=== PATIENT | female | born 1935 | race Caucasian/White ===

== ENCOUNTER 2017-06-15 11:51 | Inpatient (IN) | payer MEDICARE, BC ==
[~2017-06-15] VITALS: Ht 167.6 cm; Wt 57.8 kg
[2017-06-15] VITALS (11 sets, daily range): BP systolic 136–159; BP diastolic 67–86; PULSE 86–101; RESP 20–25; TEMP 95.5–98.6; O2SAT 92–99
[~2017-06-15 11:51] MED LIST: ASPI81TA82 PO; CETI10 PO; CIPRHC10A EACH EAR; DIOV160T60 PO; DORZ1SOL2 EACH EYE; LEVO88TA2 PO; MOTR200T PO; NORV10TA PO; WELC625T2 PO; ZITH250T PO
[2017-06-15] MEDS ORDERED: PROPOFOL 200 MG/20 ML AMP IV ONE (12:00)
[2017-06-15] MEDS ORDERED: SODIUM CHLORIDE 0.9% FLUSH 10 ML FLUSH IVF PRN (12:00)
[2017-06-15 12:22] LABS: AUTOMATED NEUTROPHIL # 5.5 TH/MM3 (1.8-7.7); BASOPHIL # 0.1 TH/MM3 (0-0.2); BASOPHIL % 0.7 % (0.0-2.0); EOSINOPHIL # 0.1 TH/MM3 (0-0.4); EOSINOPHIL % 0.8 % (0.0-4.0); HEMATOCRIT 40.4 % (35.0-46.0); HEMOGLOBIN 13.4 GM/DL (11.6-15.3); LYMPH % 16.1 % (9.0-44.0); LYMPHOCYTE # 1.2 TH/MM3 (1.0-4.8); MEAN CELL VOLUME 87.2 FL (80.0-100.0); MEAN CORPUSCULAR HGB CONC 33.3 % (32.0-36.0); MEAN PLATELET VOLUME 7.9 FL (7.0-11.0); MONO % 9.6 % (0.0-8.0); MONOCYTE # 0.7 TH/MM3 (0-0.9); NEUT % 72.8 % (16.0-70.0); PLATELET COUNT 326 TH/MM3 (150-450); RED BLOOD COUNT 4.63 MIL/MM3 (4.00-5.30); RED CELL DISTRIBUTION WIDTH 14.9 % (11.6-17.2); WHITE BLOOD COUNT 7.6 TH/MM3 (4.0-11.0)
--- NOTE | 2017-06-15 12:25 | PD ---
HPI Chief Complaint: Neuro Symptoms/ Deficits Time Seen by Provider: 11:58 Travel History International Travel<30 days: No (UNABLE TO OBTAIN) Contact w/Intl Traveler<30days: No (UNABLE TO OBTAIN) Traveled to known affect area: No (UNABLE TO OBTAIN) History of Present Illness HPI The patient is a 81-year-old female who presents to the emergency department via EMS as a stroke. According to EMS the patient has some type of muscular dystrophy, they could not elaborate, and stated the patient got up at 5 AM to use the bathroom. The patient was able to ambulate at that time and was speaking according to the who is on scene when they arrived. However, the patient then went and sat in her chair, the stated she was not speaking or moving the right aspect of the body. The patient presented at 11:55 AM, she was aphasic and unable to give any history. No further information was obtainable from the history. The timeframe was obtained from EMS he was on scene and had a discussion with the . PFSH Past Medical History Hx Anticoagulant Therapy: No Cardiovascular Problems: No High Cholesterol: Yes Chemotherapy: No Cerebrovascular Accident: No Diabetes: No Glaucoma: Yes Hypertension: Yes Respiratory: No Thyroid Disease: Yes Menopausal: Yes Past Surgical History Hysterectomy: Yes Joint Replacement: Yes (bilat hip, left knee) Social History Alcohol Use: Yes (occas. wine) Tobacco Use: No Substance Use: No Allergies-Medications (Allergen,Severity, Reaction): Coded Allergies: amoxicillin (Unverified Allergy, Mild, rash, 06/15/17) Reported Meds & Prescriptions Reported Meds & Active Scripts Active Review of Systems ROS Limitations: Clinical Condition, Speech Impaired Except as stated in HPI: all other systems reviewed are Neg Neurologic: Positive: Focal Abnormalities, Other (unable to speak) Physical Exam Narrative GENERAL: Awake, 81 year-old female who appears her stated age and is in no acute respiratory distress. She is unable to speak. SKIN: Focused skin assessment warm/dry. HEAD: Atraumatic. Normocephalic. EYES: Pupils equal and round. 3 mm bilateral. Patient will look at me when I' m on the left side, but does not notice me when I stand on the right side. ENT: No nasal bleeding or discharge. Mucous membranes pink and moist. NECK: Trachea midline. No JVD. CARDIOVASCULAR: Irregularly irregular, tachycardic with a heart rate over 5. RESPIRATORY: No accessory muscle use. Clear to auscultation. Breath sounds equal bilaterally. GASTROINTESTINAL: Abdomen soft, non-tender, nondistended. No rebound tenderness. MUSCULOSKELETAL: No obvious deformities. No clubbing. No cyanosis. No edema. NEUROLOGICAL: Awake and alert. Facial droop on the right side noted. Will not move the right arm or leg. Does not withdraw the right arm or leg to pain. Is able to move her left upper extremity and her left upper extremity. Apparent neglect on the right side of the body. Unable to answer questions in regards to orientation as she is currently aphasic. PSYCHIATRIC: Unable to evaluate. Data Data Last Documented VS Vital Signs Date Time Temp Pulse Resp B/P (MAP) Pulse Ox O2 Delivery O2 Flow Rate FiO2 06/15/17 12:04 93 Room Air 06/15/17 12:01 97.8 101 20 159/86 (110) Orders Orders Electrocardiogram (06/15/17 11:59) Prothrombin Time / Inr (Pt) (06/15/17 11:59) Act Partial Throm Time (Ptt) (06/15/17 11:59) Complete Blood Count With Diff (06/15/17 11:59) Comprehensive Metabolic Panel (06/15/17 11:59) Creatine Kinase (Cpk) (06/15/17 11:59) Troponin I (06/15/17 11:59) Urinalysis - C+S If Indicated (06/15/17 11:59) Ct Brain W/O Iv Contrast(Rout) (06/15/17 11:59) Chest, Single Ap (06/15/17 11:59) Ecg Monitoring (06/15/17 11:59) Iv Access Insert/Monitor (06/15/17 11:59) Oximetry (06/15/17 11:59) Sodium Chloride 0.9% Flush (Ns Flush) (06/15/17 12:00) I-Stat Creatinine (06/15/17 12:05) Cta Brain W Iv Contrast W 3d (06/15/17 12:06) Cta Neck W Iv Contrast W 3d (06/15/17 12:06) I-Stat Profile (06/15/17 12:05) Urinary Catheter Insert/Apply (06/15/17 12:42) Iohexol 350 Inj (Omnipaque 350 Inj) (06/15/17 12:44) Angiogram, Cerebral Wo Arch (06/15/17 ) Labs Laboratory Tests Test 06/15/17 12:05 White Blood Count 7.6 TH/MM3 Red Blood Count 4.63 MIL/MM3 Hemoglobin 13.4 GM/DL Bedside Hemoglobin 14.3 G/DL Hematocrit 40.4 % Bedside Hematocrit 42.0 % Mean Corpuscular Volume 87.2 FL Mean Corpuscular Hemoglobin 29.0 PG Mean Corpuscular Hemoglobin Concent 33.3 % Red Cell Distribution Width 14.9 % Platelet Count 326 TH/MM3 Mean Platelet Volume 7.9 FL Neutrophils (%) (Auto) 72.8 % Lymphocytes (%) (Auto) 16.1 % Monocytes (%) (Auto) 9.6 % Eosinophils (%) (Auto) 0.8 % Basophils (%) (Auto) 0.7 % Neutrophils # (Auto) 5.5 TH/MM3 Lymphocytes # (Auto) 1.2 TH/MM3 Monocytes # (Auto) 0.7 TH/MM3 Eosinophils # (Auto) 0.1 TH/MM3 Basophils # (Auto) 0.1 TH/MM3 CBC Comment DIFF FINAL Differential Comment Prothrombin Time 10.9 SEC Prothromb Time International Ratio 1.1 RATIO Activated Partial Thromboplast Time 23.8 SEC Bedside Sodium 142 MMOL/L Blood Urea Nitrogen 21 MG/DL Creatinine 0.55 MG/DL Random Glucose 105 MG/DL Total Protein 7.6 GM/DL Albumin 3.9 GM/DL Calcium Level 9.0 MG/DL Alkaline Phosphatase 74 U/L Aspartate Amino Transf (AST/SGOT) 27 U/L Alanine Aminotransferase (ALT/SGPT) 35 U/L Total Bilirubin 0.7 MG/DL Sodium Level 141 MEQ/L Potassium Level 3.0 MEQ/L Chloride Level 107 MEQ/L Carbon Dioxide Level 21.7 MEQ/L Bedside Potassium 3.0 MMOL/L Bedside Chloride 109 MMOL/L Anion Gap 12 MEQ/L Bedside Blood Urea Nitrogen 21 MG/DL Bedside Creatinine 0.4 MG/DL Estimat Glomerular Filtration Rate 107 ML/MIN Bedside Glucose 104 MG/DL Total Creatine Kinase 73 U/L Troponin I LESS THAN 0.02 NG/ML MDM Medical Decision Making Medical Screen Exam Complete: Yes Emergency Medical Condition: Yes Medical Record Reviewed: Yes Interpretation(s) EKG reveals atrial fibrillation with RVR, rate 100. Nonspecific ST changes noted in lead V5 and V6. Laboratory Tests Test 06/15/17 12:05 White Blood Count 7.6 TH/MM3 Red Blood Count 4.63 MIL/MM3 Hemoglobin 13.4 GM/DL Bedside Hemoglobin 14.3 G/DL Hematocrit 40.4 % Bedside Hematocrit 42.0 % Mean Corpuscular Volume 87.2 FL Mean Corpuscular Hemoglobin 29.0 PG Mean Corpuscular Hemoglobin Concent 33.3 % Red Cell Distribution Width 14.9 % Platelet Count 326 TH/MM3 Mean Platelet Volume 7.9 FL Neutrophils (%) (Auto) 72.8 % Lymphocytes (%) (Auto) 16.1 % Monocytes (%) (Auto) 9.6 % Eosinophils (%) (Auto) 0.8 % Basophils (%) (Auto) 0.7 % Neutrophils # (Auto) 5.5 TH/MM3 Lymphocytes # (Auto) 1.2 TH/MM3 Monocytes # (Auto) 0.7 TH/MM3 Eosinophils # (Auto) 0.1 TH/MM3 Basophils # (Auto) 0.1 TH/MM3 CBC Comment DIFF FINAL Differential Comment Prothrombin Time 10.9 SEC Prothromb Time International Ratio 1.1 RATIO Activated Partial Thromboplast Time 23.8 SEC Bedside Sodium 142 MMOL/L Blood Urea Nitrogen 21 MG/DL Creatinine 0.55 MG/DL Random Glucose 105 MG/DL Total Protein 7.6 GM/DL Albumin 3.9 GM/DL Calcium Level 9.0 MG/DL Alkaline Phosphatase 74 U/L Aspartate Amino Transf (AST/SGOT) 27 U/L Alanine Aminotransferase (ALT/SGPT) 35 U/L Total Bilirubin 0.7 MG/DL Sodium Level 141 MEQ/L Potassium Level 3.0 MEQ/L Chloride Level 107 MEQ/L Carbon Dioxide Level 21.7 MEQ/L Bedside Potassium 3.0 MMOL/L Bedside Chloride 109 MMOL/L Anion Gap 12 MEQ/L Bedside Blood Urea Nitrogen 21 MG/DL Bedside Creatinine 0.4 MG/DL Estimat Glomerular Filtration Rate 107 ML/MIN Bedside Glucose 104 MG/DL Total Creatine Kinase 73 U/L Troponin I LESS THAN 0.02 NG/ML Last Impressions Head CTA 06/15/17 1206 Signed Impressions: Service Date/Time: Thursday, June 15, 2017 12:28 - CONCLUSION: 1. Presumed embolus to the left M2 segment with partial occlusion of the left MCA territory. 2. Results were called to Dr. Mckinley in the ED at the time of this dictation. Anjel Jauregui MD Head CT 06/15/17 1159 Signed Impressions: Service Date/Time: Thursday, June 15, 2017 12:28 - CONCLUSION: 1. No acute intracranial abnormalities. Casper Mason MD Chest X-Ray 06/15/17 1159 Signed Impressions: Service Date/Time: Thursday, June 15, 2017 12:17 - CONCLUSION: 1. Bilateral mostly basilar airspace disease. Cardiomegaly. Differential diagnosis includes infection and pulmonary edema. Casper Mason MD Differential Diagnosis Differential diagnosis includes CVA, hemorrhage, embolic phenomenon, thrombosis , hypoglycemia, TIA, dissection. Narrative Course IV was established, labs are drawn and sent, and the patient was placed on cardiac telemetry monitoring and continuous pulse oximetry monitoring. EKG was ordered and interpreted. The patient's symptoms apparently started at 5 AM, she was last seen normal, she presented at 11:55 AM, 7 hours from onset. I discussed the patient with the on-call neurologist immediately, Dr. Dominguez, who agrees with CT and CTA to evaluate if there is any interventional radiology intervention warranted. I-STAT was ordered, creatinine was 0.4. I called CT at 12:19 PM and they stated they would call back when he had a room open as they were currently evaluating a stroke alert. CT callback at 12:22 PM and stated the patient could go to room 1. I had a discussion with the patient's at 12:22 PM, he states he last saw her normal at [address] Dominguez the neurologist was in the emergency department at 12:24 PM. I discussed the patient with the interventional radiologist, Dr. Jauregui at 12:47 PM, the patient has a large clot in the left MCA, is a candidate for interventional radiology intervention. I had a discussion with the patient's at bedside who agrees with plan of care. A call was placed back to Dr. Dominguez as well as the on-call health advisor for the intensive surgical care unit as the patient will need to go to [facility] after IR. Critical Care Narrative Aggregate critical care time was 40 minutes. Time to perform other separately billable procedures was not included in the critical care time. My time did not include minutes spent treating any other patients simultaneously or on activities that did not directly contribute to the patient's treatment. The services I provided to this patient were to treat and/or prevent clinically significant deterioration that could result in: Anoxia, hypoxia, hemorrhage, neurologic deficit. I provided critical care services requiring my management, as noted below: Chart data review, documentation time, medication orders and management, vital sign assessments/reviewing monitor data, ordering and reviewing lab tests, ordering and interpreting/reviewing x-rays and diagnostic studies, care of the patient and discussion of the patient with the admitting physicians. Physician Communication Physician Communication A call was placed to the on-call health advisor. I discussed the patient with Dr. Zamora who agrees with admission after the patient goes to IR for neurologic checks in the [facility] overnight. Diagnosis Primary Impression: CVA (cerebral vascular accident) Qualified Codes: I63.9 - Cerebral infarction, unspecified Additional Impression: Aphasic stroke Admitting Information Admitting Physician Requests: Admit Condition: Serious Porfirio Mckinley MD Jun 15, 2017 12:25
[2017-06-15 12:32] LABS: INTERNATIONAL NORMALIZED RATIO 1.1 RATIO; PROTHROMBIN TIME - PATIENT 10.9 SEC (9.8-11.6)
[2017-06-15 12:36] LABS: ALBUMIN 3.9 GM/DL (3.4-5.0); AST (GOT) 27 U/L (15-37); BICARBONATE 21.7 MEQ/L (21.0-32.0); BLOOD UREA NITROGEN 21 MG/DL (7-18); CHLORIDE 107 MEQ/L (98-107); CREATININE 0.55 MG/DL (0.50-1.00); GLOMERULAR FILTRATION RATE 107 ML/MIN (>89); SODIUM (NA) 141 MEQ/L (136-145)
[2017-06-15 12:39] LABS: GLUCOSE,RANDOM 105 MG/DL (74-106)
[2017-06-15] MEDS ORDERED: IOHEXOL 350 MG/ML 10 ML VIAL (for RAD DIAG) IVCONTRAST ONE (12:44)
--- NOTE | 2017-06-15 12:44 | RADRPT ---
EXAM DATE/TIME: 06/15/2017 12:28 [facility] COMPARISON: No previous studies available for comparison. INDICATIONS : Right side weakness. RADIATION DOSE: 33.22 CTDIvol (mGy) MEDICAL HISTORY : Non-responsive. SURGICAL HISTORY : Non-responsive. ENCOUNTER: Initial ACUITY: 1 day PAIN SCALE: Non-responsive LOCATION: cranial TECHNIQUE: Multiple contiguous axial images were obtained of the head. Using automated exposure control and adj ustment of the mA and/or kV according to patient size, radiation dose was kept as low as reasonably a chievable to obtain optimal diagnostic quality images. DICOM format image data is available electro nically for review and comparison. FINDINGS: CEREBRUM: The ventricles are normal for age. No evidence of midline shift, mass lesion, hemorrhage or acute in farction. No extra-axial fluid collections are seen. POSTERIOR FOSSA: The cerebellum and brainstem are intact. The 4th ventricle is midline. The cerebellopontine angle i s unremarkable. EXTRACRANIAL: The visualized portion of the orbits is intact. SKULL: The calvaria is intact. No evidence of skull fracture. CONCLUSION: 1. No acute intracranial abnormalities. Casper Mason MD on June 15, 2017 at 12:40 Board Certified Radiologist. This report was verified electronically.
[2017-06-15 12:48] LABS: ALKALINE PHOSPHATASE 74 U/L (45-117); ALT (GPT) 35 U/L (10-53); TOTAL BILIRUBIN ADULT 0.7 MG/DL (0.2-1.0); TOTAL PROTEIN 7.6 GM/DL (6.4-8.2); TROPONIN I LESS THAN 0.02 NG/ML (0.02-0.05)
--- NOTE | 2017-06-15 12:50 | RADRPT ---
EXAM DATE/TIME: 06/15/2017 12:28 [facility] COMPARISON: No previous studies available for comparison. INDICATIONS : Right side weakness IV CONTRAST: 71 cc Omnipaque 350 (iohexol) IV ; Cumulative dose for multiple exams. RADIATION DOSE: 26.66 CTDIvol (mGy) ; Combined studies MEDICAL HISTORY : Hypertension. Thyroid disease SURGICAL HISTORY : Hysterectomy. ENCOUNTER: Initial ACUITY: 1 day PAIN SCALE: Non-responsive LOCATION: cranial TECHNIQUE: Volumetric scanning was performed using a multi-row detector CT scanner. The data was post processed with a variety of visualization algorithms including full volume maximum intensity projection, multi -planar sliding thin slab reformation, curved planar reformation, and surface rendering techniques. Using automated exposure control and adjustment of the mA and/or kV according to patient size, radiat ion dose was kept as low as reasonably achievable to obtain optimal diagnostic quality images. DICO M format image data is available electronically for review and comparison. FINDINGS: There is excellent visualization of the major intracranial arteries out to the second-order branch ve ssels. Partially occlusive thrombus in the anterior segment of the left MCA territory. Intracranial v essels are otherwise patent without aneurysmal disease. CONCLUSION: 1. Presumed embolus to the left M2 segment with partial occlusion of the left MCA territory. 2. Results were called to Dr. Mckinley in the ED at the time of this dictation. Anjel Jauregui MD on June 15, 2017 at 12:44 Board Certified Radiologist. This report was verified electronically.
--- NOTE | 2017-06-15 12:53 | RADRPT ---
EXAM DATE/TIME: 06/15/2017 12:17 [facility] COMPARISON: No previous studies available for comparison. INDICATIONS : CVA MEDICAL HISTORY : None known SURGICAL HISTORY : None known ENCOUNTER: Initial ACUITY: 1 day PAIN SCORE: Non-responsive. LOCATION: Bilateral chest FINDINGS: A single view of the chest demonstrates bilateral mostly basilar airspace disease and small effusions . Cardiomegaly. Tortuous aorta. No pneumothorax. CONCLUSION: 1. Bilateral mostly basilar airspace disease. Cardiomegaly. Differential diagnosis includes infection and pulmonary edema. Casper Mason MD on June 15, 2017 at 12:50 Board Certified Radiologist. This report was verified electronically.
[2017-06-15] MEDS: SODIUM CHLOR 0.9% 1000 ML INJ 1,000 ML IV SCH (13:00)
[2017-06-15] MEDS ORDERED: GLUCAGON 1 MG/ML VIAL OTHER PRN (13:00)
[2017-06-15] MEDS ORDERED: SODIUM CHLORIDE 0.9% FLUSH 10 ML FLUSH IV FLUSH PRN ×2 (13:00→13:15)
[2017-06-15] MEDS ORDERED: DEXTROSE 50% IN WATER 50 ML VIAL(D50) IV PUSH PRN (13:00)
[2017-06-15] MEDS ORDERED: SENNOSIDES 8.6 MG TAB PO PRN (13:15)
[2017-06-15] MEDS ORDERED: BISACODYL 10 MG SUPP RECTAL PRN (13:15)
[2017-06-15] MEDS ORDERED: RESP: ALBUTEROL 2.5 MG/3 ML NEB (PRN) INH (13:15)
[2017-06-15] MEDS ORDERED: ACETAMINOPHEN/HYDROcodone 325 MG/5 MG TAB PO PRN (13:15)
[2017-06-15] MEDS ORDERED: LACTULOSE SYRUP 20 GM/30 ML CUP PO PRN (13:15)
[2017-06-15] MEDS ORDERED: ACETAMINOPHEN 325 MG TAB PO PRN (13:15)
[2017-06-15] MEDS ORDERED: MISCELLANEOUS NURSING INFORMATION XX SCH (13:15)
[2017-06-15] MEDS ORDERED: CHLORHEXIDINE GLUCONATE 2 % 1 PACK (2 CLOTHS) TOP PRN (13:15)
[2017-06-15] MEDS ORDERED: MAGNESIUM HYDROXIDE SUSP 30 ML CUP PO PRN (13:15)
[2017-06-15] MEDS ORDERED: ONDANSETRON HCL 4 MG/2 ML VIAL IV PUSH PRN (13:15)
[2017-06-15] MEDS ORDERED: VERAPAMIL HCL 5 MG/2 ML VIAL ONE (13:16)
[2017-06-15 13:27] LABS: BACTERIA, URINE RARE /hpf; BILIRUBIN, URINE NEG (NEG); BLOOD, URINE NEG (NEG); GLUCOSE,URINE NEG (NEG); KETONE, URINE 40 mg/dL (NEG); MUCUS URINE FEW /lpf (OCC); NITRITE,URINE NEG (NEG); PH, URINE 5.5 (5.0-8.5); URINE COLOR YELLOW (YELLW/STRAW); URINE LEUKOCYTE ESTERASE NEG (NEG)
--- NOTE | 2017-06-15 13:38 | RADRPT ---
EXAM DATE/TIME: 06/15/2017 12:28 [facility] COMPARISON: No previous studies available for comparison. INDICATIONS : Right side weakness IV CONTRAST: 71 cc Omnipaque 350 (iohexol) IV ; Cumulative dose for multiple exams. RADIATION DOSE: 26.66 CTDIvol (mGy) ; Combined studies MEDICAL HISTORY : Hypertension. Thyroid disease SURGICAL HISTORY : Hysterectomy. ENCOUNTER: Initial ACUITY: 1 day PAIN SCALE: Non-responsive LOCATION: cranial Elevated flow velocities and ICA/CCA ratios have been found to correlate with increased degrees of vessel stenosis, calculated as percentage of diameter relative to a normal segment of distal ICA/CCA. TECHNIQUE: Volumetric scanning was performed using a multirow detector CT scanner. The data was post processed with a variety of visualization algorithms including full-volume maximum intensity projection, multip lanar sliding thin-slab reformation, curved-planar reformation, and surface-rendering techniques. Us ing automated exposure control and adjustment of the mA and/or kV according to patient size, radiatio n dose was kept as low as reasonably achievable to obtain optimal diagnostic quality images. DICOM f ormat image data is available electronically for review and comparison. FINDINGS: AORTIC ARCH: There is a three-vessel origin of the great vessels from the aorta. Mild calcified plaque at the orig in of the brachiocephalic and left subclavian arteries with resultant mild stenosis of the left subcl serg artery origin. RIGHT CAROTID: The common carotid artery is intact. The carotid bulb has a normal configuration without ulceration o r narrowing. Minimal focal calcified plaque in the proximal right internal carotid artery without sig nificant stenosis. The internal carotid artery lumen is otherwise smooth without stenosis. The exter nal carotid artery is intact. LEFT CAROTID: The common carotid artery is intact. The carotid bulb has a normal configuration without ulceration or narrowing. Mild eccentric primarily calcified plaque in the proximal carotid artery with resultan t less than 20% stenosis. The internal carotid artery lumen is otherwise smooth without stenosis. Th e external carotid artery is intact. VERTEBRALS: The vertebral arteries have a symmetric diameter. No stenotic lesions are seen. Nonvascular findings: Visualized lung apices demonstrate moderate lateral pleural effusions with diffuse groundglass opacit ies in the lung apices consistent with a pulmonary edema pattern. No significant cervical adenopathy or mass. CONCLUSION: 1. Minimal focal plaque in the proximal right internal carotid arteries without flow-limiting stenosi s. 2. Mild eccentric primarily calcified plaque in the proximal left internal carotid artery with result ant less than 40% stenosis. 3. Codominant patent vertebral arteries. 4. Incidental note of moderate bilateral pleural effusions with diffuse groundglass opacities in the visualized lung apices consistent with pulmonary edema pattern. Crispin Boyce MD on June 15, 2017 at 13:25 Board Certified Radiologist. This report was verified electronically.
[2017-06-15] MEDS ORDERED: MORPHINE SULFATE 2 MG/ML INJ IV PUSH PRN (13:45)
[2017-06-15] MEDS ORDERED: VANCOMYCIN HCL 1000 MG VIAL ONE (14:04)
[2017-06-15] MEDS ORDERED: SODIUM CHLOR 0.9% 250 ML INJ 250 ML ONE (14:04)
[2017-06-15] MEDS ORDERED: HEPARIN SODIUM - IV 10,000 UNITS/10 ML VIAL ONE (14:10)
[2017-06-15] MEDS ORDERED: NITROGLYCERIN 2% OINT 1 GM PACKET ONE (14:19)
[2017-06-15] MEDS ORDERED: IODIXANOL 320 MG/ML 50 ML VIAL (for RAD SPEC) I-ARTERIAL ONE (14:32)
--- NOTE | 2017-06-15 14:49 | HHI.HP ---
HPI Service Critical Care Medicine Primary Care Physician Unknown Admission Diagnosis CVA with aphasia, left MCA infarct Diagnosis: (1) NSAID long-term use Diagnosis: Secondary (2) Dyslipidemia Diagnosis: Secondary (3) Hypertension Diagnosis: Principal (4) Atrial fibrillation Diagnosis: Principal (5) Hypothyroidism Diagnosis: Principal (6) Glaucoma Diagnosis: Secondary (7) Muscular dystrophy Diagnosis: Principal (8) CVA (cerebral vascular accident) Diagnosis: Principal (9) Aphasic stroke Diagnosis: Principal Chief Complaint: Last seen normal state of health at 5 AM. Currently with aphasia and Right sided weakness. Travel History International Travel<30 Days: No (UNABLE TO OBTAIN) Contact w/Intl Traveler <30 Da: No (UNABLE TO OBTAIN) Traveled to Known Affected Are: No (UNABLE TO OBTAIN) History of Present Illness 81-year-old female. Date of admission 06/15/2017. Past medical history includes muscular dystrophy/genetic unknown type, glaucoma, hypothyroidism, hypertension dyslipidemia. She also uses chronic NSAIDs 4.. Patient presents to [place] ED the following history. Approximately 5 AM, patient acute onset of right-sided weakness she has baseline muscular dystrophy with decreased range of motion. She does use a walker to ambulate at baseline. Upon presentation patient to collect right-sided, right upper and lower extremity flaccidity. Normal strength/sensation left upper and lower extremity. Stroke alert was called. CT brain revealed no acute intracranial findings. CT angiogram of the brain revealed occlusion of the left M2 segment of the MCA. Patient is currently in IR for stent thrombosis retrieval. Currently on 2 L nasal cannula and hemodynamically stable. Review of Systems ROS Limitations: Clinical Condition, Altered Mental Status Past Family Social History Allergies: Coded Allergies: amoxicillin (Unverified Allergy, Mild, rash, 06/15/17) Past Medical History Muscular dystrophy Glaucoma Hypothyroidism Hypertension Dyslipidemia Chronic NSAID use Past Surgical History Bilateral total hip replacement Left total knee replacement 2 Basal cell carcinoma the face removal Reported Medications Colesevelam 625 mg by mouth 3 times a day Amlodipine 10 mg by mouth daily Ibuprofen when necessary Timolol unknown percentage 1 drop each eye twice a day Latanoprost 0.005% 1 drop each eye at night Active Ordered Medications Reviewed in EMR Family History does not know family history of his . is unable to respond. No prior medical records Social History Denies alcohol, tobacco or intravenous drug use Physical Exam Vital Signs Vital Signs Date Time Temp Pulse Resp B/P (MAP) Pulse Ox O2 Delivery O2 Flow Rate FiO2 06/15/17 12:04 93 Room Air 06/15/17 12:01 97.8 101 20 159/86 (110) 94 Physical Exam GENERAL: Awake, 81 year-old female who appears her stated age and is in no acute respiratory distress. A phasic SKIN: Focused skin assessment warm/dry. HEAD: Atraumatic. Normocephalic. EYES: Pupils equal and round. 3 mm bilateral. ENT: No nasal bleeding or discharge. Mucous membranes pink and moist. NECK: Trachea midline. No JVD. CARDIOVASCULAR: IRR. S1, S2 without murmur RESPIRATORY: No accessory muscle use. Clear to auscultation. Breath sounds equal bilaterally. GASTROINTESTINAL: Abdomen soft, non-tender, nondistended. No rebound tenderness. MUSCULOSKELETAL: No obvious deformities. No clubbing. No cyanosis. No edema. NEUROLOGICAL: Awake and alert. Right-sided facial droop. Strength is 0 out of 5 right upper and lower extremity.. Does not withdraw the right arm or leg to pain. Strength 4-5left upper extremity and left upper extremity. Apparent neglect on the right side of the body. Unable to answer questions in regards to orientation as she is currently aphasic. PSYCHIATRIC: Unable to evaluate. Laboratory Laboratory Tests Test 06/15/17 12:05 06/15/17 12:49 White Blood Count 7.6 Red Blood Count 4.63 Hemoglobin 13.4 Bedside Hemoglobin 14.3 Hematocrit 40.4 Bedside Hematocrit 42.0 Mean Corpuscular Volume 87.2 Mean Corpuscular Hemoglobin 29.0 Mean Corpuscular Hemoglobin Concent 33.3 Red Cell Distribution Width 14.9 Platelet Count 326 Mean Platelet Volume 7.9 Neutrophils (%) (Auto) 72.8 Lymphocytes (%) (Auto) 16.1 Monocytes (%) (Auto) 9.6 Eosinophils (%) (Auto) 0.8 Basophils (%) (Auto) 0.7 Neutrophils # (Auto) 5.5 Lymphocytes # (Auto) 1.2 Monocytes # (Auto) 0.7 Eosinophils # (Auto) 0.1 Basophils # (Auto) 0.1 CBC Comment DIFF FINAL Differential Comment Prothrombin Time 10.9 Prothromb Time International Ratio 1.1 Activated Partial Thromboplast Time 23.8 Bedside Sodium 142 Blood Urea Nitrogen 21 Creatinine 0.55 Random Glucose 105 Total Protein 7.6 Albumin 3.9 Calcium Level 9.0 Alkaline Phosphatase 74 Aspartate Amino Transf (AST/SGOT) 27 Alanine Aminotransferase (ALT/SGPT) 35 Total Bilirubin 0.7 Sodium Level 141 Potassium Level 3.0 Chloride Level 107 Carbon Dioxide Level 21.7 Bedside Potassium 3.0 Bedside Chloride 109 Anion Gap 12 Bedside Blood Urea Nitrogen 21 Bedside Creatinine 0.4 Estimat Glomerular Filtration Rate 107 Bedside Glucose 104 Total Creatine Kinase 73 Troponin I LESS THAN 0.02 Urine Color YELLOW Urine Turbidity CLEAR Urine pH 5.5 Urine Specific [place] GREATER THAN 1.050 Urine Protein 30 Urine Glucose (UA) NEG Urine Ketones 40 Urine Occult Blood NEG Urine Nitrite NEG Urine Bilirubin NEG Urine Urobilinogen LESS THAN 2.0 Urine Leukocyte Esterase NEG Urine RBC 1 Urine WBC 1 Urine Bacteria RARE Urine Mucus FEW Microscopic Urinalysis Comment CATH-CULTURE IND Date/Time Source Procedure Growth Status 06/15/17 12:49 Urine Catheterized Urine Urine Culture Pending Received Result Diagram: 06/15/17 1205 06/15/17 1205 Imaging Last Impressions Neck CTA 06/15/17 1206 Signed Impressions: Service Date/Time: Thursday, June 15, 2017 12:28 - CONCLUSION: 1. Minimal focal plaque in the proximal right internal carotid arteries without flow-limiting stenosis. 2. Mild eccentric primarily calcified plaque in the proximal left internal carotid artery with resultant less than 40%% stenosis. 3. Codominant patent vertebral arteries. 4. Incidental note of moderate bilateral pleural effusions with diffuse groundglass opacities in the visualized lung apices consistent with pulmonary edema pattern. Crispin Boyce MD Head CTA 06/15/17 1206 Signed Impressions: Service Date/Time: Thursday, June 15, 2017 12:28 - CONCLUSION: 1. Presumed embolus to the left M2 segment with partial occlusion of the left MCA territory. 2. Results were called to Dr. Mckinley in the ED at the time of this dictation. Anjel Jauregui MD Head CT 06/15/17 1159 Signed Impressions: Service Date/Time: Thursday, June 15, 2017 12:28 - CONCLUSION: 1. No acute intracranial abnormalities. Casper Mason MD Chest X-Ray 06/15/17 1159 Signed Impressions: Service Date/Time: Thursday, June 15, 2017 12:17 - CONCLUSION: 1. Bilateral mostly basilar airspace disease. Cardiomegaly. Differential diagnosis includes infection and pulmonary edema. Casper Mason MD Septic Shock Reassessment Septic shock perfusion: reassessment completed Caprini VTE Risk Assessment Caprini VTE Risk Assessment: Mod/High Risk (score >= 2) VTE Pharm Contraindication: High risk for bleeding Caprini Risk Assessment Model Point Value = 1 Point Value = 2 Point Value = 3 Point Value = 5 Age 41-60 Minor surgery BMI > 25 kg/m2 Swollen legs Varicose veins or History of unexplained or recurrent spontaneous Oral contraceptives or hormone replacement Sepsis (< 1 month) Serious lung disease, including pneumonia (< 1 month) Abnormal pulmonary function Acute myocardial infarction Congestive heart failure (< 1 month) History of inflammatory bowel disease Medical patient at bed rest Age 61-74 Arthroscopic surgery Major open surgery (> 45 min) Laparoscopic surgery (> 45 min) Malignancy Confined to bed (> 72 hours) Immobilizing plaster cast Central venous access Age >= 75 History of VTE Family history of VTE Factor V Leiden Prothrombin [id number] Lupus anticoagulant Anticardiolipin antibodies Elevated serum homocysteine Heparin-induced thrombocytopenia Other congenital or acquired thrombophilia Stroke (< 1 month) Elective arthroplasty Hip, pelvis, or leg fracture Acute spinal cord injury (< 1 month) Prophylaxis Regimen Total Risk Factor Score Risk Level Prophylaxis Regimen 0-1 Low Early ambulation 2 Moderate Order ONE of the following: *Sequential Compression Device (SCD) *Heparin 5000 units SQ BID 3-4 Higher Order ONE of the following medications: *Heparin 5000 units SQ TID *Enoxaparin/Lovenox 40 mg SQ daily (WT < 150 kg, CrCl > 30 mL/min) *Enoxaparin/Lovenox 30 mg SQ daily (WT < 150 kg, CrCl > 10-29 mL/min) *Enoxaparin/Lovenox 30 mg SQ BID (WT < 150 kg, CrCl > 30 mL/min) AND/OR *Sequential Compression Device (SCD) 5 or more Highest Order ONE of the following medications: *Heparin 5000 units SQ TID (Preferred with Epidurals) *Enoxaparin/Lovenox 40 mg SQ daily (WT < 150 kg, CrCl > 30 mL/min) *Enoxaparin/Lovenox 30 mg SQ daily (WT < 150 kg, CrCl > 10-29 mL/min) *Enoxaparin/Lovenox 30 mg SQ BID (WT < 150 kg, CrCl > 30 mL/min) AND *Sequential Compression Device (SCD) Assessment and Plan Assessment and Plan Neuro/Psych: 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 Jauregui Glaucoma History of muscle dystrophy CT brain - no acute cranial findings CTA brain - left M2 partial-occlusion MCA distribution CTA neck - Minimal focal plaque in the proximal right internal carotid arteries without flow-limiting stenosis. Mild eccentric primarily calcified plaque in the proximal left internal carotid artery with resultant less than 40 % stenosis. NCodominant patent vertebral arteries. Incidental note of moderate bilateral pleural effusions with diffuse groundglass opacities in the visualized lung apices consistent with pulmonary edema pattern. Continue timolol and latanoprost for glaucoma CV: Hypertension Dyslipidemia Treat keep systolic blood pressure less than 185, diastolic versus 110 Start aspirin 12-24 hrs. post procedure if no bleeding on repeat CT brain 2-D echocardiogram ordered Lipid panel ordered for a.m. Colesevelam 625 mg 3 times a day currently on hold Amlodipine 10 mg by mouth daily currently on hold Resp: Nasal cannula for saturations greater than equal to 92% Incentive spirometry while awake Possible pulmonary edema on chest x-ray. Gently diurese GI: Patient is currently nothing by mouth Pantoprazole for GI prophylaxis Docusate sodium/senna 1 tablet twice a day for bowel regimen : Hills catheter for accurate I's and O's in a critically ill patient Endo: Hypothyroidism Sliding-scale insulin if indicated to maintain euglycemia Follow-up TSH. Currently not on any medication according to Renal: Creatinine currently within normal limits Monitor urine output Accurate I's and O's Heme: CBC within normal limits. Recheck in a.m. ID: Monitor for infection UA results pending MSK: PT/OT evaluate and treat FEN: Hypokalemia Replace electrolytes per ICU electrolyte protocol Access - Utilize peripheral IV. Central line if indicated Prophylaxis - GI -pantoprazole - DVT - SCD/holding pharmacological prophylaxis due to high risk of bleeding status post stent thrombosis retrieval Level III admission Discussed with Dr. Dominguez. Will likely start anticoagulation in a.m. if CT brain negative. MRI brain in tomorrow. Likely initiated with heparin drip and transition to Apixaban/NOAC within the next 48-72 hours. Code Status Full code Discussed Condition With Patient's . ED physician Elías. Care plan discussed and all questions answered. Problem Qualifiers (1) Hypertension: Qualified Codes: I10 - Essential (primary) hypertension (2) Atrial fibrillation: Qualified Codes: I48.91 - Unspecified atrial fibrillation (3) Hypothyroidism: Qualified Codes: E03.9 - Hypothyroidism, unspecified (4) Glaucoma: Qualified Codes: H40.1130 - Primary open-angle glaucoma, bilateral, stage unspecified (5) CVA (cerebral vascular accident): Qualified Codes: I63.9 - Cerebral infarction, unspecified Germán Zamora MD Jun 15, 2017 14:49
--- NOTE | 2017-06-15 15:10 | PD.RAD ---
Post Procedure Progress Note Pre Procedure Diagnosis: (1) Aphasic stroke (2) CVA (cerebral vascular accident) Post Procedure Diagnosis: (1) CVA (cerebral vascular accident) (2) Aphasic stroke Procedure Date: Jun 15, 2017 Supervising Radiologist: Anjel Jauregui Proceduralist/Assist: Yolanda Bautista, RT(R), Cody Farmer, RT(R), Claudia York, RT(R) Anesthesia: MAC Plan of Activity Patient to Unit: ROPU Patient Condition: Good See PACS Report for procedural detail/treatment Vascular-Arterial Procedure Procedure 1 Procedure Site: Cerebral (Left MCA) Procedure(s): Embolectomy (left MCA) Access Access Site(s): Right Femoral Artery Closure Site(s): Right vascular closure device (PerClose x 2) Findings: Embolectomy left MCA Anjel Jauregui MD Jun 15, 2017 15:10
[2017-06-15] MEDS ORDERED: MAGNESIUM OXIDE 400 MG TAB PO PRN (15:15)
[2017-06-15] MEDS ORDERED: MAGNESIUM SULFATE INJ 2 GM in SODIUM CHLORIDE 0.9% INJ 96 ML IV PRN (15:15)
[2017-06-15] MEDS ORDERED: SODIUM PHOSPHATE INJ 30 MMOL in SODIUM CHLOR 0.9% 250 ML INJ 240 ML IV PRN (15:15)
[2017-06-15] MEDS ORDERED: MAGNESIUM SULFATE INJ 4 GM in SODIUM CHLORIDE 0.9% INJ 92 ML IV PRN (15:15)
[2017-06-15] MEDS ORDERED: POTASSIUM PHOSPHATE MONOBASIC 500 MG TAB PO/TUBE PRN (15:15)
[2017-06-15] MEDS ORDERED: POTASSIUM CHLOR 40 MEQ PREMIX 100 ML IV PRN ×2 (15:15)
[2017-06-15] MEDS ORDERED: POTASSIUM PHOSPHATE MONOBASIC 500 MG TAB PO PRN (15:15)
[2017-06-15] MEDS ORDERED: POTASSIUM PHOSPHATE INJ 30 MMOL in SODIUM CHLOR 0.9% 250 ML INJ 250 ML IV PRN (15:15)
[2017-06-15] MEDS ORDERED: POTASSIUM CHLORIDE 25 MEQ EFFERVESCENT TAB PO PRN (15:15)
[2017-06-15] MEDS ORDERED: POTASSIUM CHLOR 20 MEQ PREMIX 100 ML IV PRN ×2 (15:15)
[2017-06-15] MEDS: RESP: ALBUTEROL 2.5 MG/IPRATROPIUM 0.5 MG NEB (SCH) INH ×2 (15:55→21:09)
[2017-06-15] MEDS ORDERED: niCARdipine INJ 25 MG in SODIUM CHLOR 0.9% 250 ML INJ 240 ML IV PRN (16:00)
[2017-06-15] MEDS ORDERED: ENALAPRILAT 1.25 MG/ML VIAL IV PUSH PRN (16:00)
[2017-06-15] MEDS ORDERED: LABETALOL HCL 100 MG/20 ML VIAL IV PUSH PRN (16:00)
[2017-06-15] MEDS ORDERED: hydrALAZINE HCL 20 MG/ML VIAL IV PUSH PRN (16:00)
[2017-06-15] MEDS ORDERED: FUROSEMIDE 40 MG/4 ML VIAL IV PUSH ONE (16:30)
[2017-06-15] MEDS: METOPROLOL TARTRATE 5 MG/5 ML VIAL IV PUSH SCH ×2 (16:51→22:27)
[2017-06-15] MEDS: POTASSIUM CHLOR 10 MEQ PREMIX 100 ML IV SCH ×3 (16:51→18:51)
--- NOTE | 2017-06-15 16:54 | MB ---
cc: YAZMIN RICE M.D. DATE OF CONSULTATION: 06/15/2017 REASON FOR CONSULTATION: HISTORY OF PRESENT ILLNESS: The patient is a 81-year-old seen in neurological consultation. The patient was in the emergency room when I was briefly able to see her. I discussed the case with the ED physician, Dr. Mckinley, on a couple of occasions. She was noted to get up at around 5:00 a.m. and go to the bathroom and seemed to be just fine. She went back to bed and later on the found the patient poorly responsive and she was brought to the hospital. She arrived in the emergency room around 11 o'clock. I spoke to Dr. Mckinley immediately after the patient arrived and we suggested obtaining a CT angio of the head and neck besides a CT brain as well. There is some sort of muscular dystrophy history. There was limited information thus far on this patient. She was noted to have atrial fibrillation and she was not on any anticoagulation. History of hypertension and hyperlipidemia, but no diabetes. The exam was brief as the patient was on her way to the CT brain study when I had a chance to see her in the emergency room. She was noted to have left gaze preference and the right hemiparesis, severe. No speech. IMAGING STUDIES: I saw the neck CT angio and this was essentially showing no significant stenosis, though there is left internal carotid, less than 40% narrowing. The CT angio head was also reviewed showing occlusion of the left M2 segment. LABORATORY DATA: CBC unremarkable. Chemistry with potassium initially 3.00, sodium normal, BUN 21, creatinine normal 0.55. Glucose 105. ASSESSMENT Left M2 embolism probably from atrial fibrillation. After the patient's CT angiogram, she was felt to be a good candidate for clot retrieval and she was no longer a candidate for TPA due to the timing. The patient was last observed to be without neurological deficit. I subsequently returned to see the patient but she was still in the interventional suite for the clot removal procedure with Dr. Jauregui. I will follow the neurological course. I also discussed the case briefly with the gold tooler, Dr. Zamora. Yazmin Rice MD [facility]/ESS[facility] /3:03 PM /4:35 PM
[2017-06-15] MEDS ORDERED: POTASSIUM CHLORIDE 20 MEQ PWD PACKET PO ONE (17:00)
[2017-06-15] MEDS: INSULIN ASPART SUPPLEMENTAL SCALE SQ SCH ×2 (17:00→20:52)
--- NOTE | 2017-06-15 17:00 | RADRPT ---
EXAM DATE/TIME: 06/15/2017 13:07 [place] COMPARISON: No previous studies available for comparison. INDICATIONS : Patient presents with left MCA stroke in need of thromectomy. MEDICAL HISTORY : HLD, HTN, Thyroid disease SURGICAL HISTORY : Bilateral hip replacement ENCOUNTER: Initial ACUITY: 1 day PAIN SCORE: Nonresponsive. FLUORO TIME: 17.9 minutes IMAGE SERIES: 10 ACCESS SITE: Right Femoral artery CONTRAST: 50 cc Visipaque (iodixanol) DEVICE(S): 1.) Left middle cerebral artery ROSINA 68 Kit Reperfusion catheter 2.) Right common femoral artery 6F Perclose 3.) Right common femoral artery 6F Perclose TIMELINE: Interventional team called: N/A Interventional team arrived: N/A Interventional team ready: 1250 pm Patient arrival: 1308 pm Groin puncture: 1323 pm Recanalization: 1358 pm Anesthesia and pain control was provided by the Anesthesia department. PROCEDURE : 1. Ultrasound-guided puncture of the access site. 2. Angiography of the access site prior to closure device. 3. Conscious sedation with continuous EKG and Oximetry monitoring. 4. Percutaneous closure of the access site. 5. Angiography of the insular branch of the left MCA territory 6. embolectomy, left M2 segment The risks, benefits and alternatives to the procedure were explained and verbal and written consent w as obtained. The site was prepped in sterile fashion. Full sterile technique was used, including ca p, mask, sterile gloves and gown and a large sterile sheet. Hand hygiene and 2% chlorhexidine and/or betadine/alcohol prep was utilized per protocol for cutaneous antisepsis. Sterile gel and sterile p robe cover were utilized for ultrasound guidance. The skin and subcutaneous tissues were infiltrated with local anesthetic solution. With ultrasound and fluoroscopic guidance the selected artery was punctured and a vascular sheath was placed. Angiography of the common femoral artery was performed for evaluation prior to percutaneous closure device placement. JB2 catheter and a Glidewire was initially utilized to access the left common carotid artery. I could not maintain adequate purchase with this device. Therefore, catheter was exchanged for 100 cm [employer] glide. Catheter was manipulated into the origin of the vessel and a Glidewire advanced into the external. Catheter was advanced over the wire. Wire was then exchanged for the Magic torque to facili lares placement of the 90 cm 8 [place] Neuron-guide catheter. Wire was moved back out of the external a nd into the internal facilitate placement of the neuron catheter into the proximal Candy portion of the internal. Catheter was connected to a verapamil pressure bag. Contrast injection through the sandrine e port confirmed occlusion of the junction of the M1 and M2 segments of the left middle cerebral melisa ry. A coaxial system utilizing the agility wire, 29[employer]man microcatheter and 68 ROSINA Penumbra catheter were then advanced through the Neuron guide cath. The wire and microcatheter were manipulated up to and t hrough the embolus into what appears to be the insular branch of the left MCA territory. Position was confirmed with positive contrast. Wire was restored back into the microcatheter to facilitate advanc ement of the penumbra catheter the proximal edge of the thrombus. Catheter was connected to vacuum myers ction for approximately 150 seconds. Catheter was slowly withdrawn while maintaining aspiration on th e side port of the neuron guide catheter. Post embolectomy images show complete taoist ROHIT III flow with no residual thrombus. Hemostasis was obtained with the prescribed medicated closure device. Conscious sedation was perform ed with the prescribed dosages and duration as above in the presence of an independent trained radiol ogy nurse to assist in the monitoring of the patient. EKG and oximetry remained stable throughout th e procedure. CONCLUSION: Successful left MCA embolectomy as above. Anjel Jauregui MD on June 15, 2017 at 16:49 Board Certified Radiologist. This report was verified electronically.
[2017-06-15] MEDS: ARTIFICIAL TEARS OPTH SOLN 15 ML BTL EACH EYE SCH (18:00)
--- NOTE | 2017-06-15 18:37 | HHI.PR ---
Review/Management Daily Summary 06/15 seen half hour ago markedly improved no aphasia, no hemiparesis alert and oriented, no distress, no headaches at bedside discussed with dr Noah calderón heparin IV for 24-36 hrs the start bridging to coumadin or eliquis or similar Subjective Active Medications Current Medications Medications (Trade) Dose Ordered Sig/Conor Route Start Time Stop Time Status Last Admin (NovoLOG SUPPLEMENTAL SCALE) 1 ACHS SQ 06/15/17 17:00 (D50w (Vial) Inj) 50 ml UNSCH PRN IV PUSH 06/15/17 13:00 (Glucagon Inj) 1 mg UNSCH PRN OTHER 06/15/17 13:00 Sodium Chloride 1,000 ml @ 84 mls/hr [id number] IV 06/15/17 13:00 06/15/17 13:00 (NS Flush) 2 ml UNSCH PRN IV FLUSH 06/15/17 13:15 (NS Flush) 2 ml BID IV FLUSH 06/15/17 21:00 (Tylenol) 650 mg Q6H PRN PO 06/15/17 13:15 ([place] 5-325 Mg) 1 tab Q4H PRN PO 06/15/17 13:15 (Morphine Inj) 2 mg Q2H PRN IV PUSH 06/15/17 13:45 (Protonix) 40 mg DAILY PO 06/16/17 09:00 (Tears Naturale Opth Soln) 1 drop TID EACH EYE 06/15/17 18:00 (Zofran Inj) 4 mg Q6H PRN IV PUSH 06/15/17 13:15 (Duoneb Neb) 1 ampule Q6HR NEB INH 06/15/17 16:00 06/15/17 15:55 (Albuterol Neb) 2.5 mg Q2HR NEB PRN INH 06/15/17 13:15 Miscellaneous Information 1 [id number] XX 06/15/17 13:15 (Chlorhexidine 2% Cloth) 3 pack Taper DAILY@04 TOP 06/16/17 04:00 06/12/18 03:59 (Chlorhexidine 2% Cloth) 3 pack UNSCH PRN TOP 06/15/17 13:15 (Hilda-Colace) 1 tab BID PO 06/15/17 21:00 (Milk Of Magnesia Liq) 30 ml Q12H PRN PO 06/15/17 13:15 (Senokot) 17.2 mg Q12H PRN PO 06/15/17 13:15 (Dulcolax Supp) 10 mg DAILY PRN RECTAL 06/15/17 13:15 (Lactulose Liq) 30 ml DAILY PRN PO 06/15/17 13:15 (Timoptic 0.25% Opth Soln) 1 drop Q12HR EACH EYE 06/15/17 21:00 (Xalatan 0.005% Opth Soln) 1 drop HS EACH EYE 06/15/17 21:00 Potassium Chloride 100 ml @ 50 mls/hr Q2H PRN IV 06/15/17 15:15 Potassium Chloride 100 ml @ 50 mls/hr Q2H PRN IV 06/15/17 15:15 (K-Lyte Cl Eff) 50 meq UNSCH PRN PO 06/15/17 15:15 Potassium Chloride 100 ml @ 25 mls/hr UNSCH PRN IV 06/15/17 15:15 Potassium Chloride 100 ml @ 50 mls/hr Q2H PRN IV 06/15/17 15:15 Magnesium Sulfate 4 gm/Sodium Chloride 100 ml @ 50 mls/hr UNSCH PRN IV 06/15/17 15:15 (Mag-Ox) 800 mg UNSCH PRN PO 06/15/17 15:15 Magnesium Sulfate 2 gm/Sodium Chloride 100 ml @ 50 mls/hr UNSCH PRN IV 06/15/17 15:15 (K-Phos) 2,000 mg Q4H PRN PO 06/15/17 15:15 Sodium Phosphate 30 mmol/Sodium Chloride 250 ml @ 42 mls/hr UNSCH PRN IV 06/15/17 15:15 (K-Phos) 2,000 mg UNSCH PRN PO/TUBE 06/15/17 15:15 Potassium Phosphate 30 mmol/ Sodium Chloride 260 ml @ 42 mls/hr UNSCH PRN IV 06/15/17 15:15 (Trandate Inj) 10 mg Q1HR PRN IV PUSH 06/15/17 16:00 Nicardipine HCl 25 mg/Sodium Chloride 250 ml @ 50 mls/hr TITRATE PRN IV 06/15/17 16:00 (Vasotec Inj) 1.25 mg Q6H PRN IV PUSH 06/15/17 16:00 (Apresoline Inj) 10 mg Q1HR PRN IV PUSH 06/15/17 16:00 Potassium Chloride 100 ml @ 100 mls/hr Q1H IV 06/15/17 17:00 06/15/17 19:59 06/15/17 17:48 (Lopressor Inj) 2.5 mg Q6H IV PUSH 06/15/17 17:00 06/15/17 16:51 Allergies Allergies Coded Allergies amoxicillin (Unverified Allergy, Mild, rash, 06/15/17) Exam I&O / VS 06/15/17 06/15/17 06/16/17 15:00 23:00 07:00 Intake Total 335 ml Output Total 900 ml Balance -565 ml Intake Oral 240 ml IV Total 95 ml Output Urine Total 900 ml # Bowel Movements 0 Vital Signs Date Time Temp Pulse Resp B/P (MAP) Pulse Ox O2 Delivery O2 Flow Rate FiO2 06/15/17 18:00 86 06/15/17 16:00 96 06/15/17 16:00 95.5 96 24 153/72 (99) 92 06/15/17 16:00 95.5 06/15/17 15:57 95 Non-Rebreather 15.00 06/15/17 15:30 98 25 136/85 (102) 95 06/15/17 15:30 98 06/15/17 12:04 93 Room Air 06/15/17 12:01 97.8 101 20 159/86 (110) 94 Objective Radiology Results Last 48 hours Impressions Neck CTA 06/15/17 1206 Signed Impressions: Service Date/Time: Thursday, June 15, 2017 12:28 - CONCLUSION: 1. Minimal focal plaque in the proximal right internal carotid arteries without flow-limiting stenosis. 2. Mild eccentric primarily calcified plaque in the proximal left internal carotid artery with resultant less than 40%% stenosis. 3. Codominant patent vertebral arteries. 4. Incidental note of moderate bilateral pleural effusions with diffuse groundglass opacities in the visualized lung apices consistent with pulmonary edema pattern. Crispin Boyce MD Head CTA 06/15/17 1206 Signed Impressions: Service Date/Time: Thursday, June 15, 2017 12:28 - CONCLUSION: 1. Presumed embolus to the left M2 segment with partial occlusion of the left MCA territory. 2. Results were called to Dr. Mckinley in the ED at the time of this dictation. Anjel Jauregui MD Head CT 06/15/17 1159 Signed Impressions: Service Date/Time: Thursday, June 15, 2017 12:28 - CONCLUSION: 1. No acute intracranial abnormalities. Casper Mason MD Chest X-Ray 06/15/17 1159 Signed Impressions: Service Date/Time: Thursday, June 15, 2017 12:17 - CONCLUSION: 1. Bilateral mostly basilar airspace disease. Cardiomegaly. Differential diagnosis includes infection and pulmonary edema. Casper Mason MD Cerebral Arteriogram 06/15/17 0000 Signed Impressions: Service Date/Time: Thursday, June 15, 2017 13:07 - CONCLUSION: Successful left MCA embolectomy as above. Anjel Jauregui MD Micro and Labs Laboratory Tests Test 06/15/17 12:05 06/15/17 12:49 White Blood Count 7.6 Red Blood Count 4.63 Hemoglobin 13.4 Bedside Hemoglobin 14.3 Hematocrit 40.4 Bedside Hematocrit 42.0 Mean Corpuscular Volume 87.2 Mean Corpuscular Hemoglobin 29.0 Mean Corpuscular Hemoglobin Concent 33.3 Red Cell Distribution Width 14.9 Platelet Count 326 Mean Platelet Volume 7.9 Neutrophils (%) (Auto) 72.8 Lymphocytes (%) (Auto) 16.1 Monocytes (%) (Auto) 9.6 Eosinophils (%) (Auto) 0.8 Basophils (%) (Auto) 0.7 Neutrophils # (Auto) 5.5 Lymphocytes # (Auto) 1.2 Monocytes # (Auto) 0.7 Eosinophils # (Auto) 0.1 Basophils # (Auto) 0.1 CBC Comment DIFF FINAL Differential Comment Prothrombin Time 10.9 Prothromb Time International Ratio 1.1 Activated Partial Thromboplast Time 23.8 Bedside Sodium 142 Blood Urea Nitrogen 21 Creatinine 0.55 Random Glucose 105 Total Protein 7.6 Albumin 3.9 Calcium Level 9.0 Alkaline Phosphatase 74 Aspartate Amino Transf (AST/SGOT) 27 Alanine Aminotransferase (ALT/SGPT) 35 Total Bilirubin 0.7 Sodium Level 141 Potassium Level 3.0 Chloride Level 107 Carbon Dioxide Level 21.7 Bedside Potassium 3.0 Bedside Chloride 109 Anion Gap 12 Bedside Blood Urea Nitrogen 21 Bedside Creatinine 0.4 Estimat Glomerular Filtration Rate 107 Bedside Glucose 104 Total Creatine Kinase 73 Troponin I LESS THAN 0.02 Urine Color YELLOW Urine Turbidity CLEAR Urine pH 5.5 Urine Specific [place] GREATER THAN 1.050 Urine Protein 30 Urine Glucose (UA) NEG Urine Ketones 40 Urine Occult Blood NEG Urine Nitrite NEG Urine Bilirubin NEG Urine Urobilinogen LESS THAN 2.0 Urine Leukocyte Esterase NEG Urine RBC 1 Urine WBC 1 Urine Bacteria RARE Urine Mucus FEW Microscopic Urinalysis Comment CATH-CULTURE IND Date/Time Source Procedure Growth Status 06/15/17 12:49 Urine Catheterized Urine Urine Culture Pending Received Modesto Dominguez MD Jun 15, 2017 18:37
[2017-06-15] MEDS: DOCUSATE SODIUM 50 MG/SENNA 8.6 MG TAB PO SCH (20:56)
[2017-06-15] MEDS: SODIUM CHLORIDE 0.9% FLUSH 10 ML FLUSH IV FLUSH SCH (20:56)
[2017-06-15] MEDS ORDERED: SODIUM CHLORIDE 0.9% FLUSH 10 ML FLUSH IV FLUSH SCH (21:00)
[2017-06-15] MEDS: TIMOLOL MALEATE 0.25% OPHT SOLN 5 ML BTL EACH EYE SCH (21:07)
[2017-06-15] MEDS: LATANOPROST 0.005% OPHT SOLN 2.5 ML BTL EACH EYE SCH (21:07)
[2017-06-15 22:00] LABS: MAGNESIUM 1.9 MG/DL (1.5-2.5)
[2017-06-15 22:02] LABS: TROPONIN I LESS THAN 0.02 NG/ML (0.02-0.05)
[2017-06-15] MEDS: CHLORHEXIDINE GLUCONATE 2 % 1 PACK (2 CLOTHS) TOP SCH (23:41)
[2017-06-16] VITALS (15 sets, daily range): BP systolic 138–163; BP diastolic 66–74; PULSE 80–110; RESP 17–33; TEMP 97.5–99; O2SAT 91–100
[2017-06-16] MEDS: SODIUM CHLOR 0.9% 1000 ML INJ 1,000 ML IV SCH ×3 (00:55→21:05)
[2017-06-16] MEDS: RESP: ALBUTEROL 2.5 MG/IPRATROPIUM 0.5 MG NEB (SCH) INH ×4 (03:37→20:52)
[2017-06-16 04:38] LABS: AUTOMATED NEUTROPHIL # 7.8 TH/MM3 (1.8-7.7); BASOPHIL # 0.1 TH/MM3 (0-0.2); BASOPHIL % 0.7 % (0.0-2.0); EOSINOPHIL % 0.5 % (0.0-4.0); HEMATOCRIT 37.9 % (35.0-46.0); HEMOGLOBIN 12.3 GM/DL (11.6-15.3); LYMPH % 10.3 % (9.0-44.0); MEAN CELL VOLUME 86.6 FL (80.0-100.0); MEAN CORPUSCULAR HEMOGLOBIN 28.2 PG (27.0-34.0); MEAN CORPUSCULAR HGB CONC 32.6 % (32.0-36.0); MEAN PLATELET VOLUME 7.9 FL (7.0-11.0); MONO % 8.5 % (0.0-8.0); MONOCYTE # 0.8 TH/MM3 (0-0.9); PLATELET COUNT 272 TH/MM3 (150-450); RED BLOOD COUNT 4.37 MIL/MM3 (4.00-5.30); RED CELL DISTRIBUTION WIDTH 15.1 % (11.6-17.2); WHITE BLOOD COUNT 9.8 TH/MM3 (4.0-11.0)
[2017-06-16] MEDS: METOPROLOL TARTRATE 5 MG/5 ML VIAL IV PUSH SCH ×4 (04:45→21:59)
--- NOTE | 2017-06-16 05:05 | RADRPT ---
EXAM DATE/TIME: 06/16/2017 04:23 [facility] COMPARISON: CTA BRAIN W 3D RECON, June 15, 2017, 12:28. THROMBECTOMY, INTRACRANIAL, June 15, 2017, 13:07. CT BRAIN W/O CONTRAST, June 15, 2017, 12:28. INDICATIONS : Follow up stroke. RADIATION DOSE: 56.35 CTDIvol (mGy) MEDICAL HISTORY : Hypertension. Thyroid disease SURGICAL HISTORY : None. ENCOUNTER: Subsequent ACUITY: 2 days PAIN SCALE: 0/10 LOCATION: cranial TECHNIQUE: Multiple contiguous axial images were obtained of the head. Using automated exposure control and adj ustment of the mA and/or kV according to patient size, radiation dose was kept as low as reasonably a chievable to obtain optimal diagnostic quality images. DICOM format image data is available electro nically for review and comparison. FINDINGS: CEREBRUM: The ventricles are normal for age. No evidence of midline shift, mass lesion, hemorrhage or acute in farction. No extra-axial fluid collections are seen. POSTERIOR FOSSA: The cerebellum and brainstem are intact. The 4th ventricle is midline. The cerebellopontine angle i s unremarkable. EXTRACRANIAL: The visualized portion of the orbits is intact. SKULL: The calvaria is intact. No evidence of skull fracture. CONCLUSION: 1. No evidence of acute intracranial pathology. No masses are identified. Porfirio Hollins MD on June 16, 2017 at 5:01 Board Certified Radiologist. This report was verified electronically.
[2017-06-16 05:09] LABS: ALBUMIN 3.5 GM/DL (3.4-5.0); ALKALINE PHOSPHATASE 72 U/L (45-117); ALT (GPT) 34 U/L (10-53); AST (GOT) 25 U/L (15-37); BICARBONATE 24.8 MEQ/L (21.0-32.0); BLOOD UREA NITROGEN 12 MG/DL (7-18); CALCIUM 7.8 MG/DL (8.5-10.1); CHLORIDE 109 MEQ/L (98-107); CHOLESTEROL 179 MG/DL (120-200); CHOLESTEROL/ HDL RATIO 1.96 RATIO; CREATININE 0.34 MG/DL (0.50-1.00); GLOMERULAR FILTRATION RATE 186 ML/MIN (>89); GLUCOSE,RANDOM 77 MG/DL (74-106); HDL CHOLESTEROL 91.1 MG/DL (40.0-60.0); LDL CHOLESTEROL 77 MG/DL (0-99); SODIUM (NA) 142 MEQ/L (136-145); TOTAL BILIRUBIN ADULT 0.6 MG/DL (0.2-1.0); TOTAL PROTEIN 7.2 GM/DL (6.4-8.2); TRIGLYCERIDES 53 MG/DL (42-150)
--- NOTE | 2017-06-16 06:29 | HHI.CCPN ---
Subjective Remarks/Hospital Course 81-year-old female. Date of admission 06/15/2017. Past medical history includes muscular dystrophy/genetic unknown type, glaucoma, hypothyroidism, hypertension dyslipidemia. She also uses chronic NSAIDs 4.. Patient presents to [place] ED the following history. Approximately 5 AM, patient acute onset of right-sided weakness she has baseline muscular dystrophy with decreased range of motion. She does use a walker to ambulate at baseline. Upon presentation patient to collect right-sided, right upper and lower extremity flaccidity. Normal strength/sensation left upper and lower extremity. Stroke alert was called. CT brain revealed no acute intracranial findings. CT angiogram of the brain revealed occlusion of the left M2 segment of the MCA. Patient is currently in IR for stent thrombosis retrieval. Currently on 2 L nasal cannula and hemodynamically stable. Subjective 06/16: Afebrile. Status post successful and lumpectomy as below. CT brain this a.m. revealed no acute intracranial findings. Neurologically much improved. Objective Vital Signs Date Time Temp Pulse Resp B/P (MAP) Pulse Ox O2 Delivery O2 Flow Rate FiO2 06/16/17 06:00 87 06/16/17 04:00 98.2 20 153/71 (98) 92 06/16/17 03:39 Nasal Cannula 06/15/17 23:53 7.00 Intake and Output 06/16/17 06/16/17 06/17/17 08:00 16:00 00:00 Intake Total 120 ml Output Total 1400 ml Balance -1280 ml Result Diagram: 06/16/17 0335 06/16/17 0335 Other Results Microbiology Date/Time Source Procedure Growth Status 06/15/17 12:49 Urine Catheterized Urine Urine Culture Pending Received Imaging Last Impressions Head CT 06/16/17 0600 Signed Impressions: Service Date/Time: June 04:23 - CONCLUSION: 1. No evidence of acute intracranial pathology. No masses are identified. Porfirio Hollins MD Neck CTA 06/15/17 1206 Signed Impressions: Service Date/Time: Thursday, June 15, 2017 12:28 - CONCLUSION: 1. Minimal focal plaque in the proximal right internal carotid arteries without flow-limiting stenosis. 2. Mild eccentric primarily calcified plaque in the proximal left internal carotid artery with resultant less than 40%% stenosis. 3. Codominant patent vertebral arteries. 4. Incidental note of moderate bilateral pleural effusions with diffuse groundglass opacities in the visualized lung apices consistent with pulmonary edema pattern. Crispin Boyce MD Head CTA 06/15/17 1206 Signed Impressions: Service Date/Time: Thursday, June 15, 2017 12:28 - CONCLUSION: 1. Presumed embolus to the left M2 segment with partial occlusion of the left MCA territory. 2. Results were called to Dr. Mckinley in the ED at the time of this dictation. Anjel Jauregui MD Chest X-Ray 06/15/17 1159 Signed Impressions: Service Date/Time: Thursday, June 15, 2017 12:17 - CONCLUSION: 1. Bilateral mostly basilar airspace disease. Cardiomegaly. Differential diagnosis includes infection and pulmonary edema. Casper Mason MD Cerebral Arteriogram 06/15/17 0000 Signed Impressions: Service Date/Time: Thursday, June 15, 2017 13:07 - CONCLUSION: Successful left MCA embolectomy as above. Anjel Jauregui MD Objective Remarks GENERAL: Awake, 81 year-old female who appears her stated age and is in no acute respiratory distress. SKIN: Focused skin assessment warm/dry. HEAD: Atraumatic. Normocephalic. EYES: Pupils equal and round. 3 mm bilateral. ENT: No nasal bleeding or discharge. Mucous membranes pink and moist. NECK: Trachea midline. No JVD. CARDIOVASCULAR: IRR. S1, S2 without murmur RESPIRATORY: No accessory muscle use. Clear to auscultation. Breath sounds equal bilaterally. GASTROINTESTINAL: Abdomen soft, non-tender, nondistended. No rebound tenderness. MUSCULOSKELETAL: No obvious deformities. No clubbing. No cyanosis. No edema. NEUROLOGICAL: Awake and alert. Facial droop as result. Strength is 5 bilateral upper and lower extremities. Right-sided neglect as result. No loss of sensation. Oriented to person place and time. 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 Jauregui Glaucoma History of muscle dystrophy CT brain 06/15 - no acute cranial findings CT brain 06/16 - no acute intracranial findings CTA brain - left M2 partial-occlusion MCA distribution CTA neck - Minimal focal plaque in the proximal right internal carotid arteries without flow-limiting stenosis. Mild eccentric primarily calcified plaque in the proximal left internal carotid artery with resultant less than 40 % stenosis. dominant patent vertebral arteries. Incidental note of moderate bilateral pleural effusions with diffuse groundglass opacities in the visualized lung apices consistent with pulmonary edema pattern. Continue timolol and latanoprost for glaucoma. Obtain home dosages pharmacy CV: Atrial fibrillation Hypertension Dyslipidemia - elevated HDL Treat keep systolic blood pressure less than 185, diastolic versus 110 Start anticoagulation with heparin drip today. Likely transition to NOAC next 48-72 hours long-term 2-D echocardiogram ordered. Results pending Lipid panel ordered for a.m. elevated HDL Colesevelam 625 mg 3 times a day currently on hold Amlodipine 10 mg by mouth daily currently on hold Currently on scheduled metoprolol 2.5 mg IV every 6 hours for rate control. Transition oral medication Resp: Nasal cannula for saturations greater than equal to 92%. Currently in stable mask at 8 L Incentive spirometry while awake Possible pulmonary edema on chest x-ray. Gently diurese. 40 mg torsemide IV 1 now GI: Regular diet Pantoprazole for GI prophylaxis Docusate sodium/senna 1 tablet twice a day for bowel regimen : Hills catheter for accurate I's and O's in a critically ill patient Endo: Hypothyroidism Sliding-scale insulin if indicated to maintain euglycemia Follow-up TSH slightly elevated at 4.3.. Start levothyroxine 25 g daily. Currently not on any medication according to Renal: Creatinine currently within normal limits Monitor urine output Accurate I's and O's Heme: CBC within normal limits. Recheck in a.m. ID: Monitor for infection UA results pending MSK: PT/OT evaluate and treat FEN: Hypokalemia Replace electrolytes per ICU electrolyte protocol Access - Utilize peripheral IV. Central line if indicated Prophylaxis - GI -pantoprazole - DVT - SCD/heparin drip Critical Care: Level II follow-up Germán Zamora MD Jun 16, 2017 06:29
[2017-06-16] MEDS ORDERED: HEPARIN-D5W 25,000 U/250 ML 250 ML IV PRN (06:30)
[2017-06-16] MEDS ORDERED: FUROSEMIDE 40 MG/4 ML VIAL IV PUSH ONE (06:45)
[2017-06-16] MEDS ORDERED: POTASSIUM CHLORIDE 10 MEQ CONTROLLED RELEASE TAB PO ONE (06:45)
[2017-06-16] MEDS: INSULIN ASPART SUPPLEMENTAL SCALE SQ SCH ×4 (07:55→21:00)
[2017-06-16] MEDS: TIMOLOL MALEATE 0.25% OPHT SOLN 5 ML BTL EACH EYE SCH ×2 (08:42→21:58)
[2017-06-16] MEDS: SODIUM CHLORIDE 0.9% FLUSH 10 ML FLUSH IV FLUSH SCH ×2 (08:42→21:58)
[2017-06-16] MEDS: ARTIFICIAL TEARS OPTH SOLN 15 ML BTL EACH EYE SCH ×3 (08:42→17:06)
[2017-06-16] MEDS: PANTOPRAZOLE SOD 40 MG DELAYED RELEASE TAB PO SCH (08:42)
[2017-06-16] MEDS: DOCUSATE SODIUM 50 MG/SENNA 8.6 MG TAB PO SCH ×2 (08:42→21:00)
[2017-06-16 09:20] LABS: HEMATOCRIT 37.2 % (35.0-46.0); HEMOGLOBIN 12.2 GM/DL (11.6-15.3); MEAN CELL VOLUME 86.4 FL (80.0-100.0); MEAN CORPUSCULAR HEMOGLOBIN 28.3 PG (27.0-34.0); MEAN CORPUSCULAR HGB CONC 32.8 % (32.0-36.0); PLATELET COUNT 258 TH/MM3 (150-450); RED BLOOD COUNT 4.31 MIL/MM3 (4.00-5.30)
[2017-06-16 09:28] LABS: INTERNATIONAL NORMALIZED RATIO 1.1 RATIO; PROTHROMBIN TIME - PATIENT 11.4 SEC (9.8-11.6)
[2017-06-16] MEDS ORDERED: INFLUENZA VIRUS VACCINE (QUADRIVALENT) 0.5 ML SYR IM ONE (10:00)
[2017-06-16 10:53] LABS: HEMOGLOBIN A1C 5.4 % (4.3-6.0)
--- NOTE | 2017-06-16 11:15 | RADRPT ---
EXAM DATE/TIME: 06/16/2017 10:31 [facility] COMPARISON: CT BRAIN W/O CONTRAST, June 16, 2017, 4:23. INDICATIONS : Right sided weakness that has resolved. MEDICAL HISTORY : Hypertension. Afib SURGICAL HISTORY : Hysterectomy. hip and knee replacement ENCOUNTER: Subsequent ACUITY: 2 day PAIN SCORE: 0/10 LOCATION: cranial TECHNIQUE: Multiplanar, multisequence MRI of the brain was performed without contrast. FINDINGS: CEREBRUM: Areas of high flair abnormality including the left basal ganglia which involves the left putamen and caudate nuclei. The ventricles are normal for age. No evidence of midline shift, mass lesion or hemo rrhage. No extraaxial fluid collections are seen. The pituitary gland and suprasellar cistern are n ormal in configuration. WHITE MATTER: Scattered foci of bright T2 signal abnormalities are seen in the white matter. POSTERIOR FOSSA: The cerebellum and brainstem are intact. The 4th ventricle is midline. The cerebellopontine angle is unremarkable. The cerebellar tonsils are normal in position. DIFFUSION IMAGING: There are focal areas of restricted diffusion in the left basal ganglia consistent with acute infarct ion. A few punctate areas of restricted diffusion along the high right parietal convexity. EXTRACRANIAL: The visualized portions of the orbits and paranasal sinuses are unremarkable. CONCLUSION: 1. Acute infarction in the left basal ganglia primarily involving the left putamen and caudate nuclei . 2. A few punctate areas of restricted diffusion in the high right parietal lobe could be tiny infarct s as well. 3. No midline shift or mass effect. Phi Thomas MD on June 16, 2017 at 11:06 Board Certified Radiologist. This report was verified electronically.
--- NOTE | 2017-06-16 11:17 | RADRPT ---
EXAM DATE/TIME: 06/16/2017 10:31 [facility] COMPARISON: MRI BRAIN W/O CONTRAST, June 16, 2017, 10:31. INDICATIONS : Right sided weakness that has resolved. MEDICAL HISTORY : Hypertension. Afib SURGICAL HISTORY : Hysterectomy. knee and hip replacement ENCOUNTER: Subsequent ACUITY: 2 day PAIN SCORE: 0/10 LOCATION: cranial Please note a normal MRA of the brain does not entirely exclude the possibility of a small aneurysm, nor the possibility of distal intracranial vessel disease. TECHNIQUE: 3D time of flight MRA was performed. Source images, multiplanar STS MIP, and 3D volume MIP reconstru ctions were reviewed. FINDINGS: There is excellent visualization of the major intracranial arteries out to the second-order branch ve ssels. There is no evidence for aneurysm, vessel truncation or stenosis, and no evidence for vascula r malformation in the middle or anterior cervical arteries. There is an area of focal moderate narrow ing in the right mid posterior cerebral artery. There are some scattered intraluminal irregularities suggesting atherosclerotic changes. Dominant left vertebral artery. Mild narrowing at the distal righ t vertebral artery. CONCLUSION: 1. Focal moderate narrowing within the right mid postsurgical artery. 2. Mild narrowing in the distal right vertebral artery. 3. No large vessel thrombosis. Phi Thomas MD on June 16, 2017 at 11:12 Board Certified Radiologist. This report was verified electronically.
--- NOTE | 2017-06-16 16:16 | ECHRPT ---
Indication: CVA/TIA CONCLUSIONS Normal left ventricular size. Mild concentric left ventricular hypertrophy. The left ventricular systolic function is normal with an estimated ejection fraction in the range of 60-65%. The left atrial size is mildly dilated. Mild mitral valve regurgitation. Mitral annular calcification is present. Moderate thickening of the mitral valve leaflets. Trace aortic valve regurgitation. There is severe tricuspid regurgitation. The estimated pulmonary arterial pressure is 52.8 mmHg. A moderate left sided pleural effusion is noted. BP: 153 / 71 HR: 84 Rhythm: MEASUREMENTS (Male / Female) Normal Values Technical Quality:Good 2D ECHO LV Diastolic Diameter PLAX 3.5 cm 4.2 - 5.9 / 3.9 - 5.3 cm LV Systolic Diameter PLAX 2.6 cm IVS Diastolic Thickness 1.4 cm 0.6 - 1.0 / 0.6 - 0.9 cm LVPW Diastolic Thickness 0.6 cm 0.6 - 1.0 / 0.6 - 0.9 cm LV Relative Wall Thickness 0.6 RV Internal Dim ED PLAX 2.3 cm LA Systolic Diameter LX 3.2 cm 3.0 - 4.0 / 2.7 - 3.8 cm M-MODE Aortic Root Diameter MM 2.6 cm AV Cusp Separation MM 1.8 cm DOPPLER MV Peak Velocity 165.0 cm/s MV Peak Gradient 10.9 mmHg MV Mean Velocity 102.0 cm/s MV Mean Gradient 5.0 mmHg MR Peak Velocity 429.0 cm/s MR Peak Gradient 73.6 mmHg Mitral E Point Velocity 128.0 cm/s Mitral A Point Velocity 40.7 cm/s Mitral E to A Ratio 3.1 TR Peak Velocity 327.0 cm/s TR Peak Gradient 42.8 mmHg Right Atrial Pressure 10.0 mmHg Pulmonary Artery Systolic Pressu 52.8 mmHg Right Ventricular Systolic Press 52.8 mmHg FINDINGS LEFT VENTRICLE Normal left ventricular size. Mild concentric left ventricular hypertrophy. The left ventricular systolic function is normal with an estimated ejection fraction in the range of 60-65%. RIGHT VENTRICLE Normal right ventricular size and systolic function. LEFT ATRIUM The left atrial size is mildly dilated. RIGHT ATRIUM The right atrial size is normal. ATRIAL SEPTUM Normal atrial septal thickness without atrial level shunting by limited color doppler interrogation. AORTA The aortic root and proximal ascending aorta are normal in size on limited imaging. MITRAL VALVE Mild mitral valve regurgitation. Mitral annular calcification is present. Moderate thickening of the mitral valve leaflets. AORTIC VALVE Trace aortic valve regurgitation. TRICUSPID VALVE There is severe tricuspid regurgitation. The estimated pulmonary arterial pressure is 52.8 mmHg. PULMONARY VALVE No pulmonary valve regurgitation or stenosis. VESSELS The inferior vena cava is normal in size. PERICARDIUM A moderate left sided pleural effusion is noted. Иван Benoit MD (Electronically Signed) Final Date:16 June 2017 16:15
--- NOTE | 2017-06-16 16:16 | EKG ---
Date Performed: 06/15/2017 Time Performed: 12:13:11 PTAGE: 81 years EKG: ATRIAL FIBRILLATION WITH RAPID VENTRICULAR RESPONSE MINIMAL ST DEPRESSION ABNORMAL RHYTHM E CG NO PREVIOUS TRACING DOCTOR: Magalys Alfaro Interpretating Date/Time 06/16/2017 16:13:58
[2017-06-16] MEDS ORDERED: POTASSIUM CHLORIDE 20 MEQ CONTROLLED RELEASE TAB PO ONE (18:00)
--- NOTE | 2017-06-16 18:18 | HHI.PR ---
Review/Management Daily Summary 06/15 seen half hour ago markedly improved no aphasia, no hemiparesis alert and oriented, no distress, no headaches at bedside discussed with dr Zamora keep heparin IV for 24-36 hrs the start bridging to coumadin or eliquis or similar 06/16 remains nearly intact bedside neuro exam mri results seen start oob activities tomorrow start bridging to po anticoagulant tomorrow i will be out of town and if needed call and one of my partners will assist Subjective Subjective Comments No acute events reported No headache No chest pain No dyspnea Active Medications Current Medications Medications (Trade) Dose Ordered Sig/Conor Route Start Time Stop Time Status Last Admin (NovoLOG SUPPLEMENTAL SCALE) 1 ACHS SQ 06/15/17 17:00 (D50w (Vial) Inj) 50 ml UNSCH PRN IV PUSH 06/15/17 13:00 (Glucagon Inj) 1 mg UNSCH PRN OTHER 06/15/17 13:00 Sodium Chloride 1,000 ml @ 84 mls/hr [id number] IV 06/15/17 13:00 06/16/17 08:43 (NS Flush) 2 ml UNSCH PRN IV FLUSH 06/15/17 13:15 (NS Flush) 2 ml BID IV FLUSH 06/15/17 21:00 06/16/17 08:42 (Tylenol) 650 mg Q6H PRN PO 06/15/17 13:15 ([place] 5-325 Mg) 1 tab Q4H PRN PO 06/15/17 13:15 (Morphine Inj) 2 mg Q2H PRN IV PUSH 06/15/17 13:45 (Protonix) 40 mg DAILY PO 06/16/17 09:00 06/16/17 08:42 (Tears Naturale Opth Soln) 1 drop TID EACH EYE 06/15/17 18:00 06/16/17 17:06 (Zofran Inj) 4 mg Q6H PRN IV PUSH 06/15/17 13:15 (Duoneb Neb) 1 ampule Q6HR NEB INH 06/15/17 16:00 06/16/17 18:01 (Albuterol Neb) 2.5 mg Q2HR NEB PRN INH 06/15/17 13:15 Miscellaneous Information 1 [id number] XX 06/15/17 13:15 (Chlorhexidine 2% Cloth) 3 pack Taper DAILY@04 TOP 06/16/17 04:00 06/12/18 03:59 (Chlorhexidine 2% Cloth) 3 pack UNSCH PRN TOP 06/15/17 13:15 (Hilda-Colace) 1 tab BID PO 06/15/17 21:00 (Milk Of Magnesia Liq) 30 ml Q12H PRN PO 06/15/17 13:15 (Senokot) 17.2 mg Q12H PRN PO 06/15/17 13:15 (Dulcolax Supp) 10 mg DAILY PRN RECTAL 06/15/17 13:15 (Lactulose Liq) 30 ml DAILY PRN PO 06/15/17 13:15 (Timoptic 0.25% Opth Soln) 1 drop Q12HR EACH EYE 06/15/17 21:00 06/16/17 08:42 (Xalatan 0.005% Opth Soln) 1 drop HS EACH EYE 06/15/17 21:00 06/15/17 21:07 Potassium Chloride 100 ml @ 50 mls/hr Q2H PRN IV 06/15/17 15:15 Potassium Chloride 100 ml @ 50 mls/hr Q2H PRN IV 06/15/17 15:15 (K-Lyte Cl Eff) 50 meq UNSCH PRN PO 06/15/17 15:15 Potassium Chloride 100 ml @ 25 mls/hr UNSCH PRN IV 06/15/17 15:15 Potassium Chloride 100 ml @ 50 mls/hr Q2H PRN IV 06/15/17 15:15 Magnesium Sulfate 4 gm/Sodium Chloride 100 ml @ 50 mls/hr UNSCH PRN IV 06/15/17 15:15 (Mag-Ox) 800 mg UNSCH PRN PO 06/15/17 15:15 Magnesium Sulfate 2 gm/Sodium Chloride 100 ml @ 50 mls/hr UNSCH PRN IV 06/15/17 15:15 (K-Phos) 2,000 mg Q4H PRN PO 06/15/17 15:15 Sodium Phosphate 30 mmol/Sodium Chloride 250 ml @ 42 mls/hr UNSCH PRN IV 06/15/17 15:15 (K-Phos) 2,000 mg UNSCH PRN PO/TUBE 06/15/17 15:15 Potassium Phosphate 30 mmol/ Sodium Chloride 260 ml @ 42 mls/hr UNSCH PRN IV 06/15/17 15:15 (Trandate Inj) 10 mg Q1HR PRN IV PUSH 06/15/17 16:00 Nicardipine HCl 25 mg/Sodium Chloride 250 ml @ 50 mls/hr TITRATE PRN IV 06/15/17 16:00 (Vasotec Inj) 1.25 mg Q6H PRN IV PUSH 06/15/17 16:00 (Apresoline Inj) 10 mg Q1HR PRN IV PUSH 06/15/17 16:00 (Lopressor Inj) 2.5 mg Q6H IV PUSH 06/15/17 17:00 06/16/17 17:06 Heparin Sodium/ Dextrose 250 ml @ 7 mls/hr TITRATE PRN IV 06/16/17 06:30 06/16/17 09:34 (Synthroid) 25 mcg DAILY@0600 PO 06/17/17 06:00 Allergies Allergies Coded Allergies amoxicillin (Unverified Allergy, Mild, rash, 06/15/17) Exam I&O / VS 06/16/17 06/16/17 06/17/17 15:00 23:00 07:00 Intake Total 1000 ml Balance 1000 ml IV Total 1000 ml Vital Signs Date Time Temp Pulse Resp B/P (MAP) Pulse Ox O2 Delivery O2 Flow Rate FiO2 06/16/17 18:00 89 06/16/17 16:00 97.5 84 17 138/66 (90) 100 06/16/17 16:00 89 06/16/17 14:34 96 Simple Mask 5.00 06/16/17 14:00 100 06/16/17 12:00 97.8 109 33 139/67 (91) 92 06/16/17 12:00 110 06/16/17 10:00 108 06/16/17 08:37 91 Simple Mask 10.00 06/16/17 08:00 98.7 98 25 163/74 (103) 95 06/16/17 08:00 80 06/16/17 07:00 95 Simple Mask 7.00 06/16/17 06:00 87 06/16/17 04:00 98.2 84 20 153/71 (98) 92 06/16/17 04:00 84 06/16/17 03:39 95 Nasal Cannula 06/16/17 02:00 82 06/16/17 00:00 92 06/16/17 00:00 99.0 92 20 146/68 (94) 93 06/15/17 23:53 95 Simple Mask 7.00 06/15/17 22:00 99 06/15/17 21:13 95 Simple Mask 10.00 06/15/17 20:00 98.6 95 21 157/67 (97) 99 06/15/17 20:00 99 Partial Non-Rebreather 06/15/17 20:00 95 06/15/17 19:49 97 Partial Rebreather 10.00 Objective Radiology Results Last [address] 06/16/17 0600 Signed Impressions: Service Date/Time: June 04:23 - CONCLUSION: 1. No evidence of acute intracranial pathology. No masses are identified. Porfirio Hollins MD Head Magnetic Resonance Angiography 06/16/17 0000 Signed Impressions: Service Date/Time: June 10:31 - CONCLUSION: 1. Focal moderate narrowing within the right mid postsurgical artery. 2. Mild narrowing in the distal right vertebral artery. 3. No large vessel thrombosis. Phi Thomas MD Brain MRI 06/16/17 0000 Signed Impressions: Service Date/Time: June 10:31 - CONCLUSION: 1. Acute infarction in the left basal ganglia primarily involving the left putamen and caudate nuclei. 2. A few punctate areas of restricted diffusion in the high right parietal lobe could be tiny infarcts as well. 3. No midline shift or mass effect. Phi Thomas MD Neck CTA 06/15/17 1206 Signed Impressions: Service Date/Time: Thursday, June 15, 2017 12:28 - CONCLUSION: 1. Minimal focal plaque in the proximal right internal carotid arteries without flow-limiting stenosis. 2. Mild eccentric primarily calcified plaque in the proximal left internal carotid artery with resultant less than 40%% stenosis. 3. Codominant patent vertebral arteries. 4. Incidental note of moderate bilateral pleural effusions with diffuse groundglass opacities in the visualized lung apices consistent with pulmonary edema pattern. Crispin Boyce MD Head CTA 06/15/17 1206 Signed Impressions: Service Date/Time: Thursday, June 15, 2017 12:28 - CONCLUSION: 1. Presumed embolus to the left M2 segment with partial occlusion of the left MCA territory. 2. Results were called to Dr. Mckinley in the ED at the time of this dictation. Anjel Jauregui MD Head CT 06/15/17 1159 Signed Impressions: Service Date/Time: Thursday, June 15, 2017 12:28 - CONCLUSION: 1. No acute intracranial abnormalities. Casper Mason MD Chest X-Ray 06/15/17 1159 Signed Impressions: Service Date/Time: Thursday, June 15, 2017 12:17 - CONCLUSION: 1. Bilateral mostly basilar airspace disease. Cardiomegaly. Differential diagnosis includes infection and pulmonary edema. Casper Mason MD Cerebral Arteriogram 06/15/17 0000 Signed Impressions: Service Date/Time: Thursday, June 15, 2017 13:07 - CONCLUSION: Successful left MCA embolectomy as above. Anjel Jauregui MD Micro and Labs Laboratory Tests Test 06/15/17 21:09 06/16/17 03:35 06/16/17 08:30 06/16/17 16:25 Phosphorus Level 3.0 3.0 Magnesium Level 1.9 2.0 Troponin I LESS THAN 0.02 White Blood Count 9.8 10.0 Red Blood Count 4.37 4.31 Hemoglobin 12.3 12.2 Hematocrit 37.9 37.2 Mean Corpuscular Volume 86.6 86.4 Mean Corpuscular Hemoglobin 28.2 28.3 Mean Corpuscular Hemoglobin Concent 32.6 32.8 Red Cell Distribution Width 15.1 15.0 Platelet Count 272 258 Mean Platelet Volume 7.9 8.0 Neutrophils (%) (Auto) 80.0 Lymphocytes (%) (Auto) 10.3 Monocytes (%) (Auto) 8.5 Eosinophils (%) (Auto) 0.5 Basophils (%) (Auto) 0.7 Neutrophils # (Auto) 7.8 Lymphocytes # (Auto) 1.0 Monocytes # (Auto) 0.8 Eosinophils # (Auto) 0.0 Basophils # (Auto) 0.1 CBC Comment DIFF FINAL Differential Comment Blood Urea Nitrogen 12 Creatinine 0.34 Random Glucose 77 Total Protein 7.2 Albumin 3.5 Calcium Level 7.8 Alkaline Phosphatase 72 Aspartate Amino Transf (AST/SGOT) 25 Alanine Aminotransferase (ALT/SGPT) 34 Total Bilirubin 0.6 Sodium Level 142 Potassium Level 3.7 Chloride Level 109 Carbon Dioxide Level 24.8 Anion Gap 8 Estimat Glomerular Filtration Rate 186 Hemoglobin A1c 5.4 Triglycerides Level 53 Cholesterol Level 179 LDL Cholesterol 77 HDL Cholesterol 91.1 Cholesterol/HDL Ratio 1.96 Thyroid Stimulating Hormone 3rd Gen 4.270 Prothrombin Time 11.4 Prothromb Time International Ratio 1.1 Activated Partial Thromboplast Time 22.2 33.4 Date/Time Source Procedure Growth Status 06/15/17 12:49 Urine Catheterized Urine Urine Culture - Preliminary NO GROWTH IN 24 HOURS. Resulted Modesto Dominguez MD Jun 16, 2017 18:18
[2017-06-16] MEDS: LATANOPROST 0.005% OPHT SOLN 2.5 ML BTL EACH EYE SCH (21:58)
[2017-06-17] VITALS (10 sets, daily range): BP systolic 134–150; BP diastolic 68–98; PULSE 79–112; RESP 18–30; TEMP 97.7–98.2; O2SAT 93–100
[2017-06-17] MEDS: RESP: ALBUTEROL 2.5 MG/IPRATROPIUM 0.5 MG NEB (SCH) INH ×4 (03:05→21:00)
[2017-06-17] MEDS: CHLORHEXIDINE GLUCONATE 2 % 1 PACK (2 CLOTHS) TOP SCH (03:08)
[2017-06-17] MEDS: METOPROLOL TARTRATE 5 MG/5 ML VIAL IV PUSH SCH (04:16)
--- NOTE | 2017-06-17 05:26 | RADRPT ---
EXAM DATE/TIME: 06/17/2017 03:46 [facility] COMPARISON: CHEST SINGLE AP, June 15, 2017, 12:17. INDICATIONS : Pulmonary edema. MEDICAL HISTORY : Hypertension. Afib SURGICAL HISTORY : Hysterectomy. knee and hip replacement ENCOUNTER: Subsequent ACUITY: 3 days PAIN SCORE: 0/10 LOCATION: Bilateral chest FINDINGS: Compared to the prior exam there has been some improvement with the bilateral pulmonary edema. The he art size is stable. No other significant changes are demonstrated. CONCLUSION: Improving bilateral pulmonary edema. Jeremy Chowdhury MD on June 17, 2017 at 5:23 Board Certified Radiologist. This report was verified electronically.
[2017-06-17 06:13] LABS: HEMATOCRIT 35.4 % (35.0-46.0); HEMOGLOBIN 11.7 GM/DL (11.6-15.3); MEAN CELL VOLUME 85.8 FL (80.0-100.0); MEAN CORPUSCULAR HEMOGLOBIN 28.3 PG (27.0-34.0); MEAN CORPUSCULAR HGB CONC 32.9 % (32.0-36.0); MEAN PLATELET VOLUME 7.5 FL (7.0-11.0); PLATELET COUNT 231 TH/MM3 (150-450); RED BLOOD COUNT 4.13 MIL/MM3 (4.00-5.30); RED CELL DISTRIBUTION WIDTH 14.6 % (11.6-17.2); WHITE BLOOD COUNT 7.3 TH/MM3 (4.0-11.0)
[2017-06-17 06:35] LABS: BICARBONATE 27.4 MEQ/L (21.0-32.0); CALCIUM 7.7 MG/DL (8.5-10.1); CREATININE 0.37 MG/DL (0.50-1.00); MAGNESIUM 1.9 MG/DL (1.5-2.5)
[2017-06-17] MEDS: LEVOTHYROXINE SODIUM 25 MCG TAB PO SCH (07:15)
[2017-06-17] MEDS: INSULIN ASPART SUPPLEMENTAL SCALE SQ SCH ×4 (08:00→21:00)
[2017-06-17] MEDS ORDERED: FUROSEMIDE 40 MG/4 ML VIAL IV PUSH ONE (08:15)
[2017-06-17] MEDS ORDERED: METOPROLOL TARTRATE 25 MG TAB PO SCH (08:15)
[2017-06-17] MEDS ORDERED: PILL SPLITTER OTHER PRN (08:30)
--- NOTE | 2017-06-17 08:35 | HHI.CCPN ---
Subjective Remarks/Hospital Course 81-year-old female. Date of admission 06/15/2017. Past medical history includes muscular dystrophy/genetic unknown type, glaucoma, hypothyroidism, hypertension dyslipidemia. She also uses chronic NSAIDs 4.. Patient presents to [facility] ED the following history. Approximately 5 AM, patient acute onset of right-sided weakness she has baseline muscular dystrophy with decreased range of motion. She does use a walker to ambulate at baseline. Upon presentation patient to collect right-sided, right upper and lower extremity flaccidity. Normal strength/sensation left upper and lower extremity. Stroke alert was called. CT brain revealed no acute intracranial findings. CT angiogram of the brain revealed occlusion of the left M2 segment of the MCA. Patient is currently in IR for stent thrombosis retrieval. Currently on 2 L nasal cannula and hemodynamically stable. 06/16: Afebrile. Status post successful and lumpectomy as below. CT brain this a.m. revealed no acute intracranial findings. Neurologically much improved. Subjective 06/17: Afebrile. MRI of the brain revealed left basal ganglia CVA. Patient neurologically with excellent recovery. We'll switch to Apixaban from heparin drip today 5 mg twice a day. No bowel movement Objective Vital Signs Date Time Temp Pulse Resp B/P (MAP) Pulse Ox O2 Delivery O2 Flow Rate FiO2 06/17/17 06:00 82 06/17/17 04:00 98.2 19 147/98 (114) 97 06/16/17 20:53 Nasal Cannula 6.00 Intake and Output 06/17/17 06/17/17 06/18/17 08:00 16:00 00:00 Intake Total 914 ml Output Total 300 ml Balance 614 ml Result Diagram: 06/17/17 0550 06/17/17 0550 Other Results Microbiology Date/Time Source Procedure Growth Status 06/15/17 12:49 Urine Catheterized Urine Urine Culture - Preliminary NO GROWTH IN 24 HOURS. Resulted Imaging Last Impressions Chest X-Ray 06/17/17599 Signed Impressions: Service Date/Time: Saturday, June 17, 2017 03:46 - CONCLUSION: Improving bilateral pulmonary edema. Jeremy Chowdhury MD Head CT 06/16/17 06 Signed Impressions: Service Date/Time: June 04:23 - CONCLUSION: 1. No evidence of acute intracranial pathology. No masses are identified. Porfirio Hollins MD Head Magnetic Resonance Angiography 06/16/17 0000 Signed Impressions: Service Date/Time: June 10:31 - CONCLUSION: 1. Focal moderate narrowing within the right mid postsurgical artery. 2. Mild narrowing in the distal right vertebral artery. 3. No large vessel thrombosis. Phi Thomas MD Brain MRI 06/16/17 0000 Signed Impressions: Service Date/Time: June 10:31 - CONCLUSION: 1. Acute infarction in the left basal ganglia primarily involving the left putamen and caudate nuclei. 2. A few punctate areas of restricted diffusion in the high right parietal lobe could be tiny infarcts as well. 3. No midline shift or mass effect. Phi Thomas MD Neck CTA 06/15/17 1206 Signed Impressions: Service Date/Time: Thursday, June 15, 2017 12:28 - CONCLUSION: 1. Minimal focal plaque in the proximal right internal carotid arteries without flow-limiting stenosis. 2. Mild eccentric primarily calcified plaque in the proximal left internal carotid artery with resultant less than 40%% stenosis. 3. Codominant patent vertebral arteries. 4. Incidental note of moderate bilateral pleural effusions with diffuse groundglass opacities in the visualized lung apices consistent with pulmonary edema pattern. Crispin Boyce MD Head CTA 06/15/17 1206 Signed Impressions: Service Date/Time: Thursday, June 15, 2017 12:28 - CONCLUSION: 1. Presumed embolus to the left M2 segment with partial occlusion of the left MCA territory. 2. Results were called to Dr. Mckinley in the ED at the time of this dictation. Anjel Jauregui MD Cerebral Arteriogram 06/15/17 0000 Signed Impressions: Service Date/Time: Thursday, June 15, 2017 13:07 - CONCLUSION: Successful left MCA embolectomy as above. Anjel Jauregui MD Objective Remarks GENERAL: Awake, 81 year-old female who appears her stated age and is in no acute respiratory distress. SKIN: Focused skin assessment warm/dry. HEAD: Atraumatic. Normocephalic. EYES: Pupils equal and round. 3 mm bilateral. ENT: No nasal bleeding or discharge. Mucous membranes pink and moist. NECK: Trachea midline. No JVD. CARDIOVASCULAR: IRR. S1, S2 without murmur RESPIRATORY: No accessory muscle use. Clear to auscultation. Breath sounds equal bilaterally. GASTROINTESTINAL: Abdomen soft, non-tender, nondistended. No rebound tenderness. MUSCULOSKELETAL: No obvious deformities. No clubbing. No cyanosis. No edema. NEUROLOGICAL: Awake and alert. Facial droop has resolved. Strength is 4+/5 bilateral upper and lower extremities. No loss of sensation. Oriented to person place and time. 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 Jauregui Glaucoma History of muscle dystrophy MRI brain 06/16 revealed left basal ganglia - putamen and caudate nucleus and possible right parietal embolic CVA MRA brain 06/16 revealed right [employer] narrowing along with focal stenosis of the right vertebral artery. CT brain - no acute cranial findings CTA brain - left M2 partial-occlusion MCA distribution CTA neck - Minimal focal plaque in the proximal right internal carotid arteries without flow-limiting stenosis. Mild eccentric primarily calcified plaque in the proximal left internal carotid artery with resultant less than 40 % stenosis. Codominant patent vertebral arteries. Incidental note of moderate bilateral pleural effusions with diffuse groundglass opacities in the visualized lung apices consistent with pulmonary edema pattern. Continue timolol and latanoprost for glaucoma PT/OT/ST evaluate and treat CV: Hypertension Dyslipidemia Severe TR Atrial fibrillation 2-D echocardiogram revealed EF 60-65%. LVH. Severe TR. PAP 53 mmHg Colesevelam 625 mg 3 times a day will be resumed Amlodipine 10 mg by mouth daily currently on hold Metoprolol 25 mg 3 times a day rate control Resp: Nasal cannula for saturations greater than equal to 92% Incentive spirometry while awake Possible pulmonary edema on chest x-rayleft pleural effusion has improved on today's x-ray. Gently diurese with furosemide 40 mg IV daily GI: Advance diet as tolerated Pantoprazole for GI prophylaxis Docusate sodium/senna 1 tablet twice a day for bowel regimen : Hills catheter for accurate I's and O's in a critically ill patient receiving furosemide Endo: Hypothyroidism Sliding-scale insulin if indicated to maintain euglycemia Follow-up TSH 4.27. Started on levothyroxine 25 mcg daily. Follow TSH in 4-6 weeks. Renal: Creatinine currently within normal limits Monitor urine output Accurate I's and O's Heme: CBC within normal limits. Recheck in a.m. ID: Monitor for infection UA results negative MSK: PT/OT evaluate and treat FEN: Hypokalemia Replace electrolytes per ICU electrolyte protocol Potassium chloride 40 mEq twice a day today 06/17. Recheck in a.m. Access - Utilize peripheral IV. Central line if indicated Prophylaxis - GI -pantoprazole - DVT - SCD/heparin drip - Apixaban 5 mg twice a day Level II followup. Patient is stable from a critical care medicine standpoint. Assign care to hospitalist in a.m. 06/18. Transfer from ICU. Germán Zamora MD Jun 17, 2017 08:35
[2017-06-17] MEDS: PANTOPRAZOLE SOD 40 MG DELAYED RELEASE TAB PO SCH (08:52)
[2017-06-17] MEDS: POTASSIUM CHLORIDE 20 MEQ CONTROLLED RELEASE TAB PO SCH ×2 (08:52→22:08)
[2017-06-17] MEDS: DOCUSATE SODIUM 50 MG/SENNA 8.6 MG TAB PO SCH ×2 (08:52→22:08)
[2017-06-17] MEDS: POLYETHYLENE GLYCOL 17 GM PKG PO SCH (08:52)
[2017-06-17] MEDS: SODIUM CHLORIDE 0.9% FLUSH 10 ML FLUSH IV FLUSH SCH ×2 (08:53→22:08)
[2017-06-17] MEDS: TIMOLOL MALEATE 0.25% OPHT SOLN 5 ML BTL EACH EYE SCH ×2 (08:53→22:07)
[2017-06-17] MEDS: ARTIFICIAL TEARS OPTH SOLN 15 ML BTL EACH EYE SCH ×3 (08:55→18:00)
[2017-06-17] MEDS ORDERED: MAGNESIUM SULFATE 1 GM PREMIX 100 ML IV ONE (09:00)
[2017-06-17] MEDS: APIXABAN 5 MG TABLET PO SCH ×2 (09:33→22:08)
[2017-06-17] MEDS: COLESEVELAM HCL 625 MG TAB PO SCH ×2 (09:55→22:00)
[2017-06-17] MEDS: METOPROLOL TARTRATE 25 MG TAB PO SCH ×2 (14:08→22:08)
[2017-06-17] MEDS: LATANOPROST 0.005% OPHT SOLN 2.5 ML BTL EACH EYE SCH (22:07)
[2017-06-18] VITALS (8 sets, daily range): BP systolic 130–163; BP diastolic 67–102; PULSE 18–105; RESP 18–21; TEMP 97.6–98.3; O2SAT 92–100
[2017-06-18] MEDS: CHLORHEXIDINE GLUCONATE 2 % 1 PACK (2 CLOTHS) TOP SCH (03:16)
[2017-06-18] MEDS: RESP: ALBUTEROL 2.5 MG/IPRATROPIUM 0.5 MG NEB (SCH) INH ×4 (03:28→20:00)
[2017-06-18] MEDS: METOPROLOL TARTRATE 25 MG TAB PO SCH ×3 (05:34→21:56)
[2017-06-18] MEDS: LEVOTHYROXINE SODIUM 25 MCG TAB PO SCH (05:34)
[2017-06-18 06:07] LABS: HEMATOCRIT 35.9 % (35.0-46.0); HEMOGLOBIN 12.1 GM/DL (11.6-15.3); MEAN CELL VOLUME 86.4 FL (80.0-100.0); MEAN CORPUSCULAR HGB CONC 33.5 % (32.0-36.0); MEAN PLATELET VOLUME 7.9 FL (7.0-11.0); PLATELET COUNT 241 TH/MM3 (150-450); RED BLOOD COUNT 4.16 MIL/MM3 (4.00-5.30); RED CELL DISTRIBUTION WIDTH 15.2 % (11.6-17.2)
[2017-06-18 06:30] LABS: BICARBONATE 29.1 MEQ/L (21.0-32.0); CALCIUM 8.2 MG/DL (8.5-10.1); CREATININE 0.38 MG/DL (0.50-1.00); MAGNESIUM 2.1 MG/DL (1.5-2.5); PHOSPHORUS 3.8 MG/DL (2.5-4.9)
[2017-06-18] MEDS: INSULIN ASPART SUPPLEMENTAL SCALE SQ SCH ×2 (08:00→12:00)
[2017-06-18] MEDS: SODIUM CHLORIDE 0.9% FLUSH 10 ML FLUSH IV FLUSH SCH ×2 (09:00→22:49)
[2017-06-18] MEDS: ARTIFICIAL TEARS OPTH SOLN 15 ML BTL EACH EYE SCH ×3 (09:00→18:00)
[2017-06-18] MEDS: POLYETHYLENE GLYCOL 17 GM PKG PO SCH (09:21)
[2017-06-18] MEDS: DOCUSATE SODIUM 50 MG/SENNA 8.6 MG TAB PO SCH ×2 (09:21→21:00)
[2017-06-18] MEDS: APIXABAN 5 MG TABLET PO SCH ×2 (09:21→21:56)
[2017-06-18] MEDS: PANTOPRAZOLE SOD 40 MG DELAYED RELEASE TAB PO SCH (09:21)
[2017-06-18] MEDS: COLESEVELAM HCL 625 MG TAB PO SCH ×2 (09:21→22:13)
[2017-06-18] MEDS: TIMOLOL MALEATE 0.25% OPHT SOLN 5 ML BTL EACH EYE SCH ×2 (09:22→22:21)
--- NOTE | 2017-06-18 10:00 | HHI.CCPN ---
Subjective Remarks/Hospital Course 81-year-old female. Date of admission 06/15/2017. Past medical history includes muscular dystrophy/genetic unknown type, glaucoma, hypothyroidism, hypertension dyslipidemia. She also uses chronic NSAIDs 4.. Patient presents to [facility] ED the following history. Approximately 5 AM, patient acute onset of right-sided weakness she has baseline muscular dystrophy with decreased range of motion. She does use a walker to ambulate at baseline. Upon presentation patient to collect right-sided, right upper and lower extremity flaccidity. Normal strength/sensation left upper and lower extremity. Stroke alert was called. CT brain revealed no acute intracranial findings. CT angiogram of the brain revealed occlusion of the left M2 segment of the MCA. Patient is currently in IR for stent thrombosis retrieval. Currently on 2 L nasal cannula and hemodynamically stable. 06/16: Afebrile. Status post successful and lumpectomy as below. CT brain this a.m. revealed no acute intracranial findings. Neurologically much improved. Subjective 06/17: Afebrile. MRI of the brain revealed left basal ganglia CVA. Patient neurologically with excellent recovery. We'll switch to Apixaban from heparin drip today 5 mg twice a day. No bowel movement. 06/18: Stable respiratory and hemodynamics.Awaiting transfer. Objective Vital Signs Date Time Temp Pulse Resp B/P (MAP) Pulse Ox O2 Delivery O2 Flow Rate FiO2 06/18/17 08:39 95 Nasal Cannula 5.00 06/18/17 08:00 100 06/18/17 08:00 98.0 21 135/86 (102) Intake and Output 06/18/17 06/18/17 06/19/17 08:00 16:00 00:00 Intake Total 200 ml Output Total 300 ml Balance -100 ml Result Diagram: 06/18/17 0513 06/18/17 0512 Other Results Microbiology Date/Time Source Procedure Growth Status 06/15/17 12:49 Urine Catheterized Urine Urine Culture - Final NO GROWTH IN 48 HOURS. Complete Imaging Last Impressions Chest X-Ray 06/17/17 0600 Signed Impressions: Service Date/Time: Saturday, June 17, 2017 03:46 - CONCLUSION: Improving bilateral pulmonary edema. Jeremy Chowdhury MD Head CT 06/16/17 0600 Signed Impressions: Service Date/Time: June 04:23 - CONCLUSION: 1. No evidence of acute intracranial pathology. No masses are identified. Porfirio Hollins MD Head Magnetic Resonance Angiography 06/16/17 0000 Signed Impressions: Service Date/Time: June 10:31 - CONCLUSION: 1. Focal moderate narrowing within the right mid postsurgical artery. 2. Mild narrowing in the distal right vertebral artery. 3. No large vessel thrombosis. Phi Thomas MD Brain MRI 06/16/17 0000 Signed Impressions: Service Date/Time: June 10:31 - CONCLUSION: 1. Acute infarction in the left basal ganglia primarily involving the left putamen and caudate nuclei. 2. A few punctate areas of restricted diffusion in the high right parietal lobe could be tiny infarcts as well. 3. No midline shift or mass effect. Phi Thomas MD Neck CTA 06/15/17 1206 Signed Impressions: Service Date/Time: Thursday, June 15, 2017 12:28 - CONCLUSION: 1. Minimal focal plaque in the proximal right internal carotid arteries without flow-limiting stenosis. 2. Mild eccentric primarily calcified plaque in the proximal left internal carotid artery with resultant less than 40%% stenosis. 3. Codominant patent vertebral arteries. 4. Incidental note of moderate bilateral pleural effusions with diffuse groundglass opacities in the visualized lung apices consistent with pulmonary edema pattern. Crispin Boyce MD Head CTA 06/15/17 1206 Signed Impressions: Service Date/Time: Thursday, June 15, 2017 12:28 - CONCLUSION: 1. Presumed embolus to the left M2 segment with partial occlusion of the left MCA territory. 2. Results were called to Dr. Mckinley in the ED at the time of this dictation. Anjel Jauregui MD Cerebral Arteriogram 06/15/17 0000 Signed Impressions: Service Date/Time: Thursday, June 15, 2017 13:07 - CONCLUSION: Successful left MCA embolectomy as above. Anjel Jauregui MD Objective Remarks GENERAL: Awake, 81 year-old female who appears her stated age and is in no acute respiratory distress. SKIN: Focused skin assessment warm/dry. HEAD: Atraumatic. Normocephalic. EYES: Pupils equal and round. 3 mm bilateral. ENT: No nasal bleeding or discharge. Mucous membranes pink and moist. NECK: Trachea midline. Airway widely patent. CARDIOVASCULAR: IRR. S1, S2 without murmur. No JVD. RESPIRATORY: No accessory muscle use. Clear to auscultation. Breath sounds equal bilaterally. GASTROINTESTINAL: Abdomen soft, non-tender, nondistended. No guarding. MUSCULOSKELETAL: No obvious deformities. No clubbing. No cyanosis. No edema. NEUROLOGICAL: Awake and alert. Strength is 4+/5 bilateral upper and lower extremities. No loss of sensation. Oriented X 3. 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 Jauregui Glaucoma History of muscle dystrophy MRI brain 06/16 revealed left basal ganglia - putamen and caudate nucleus and possible right parietal embolic CVA MRA brain 06/16 revealed right [employer] RULES ANALYST narrowing along with focal stenosis of the right vertebral artery. CT brain - no acute cranial findings CTA brain - left M2 partial-occlusion MCA distribution CTA neck - Minimal focal plaque in the proximal right internal carotid arteries without flow-limiting stenosis. Mild eccentric primarily calcified plaque in the proximal left internal carotid artery with resultant less than 40 % stenosis. Codominant patent vertebral arteries. Incidental note of moderate bilateral pleural effusions with diffuse groundglass opacities in the visualized lung apices consistent with pulmonary edema pattern. Continue timolol and latanoprost for glaucoma PT/OT/ST evaluate and treat CV: Hypertension Dyslipidemia Severe TR Atrial fibrillation 2-D echocardiogram revealed EF 60-65%. LVH. Severe TR. PAP 53 mmHg Colesevelam 625 mg 3 times a day will be resumed Amlodipine 10 mg by mouth daily currently on hold Metoprolol 25 mg 3 times a day rate control Resp: Nasal cannula for saturations greater than equal to 92% Incentive spirometry while awake Possible pulmonary edema on chest x-ray left pleural effusion has improved Gently diurese with furosemide 40 mg IV daily GI: Advance diet as tolerated Pantoprazole for GI prophylaxis Docusate sodium/senna 1 tablet twice a day for bowel regimen : Hills catheter for accurate I's and O's in a critically ill patient receiving furosemide Endo: Hypothyroidism Sliding-scale insulin if indicated to maintain euglycemia Follow-up TSH 4.27. Started on levothyroxine 25 mcg daily. Follow TSH in 4-6 weeks. Renal: Creatinine currently within normal limits Monitor urine output Accurate I's and O's Heme: CBC within normal limits. Recheck in a.m. ID: Monitor for infection UA results negative MSK: PT/OT evaluate and treat FEN: Hypokalemia Replace electrolytes per ICU electrolyte protocol Potassium chloride 40 mEq twice a day today 06/17. Access - Utilize peripheral IV. Central line if indicated Prophylaxis - GI -pantoprazole - DVT - SCD/heparin drip - Apixaban 5 mg twice a day Patient is stable from a critical care medicine standpoint. Assign care to hospitalist in a.m. 06/18. Transfer from ICU when bed available. Bronson Lee MD Jun 18, 2017 10:00
[2017-06-18] MEDS: LATANOPROST 0.005% OPHT SOLN 2.5 ML BTL EACH EYE SCH (22:49)
[2017-06-19] VITALS: BP 143/72; PULSE 83; PULSE 97; RESP 18; TEMP 97.5; O2SAT 96
[2017-06-19 04:00] VITALS: BP 140/74; PULSE 73; PULSE 87; RESP 18; TEMP 97.8; O2SAT 95
[2017-06-19] MEDS: CHLORHEXIDINE GLUCONATE 2 % 1 PACK (2 CLOTHS) TOP SCH (04:00)
[2017-06-19] MEDS: RESP: ALBUTEROL 2.5 MG/IPRATROPIUM 0.5 MG NEB (SCH) INH ×3 (04:14→16:00)
[2017-06-19] MEDS: LEVOTHYROXINE SODIUM 25 MCG TAB PO SCH (05:31)
[2017-06-19] MEDS: METOPROLOL TARTRATE 25 MG TAB PO SCH ×2 (05:31→15:19)
[2017-06-19 08:00] VITALS: BP 144/76; PULSE 91; RESP 16; TEMP 97.8; O2SAT 97
[2017-06-19] MEDS: POLYETHYLENE GLYCOL 17 GM PKG PO SCH (09:00)
[2017-06-19] MEDS: SODIUM CHLORIDE 0.9% FLUSH 10 ML FLUSH IV FLUSH SCH (09:00)
[2017-06-19] MEDS: DOCUSATE SODIUM 50 MG/SENNA 8.6 MG TAB PO SCH (09:57)
[2017-06-19] MEDS: APIXABAN 5 MG TABLET PO SCH (09:57)
[2017-06-19] MEDS: PANTOPRAZOLE SOD 40 MG DELAYED RELEASE TAB PO SCH (09:57)
[2017-06-19] MEDS: TIMOLOL MALEATE 0.25% OPHT SOLN 5 ML BTL EACH EYE SCH (09:58)
[2017-06-19] MEDS: ARTIFICIAL TEARS OPTH SOLN 15 ML BTL EACH EYE SCH ×2 (09:59→13:00)
[2017-06-19 10:00] VITALS: O2SAT 93
--- NOTE | 2017-06-19 10:23 | HHI.PR ---
Subjective Remarks Consulted by critical care medicine for transfer of care and medical management. Chart reviewed. Case discussed with RN. Patient denies any headache or dizziness. She wants to be discharged. Discussed with case management, referred to [facility]. PT recommends inpatient rehabilitation. Objective Vitals Vital Signs Date Time Temp Pulse Resp B/P (MAP) Pulse Ox O2 Delivery O2 Flow Rate FiO2 06/19/17 10:00 93 Nasal Cannula 4.00 06/19/17 04:00 73 06/19/17 04:00 97.8 87 18 140/74 (96) 95 06/19/17 00:00 83 06/19/17 00:00 97.5 97 18 143/72 (95) 96 06/18/17 22:38 Nasal Cannula 5.00 06/18/17 20:01 93 Nasal Cannula 5.00 06/18/17 20:00 103 06/18/17 20:00 97.9 105 18 149/72 (97) 96 06/18/17 16:53 97.6 18 18 130/75 (93) 97 06/18/17 12:00 98.1 97 19 163/86 (111) 94 I/O 06/18/17 06/18/17 06/18/17 06/19/17 06/19/17 06/19/17 07:00 15:00 23:00 07:00 15:00 23:00 Intake Total 200 ml Output Total 300 ml 1200 ml Balance -100 ml -1200 ml Intake Oral 200 ml Output Urine Total 300 ml 1200 ml # Voids 7 Result Diagram: 06/18/17 0513 06/18/17 0512 Imaging Last Impressions Chest X-Ray 06/17/17 06 Signed Impressions: Service Date/Time: Saturday, June 17, 2017 03:46 - CONCLUSION: Improving bilateral pulmonary edema. Jeremy Chowdhury MD Head CT 06/16/17 0600 Signed Impressions: Service Date/Time: June 04:23 - CONCLUSION: 1. No evidence of acute intracranial pathology. No masses are identified. Porfirio Hollins MD Head Magnetic Resonance Angiography 06/16/17 0000 Signed Impressions: Service Date/Time: June 10:31 - CONCLUSION: 1. Focal moderate narrowing within the right mid postsurgical artery. 2. Mild narrowing in the distal right vertebral artery. 3. No large vessel thrombosis. Phi Thomas MD Brain MRI 06/16/17 0000 Signed Impressions: Service Date/Time: June 10:31 - CONCLUSION: 1. Acute infarction in the left basal ganglia primarily involving the left putamen and caudate nuclei. 2. A few punctate areas of restricted diffusion in the high right parietal lobe could be tiny infarcts as well. 3. No midline shift or mass effect. Phi Thomas MD Neck CTA 06/15/17 1206 Signed Impressions: Service Date/Time: Thursday, June 15, 2017 12:28 - CONCLUSION: 1. Minimal focal plaque in the proximal right internal carotid arteries without flow-limiting stenosis. 2. Mild eccentric primarily calcified plaque in the proximal left internal carotid artery with resultant less than 40%% stenosis. 3. Codominant patent vertebral arteries. 4. Incidental note of moderate bilateral pleural effusions with diffuse groundglass opacities in the visualized lung apices consistent with pulmonary edema pattern. Crispin Boyce MD Head CTA 06/15/17 1206 Signed Impressions: Service Date/Time: Thursday, June 15, 2017 12:28 - CONCLUSION: 1. Presumed embolus to the left M2 segment with partial occlusion of the left MCA territory. 2. Results were called to Dr. Mckinley in the ED at the time of this dictation. Anjel Jauregui MD Cerebral Arteriogram 06/15/17 0000 Signed Impressions: Service Date/Time: Thursday, June 15, 2017 13:07 - CONCLUSION: Successful left MCA embolectomy as above. Anjel Jauregui MD Objective Remarks GENERAL: Awake, 81 year-old female who appears her stated age and is in no acute respiratory distress. SKIN: Focused skin assessment warm/dry. CARDIOVASCULAR: IRR. S1, S2 without murmur. No JVD. RESPIRATORY: No accessory muscle use. Clear to auscultation. Breath sounds equal bilaterally. GASTROINTESTINAL: Abdomen soft, non-tender, nondistended. No guarding. MUSCULOSKELETAL: No obvious deformities. No clubbing. No cyanosis. No edema. NEUROLOGICAL: Awake and alert. Strength is 4+/5 bilateral upper and lower extremities. No loss of sensation. Oriented X 3. Procedures MCA embolectomy by IR A/P Problem List: (1) NSAID long-term use ICD Code: Z79.1 - [employer] (current) use of non-steroidal anti-inflammatories (NSAID) (2) Dyslipidemia ICD Code: E78.5 - Hyperlipidemia, unspecified (3) Hypertension ICD Code: I10 - Essential (primary) hypertension (4) Atrial fibrillation ICD Code: I48.91 - Unspecified atrial fibrillation (5) Hypothyroidism ICD Code: E03.9 - Hypothyroidism, unspecified (6) Glaucoma ICD Code: H40.9 - Unspecified glaucoma (7) Muscular dystrophy ICD Code: G71.0 - Muscular dystrophy (8) CVA (cerebral vascular accident) ICD Code: I63.9 - Cerebral infarction, unspecified Status: Acute (9) Aphasic stroke ICD Code: I69.920 - Aphasia following unspecified cerebrovascular disease Status: Acute Assessment and Plan 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 Jauregui. Stable Glaucoma History of muscle dystrophy MRI brain 06/16 revealed left basal ganglia - putamen and caudate nucleus and possible right parietal embolic CVA MRA brain 06/16 revealed right [employer] narrowing along with focal stenosis of the right vertebral artery. CT brain - no acute cranial findings CTA brain - left M2 partial-occlusion MCA distribution CTA neck - Minimal focal plaque in the proximal right internal carotid arteries without flow-limiting stenosis. Mild eccentric primarily calcified plaque in the proximal left internal carotid artery with resultant less than 40 % stenosis. Codominant patent vertebral arteries. Incidental note of moderate bilateral pleural effusions with diffuse groundglass opacities in the visualized lung apices consistent with pulmonary edema pattern. Continue timolol and latanoprost for glaucoma PT/OT/ST. CV: Hypertension Dyslipidemia Severe TR Atrial fibrillation 2-D echocardiogram revealed EF 60-65%. LVH. Severe TR. PAP 53 mmHg Colesevelam 625 mg 3 times a day will be resumed Amlodipine 10 mg by mouth daily currently on hold Metoprolol 25 mg 3 times a day rate control and Eliquis Resp: Nasal cannula for saturations greater than equal to 92%, wean Incentive spirometry while awake Possible pulmonary edema on chest x-ray left pleural effusion has improved Gently diurese with furosemide 20 mg daily monitor renal function GI: Advance diet as tolerated Pantoprazole for GI prophylaxis Docusate sodium/senna 1 tablet twice a day for bowel regimen : Hills catheter has been discontinued Endo: Hypothyroidism Sliding-scale insulin if indicated to maintain euglycemia Follow-up TSH 4.27. Started on levothyroxine 25 mcg daily. Follow TSH in 4-6 weeks. Renal: Creatinine currently within normal limits Monitor urine output Accurate I's and O's Heme: CBC within normal limits. ID: Monitor for infection UA results negative MSK: PT/OT evaluate and treat FEN: Hypokalemia Status post replacement continue to monitor while on diuresis Access - Utilize peripheral IV. Central line if indicated Prophylaxis - GI -pantoprazole - DVT - SCD/heparin drip and converted to Apixaban 5 mg twice a day Discharge Planning Stable for discharge to rehabilitation when arrangements made Problem Qualifiers (1) Hypertension: Qualified Codes: I10 - Essential (primary) hypertension (2) Atrial fibrillation: Qualified Codes: I48.91 - Unspecified atrial fibrillation (3) Hypothyroidism: Qualified Codes: E03.9 - Hypothyroidism, unspecified (4) Glaucoma: Qualified Codes: H40.1130 - Primary open-angle glaucoma, bilateral, stage unspecified (5) CVA (cerebral vascular accident): Qualified Codes: I63.9 - Cerebral infarction, unspecified Guillermo Terrazas MD Jun 19, 2017 10:23
[2017-06-19] MEDS ORDERED: WELC625T2 PO (10:26)
[2017-06-19] MEDS ORDERED: AMLO10TA2 PO (10:26)
[2017-06-19] MEDS ORDERED: VALS1TAB65 PO (10:26)
[2017-06-19] MEDS ORDERED: DORZ2SOL15 EACH EYE (10:26)
[2017-06-19] MEDS ORDERED: COLE625 PO (10:26)
[2017-06-19] MEDS ORDERED: LEVO100T5 PO (10:26)
[2017-06-19] MEDS ORDERED: FUROSEMIDE 20 MG TAB PO SCH (11:15)
[2017-06-19 12:00] VITALS: BP 166/86; PULSE 93; RESP 18; TEMP 97.6; O2SAT 92
[2017-06-19] MEDS ORDERED: CLAR10TA7 PO (13:44)
[2017-06-19] MEDS ORDERED: METO25TA3 PO (13:44)
[2017-06-19] MEDS ORDERED: APIX5TAB PO (13:44)
--- NOTE | 2017-06-19 13:45 | HHI.DCPOC ---
Discharge Care Plan Diagnosis: (1) CVA (cerebral vascular accident) Your Health Problems Are: Difficulty with ADL Exercise Tolerance Goals to Promote Your Health * To prevent worsening of your condition and complications * To maintain your health at the optimal level Directions to Meet Your Goals Take your medications as prescribed Follow your dietary instruction Follow activity as directed Keep your appointments as scheduled Take your immunizations and boosters as scheduled If your symptoms worsen call your PCP, if no PCP go to Urgent Care Center or Emergency Room Smoking is Dangerous to Your Health. Avoid second hand smoke Call the 24-hour hour crisis hotline for domestic abuse at Guillermo Terrazas MD Jun 19, 2017 13:45
[2017-06-19] MEDS ORDERED: LORATADINE 10 MG TAB PO SCH (14:00)
[2017-06-19] MEDS: COLESEVELAM HCL 625 MG TAB PO SCH (14:38)
[2017-06-20] MEDS ORDERED: LEVOTHYROXINE SODIUM 100 MCG TAB PO SCH (06:00)
--- NOTE | 2017-06-20 08:31 | HHI.DS ---
Discharge Summary Admission Date Jun 15, 2017 at 13:08 Discharge Date: Jun 19, 2017 Admitting Diagnosis CVA with aphasia, left MCA infarct (1) Dyslipidemia ICD Code: E78.5 - Hyperlipidemia, unspecified Diagnosis: Principal Status: Chronic (2) Hypertension ICD Code: I10 - Essential (primary) hypertension Diagnosis: Principal (3) Atrial fibrillation ICD Code: I48.91 - Unspecified atrial fibrillation Diagnosis: Principal Status: Chronic (4) Hypothyroidism ICD Code: E03.9 - Hypothyroidism, unspecified Diagnosis: Principal (5) Glaucoma ICD Code: H40.9 - Unspecified glaucoma Diagnosis: Secondary (6) Muscular dystrophy ICD Code: G71.0 - Muscular dystrophy Diagnosis: Principal (7) CVA (cerebral vascular accident) ICD Code: I63.9 - Cerebral infarction, unspecified Diagnosis: Principal Status: Acute (8) Aphasic stroke ICD Code: I69.920 - Aphasia following unspecified cerebrovascular disease Diagnosis: Principal Status: Acute Procedures MCA embolectomy by IR Brief History - From Admission 81-year-old female. Date of admission 06/15/2017. Past medical history includes muscular dystrophy/genetic unknown type, glaucoma, hypothyroidism, hypertension dyslipidemia. She also uses chronic NSAIDs 4.. Patient presents to [facility] ED the following history. Approximately 5 AM, patient acute onset of right-sided weakness she has baseline muscular dystrophy with decreased range of motion. She does use a walker to ambulate at baseline. Upon presentation patient to collect right-sided, right upper and lower extremity flaccidity. Normal strength/sensation left upper and lower extremity. Stroke alert was called. CT brain revealed no acute intracranial findings. CT angiogram of the brain revealed occlusion of the left M2 segment of the MCA. Patient is currently in IR for stent thrombosis retrieval. Currently on 2 L nasal cannula and hemodynamically stable. CBC/BMP: 06/18/17 0513 06/18/17 0512 Significant Findings Laboratory Tests Test 06/18/17 05:12 06/18/17 05:13 Creatinine 0.38 MG/DL (0.50-1.00) Calcium Level 8.2 MG/DL (8.5-10.1) Imaging Last Impressions Chest X-Ray 06/17/17599 Signed Impressions: Service Date/Time: Saturday, June 17, 2017 03:46 - CONCLUSION: Improving bilateral pulmonary edema. Jeremy Chowdhury MD Head CT 06/16/17 0600 Signed Impressions: Service Date/Time: June 04:23 - CONCLUSION: 1. No evidence of acute intracranial pathology. No masses are identified. Porfirio Hollins MD Head Magnetic Resonance Angiography 06/16/17 0000 Signed Impressions: Service Date/Time: June 10:31 - CONCLUSION: 1. Focal moderate narrowing within the right mid postsurgical artery. 2. Mild narrowing in the distal right vertebral artery. 3. No large vessel thrombosis. Phi Thomas MD Brain MRI 06/16/17 0000 Signed Impressions: Service Date/Time: June 10:31 - CONCLUSION: 1. Acute infarction in the left basal ganglia primarily involving the left putamen and caudate nuclei. 2. A few punctate areas of restricted diffusion in the high right parietal lobe could be tiny infarcts as well. 3. No midline shift or mass effect. Phi Thomas MD Neck CTA 06/15/17 1206 Signed Impressions: Service Date/Time: Thursday, June 15, 2017 12:28 - CONCLUSION: 1. Minimal focal plaque in the proximal right internal carotid arteries without flow-limiting stenosis. 2. Mild eccentric primarily calcified plaque in the proximal left internal carotid artery with resultant less than 40%% stenosis. 3. Codominant patent vertebral arteries. 4. Incidental note of moderate bilateral pleural effusions with diffuse groundglass opacities in the visualized lung apices consistent with pulmonary edema pattern. Crispin Boyce MD Head CTA 06/15/17 1206 Signed Impressions: Service Date/Time: Thursday, June 15, 2017 12:28 - CONCLUSION: 1. Presumed embolus to the left M2 segment with partial occlusion of the left MCA territory. 2. Results were called to Dr. Mckinley in the ED at the time of this dictation. Anjel Jauregui MD Cerebral Arteriogram 06/15/17 0000 Signed Impressions: Service Date/Time: Thursday, June 15, 2017 13:07 - CONCLUSION: Successful left MCA embolectomy as above. Anjel Jauregui MD PE at Discharge GENERAL: Awake, 81 year-old female who appears her stated age and is in no acute respiratory distress. SKIN: Focused skin assessment warm/dry. CARDIOVASCULAR: IRR. S1, S2 without murmur. No JVD. RESPIRATORY: No accessory muscle use. Clear to auscultation. Breath sounds equal bilaterally. GASTROINTESTINAL: Abdomen soft, non-tender, nondistended. No guarding. MUSCULOSKELETAL: No obvious deformities. No clubbing. No cyanosis. No edema. NEUROLOGICAL: Awake and alert. Strength is 4+/5 bilateral upper and lower extremities. No loss of sensation. Oriented X 3. 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 Jauregui. Stable Glaucoma History of muscle dystrophy MRI brain 06/16 revealed left basal ganglia - putamen and caudate nucleus and possible right parietal embolic CVA MRA brain 06/16 revealed right [employer] narrowing along with focal stenosis of the right vertebral artery. CT brain - no acute cranial findings CTA brain - left M2 partial-occlusion MCA distribution CTA neck - Minimal focal plaque in the proximal right internal carotid arteries without flow-limiting stenosis. Mild eccentric primarily calcified plaque in the proximal left internal carotid artery with resultant less than 40 % stenosis. Codominant patent vertebral arteries. Incidental note of moderate bilateral pleural effusions with diffuse groundglass opacities in the visualized lung apices consistent with pulmonary edema pattern. Continue timolol and latanoprost for glaucoma PT/OT/ST. CV: Hypertension Dyslipidemia Severe TR Atrial fibrillation 2-D echocardiogram revealed EF 60-65%. LVH. Severe TR. PAP 53 mmHg Colesevelam 625 mg 3 times a day will be resumed Amlodipine 10 mg by mouth daily currently on hold Metoprolol 25 mg 3 times a day rate control and Eliquis Resp: Nasal cannula for saturations greater than equal to 92%, wean Incentive spirometry while awake Possible pulmonary edema on chest x-ray left pleural effusion has improved Gently diurese with furosemide 20 mg daily monitor renal function GI: Advance diet as tolerated Pantoprazole for GI prophylaxis Docusate sodium/senna 1 tablet twice a day for bowel regimen : [place] catheter has been discontinued Endo: Hypothyroidism Sliding-scale insulin if indicated to maintain euglycemia Follow-up TSH 4.27. Started on levothyroxine 25 mcg daily. Follow TSH in 4-6 weeks. Renal: Creatinine currently within normal limits Monitor urine output Accurate I's and O's Heme: CBC within normal limits. ID: Monitor for infection UA results negative MSK: PT/OT evaluate and treat FEN: Hypokalemia Status post replacement continue to monitor while on diuresis Access - Utilize peripheral IV. Central line if indicated Prophylaxis - GI -pantoprazole - DVT - SCD/Apixaban 5 mg twice a day Pt Condition on Discharge: Stable Discharge Disposition: Rehab Inpatient Discharge Time: > 30 minutes Discharge Instructions DIET: Follow Instructions for: Heart Healthy Diet Speech Therapy-Diet Recommends: Regular Activities you can perform: Regular-No Restrictions Activities to Avoid: Driving Follow up Referrals: Neurology - 1 Week PCP Follow-up - 1 Week New Medications: Apixaban (Eliquis) 5 Mg Tab 5 MG PO BID for Prevent Blood Clot, #60 TAB Loratadine (Claritin) 10 Mg Tablet 5 MG PO DAILY for Allergy Management, #30 TAB Metoprolol Tartrate (Metoprolol Tartrate) 25 Mg Tab 25 MG PO Q8HR for Regulate Heart Beat, #90 TAB Continued Medications: Colesevelam (Welchol) 625 Mg Tab 1875 MG PO BID for Hyperlipidemia,type 2 diabetes, #180 TAB 0 Refills Dorzolamide-Timolol Opth Drops (Dorzolamide-Timolol Opth Drops) 22.3-6.8 Mg/Ml Soln 1 DROP EACH EYE BID for Glaucoma, BOTTLE 0 Refills Levothyroxine (Levothyroxine) 100 Mcg Tab 100 MCG PO DAILY for Thyroid, #30 TAB 0 Refills Guillermo Terrazas MD Jun 20, 2017 08:31
== END 2017-06-19 16:45 | DRG 24 ==
LOC: NEPC 11:51 → NEDA 13:08 → N03A 15:37 → N05A 06-18 11:14
PROVIDERS: ADMIT Internal Medicine; ATTEND Internal Medicine
PROC: 03CG3ZZ Extirpation of Matter from Intracranial Artery, Percutaneous Approach (ICD-10-PCS; principal; 2017-06-15)
DX: I63.412 Cerebral infarction due to embolism of left middle cerebral artery (principal); J81.1 Chronic pulmonary edema; G71.0 Muscular dystrophy; G81.91 Hemiplegia, unspecified affecting right dominant side; I48.91 Unspecified atrial fibrillation; R47.01 Aphasia; E87.6 Hypokalemia; I10 Essential (primary) hypertension; E03.9 Hypothyroidism, unspecified; E78.5 Hyperlipidemia, unspecified; H40.1130 Primary open-angle glaucoma, bilateral, stage unspecified; Z96.643 Presence of artificial hip joint, bilateral; Z96.652 Presence of left artificial knee joint; Z85.828 Personal history of other malignant neoplasm of skin; Z79.1 Long term (current) use of non-steroidal anti-inflammatories (NSAID)
CPT/HCPCS: 51702; 61645; 70450; 70496; 70498; 70544; 70551; 71045; 76937; 80048; 80053; 80061; 81001; 82435; 82550; 82565; 82947; 82948; 83036; 83735; 84100; 84132; 84295; 84443; 84484; 84520; 85025; 85027; 85610; 85730; 87086; 93005; 93306; 94150; 94640; 94664; C1760; C1769; C1887; C1894; G0269; J1644; J1940; J3370; J3475; J3480; J7030; J7050; Q9967

== ENCOUNTER 2017-11-11 11:55 | Inpatient (IN) | payer MEDICARE, BC ==
[~2017-11-11] VITALS: Ht 157.5 cm; Wt 65.0 kg
[2017-11-11] VITALS (23 sets, daily range): BP systolic 77–146; BP diastolic 45–80; PULSE 69–91; RESP 6–19; TEMP 92.4–97.9; O2SAT 85–100
[~2017-11-11 11:55] MED LIST changes: +AMLO5 PO; +APIX5TAB PO; -ASPI81TA82 PO; -CETI10 PO; -CIPRHC10A EACH EAR; +CLAR10TA7 PO; +COLE625 PO; -DIOV160T60 PO; -DORZ1SOL2 EACH EYE; +Dorzolamide 2% Opth Soln EACH EYE; +FLUT50SP EACH NARE; +GETGO ROLLING W1 MI1; +LEVO100T5 PO; -LEVO88TA2 PO; +MELA5 PO; +METO-309 PO; -MOTR200T PO; -NORV10TA PO; +PANT40TA3 PO; +PERI PO; +POLY99.0 EACH EYE; +TIMOLOL 0.25% EACH EYE; -WELC625T2 PO; +WHEE1EAC; -ZITH250T PO
--- NOTE | 2017-11-11 12:19 | PD ---
HPI Chief Complaint: General Weakness Time Seen by Provider: 12:04 Travel History International Travel<30 days: No Contact w/Intl Traveler<30days: No Traveled to known affect area: No History of Present Illness HPI Patient comes to the emergency department by EMS from home for reported increasing weakness and shortness of breath over the past 2 weeks. Patient has history of muscular dystrophy, glaucoma, hypothyroidism, hypertension, A. fib, dyslipidemia, and a CVA in June. Patient denies any complaints. Denies any chest pain, shortness of breath, headache, fevers, weakness, abdominal pain, or back pain. Patient denies any complaints. Denies anything making symptoms better or worse. Patient's primary care doctor is Dr. Abby Conley. 1222 patient at bedside reports that his has been getting progressively weaker over the past 15 days with decreasing mobility. States that the home health nurse came by today was checking his 's O2 sats and could not get a reading above 50% on room air felt patient was having some difficulty breathing and that was why she is brought to the emergency department. PFSH Past Medical History Hx Anticoagulant Therapy: Yes Arthritis: Yes (fingers and toes) Asthma: No Autoimmune Disease: No Anxiety: No Depression: No Heart Rhythm Problems: Yes (Afib) Cancer: No Cardiovascular Problems: Yes High Cholesterol: Yes Chemotherapy: No Chest Pain: No Congestive Heart Failure: No COPD: No Cerebrovascular Accident: Yes Diabetes: No Endocrine: Yes GERD: No Glaucoma: Yes Genitourinary: No Hiatal Hernia: No Hypertension: Yes Immune Disorder: No Kidney Stones: No Musculoskeletal: Yes (muscular dystrophy in whole body) Neurologic: Yes Psychiatric: No Reproductive: No Respiratory: Yes Migraines: No Radiation Therapy: No Renal Failure: No Seizures: No Sickle Cell Disease: No Sleep Apnea: No Thyroid Disease: Yes (hypothroidism) Ulcer: No Menopausal: Yes Past Surgical History Abdominal Surgery: No AICD: No Arteriovenous Shunt: No Cardiac Surgery: No Ear Surgery: Yes (bialteral ear sx as a child) Endocrine Surgery: No Eye Surgery: Yes (Cataract sx both eyes) Genitourinary Surgery: No Gynecologic Surgery: Yes (hysterectomy) Hysterectomy: No Insulin Pump: No Joint Replacement: Yes (bilat hip, left knee) Oral Surgery: No Pacemaker: No Thoracic Surgery: No Social History Alcohol Use: Yes (occas. wine) Tobacco Use: No Substance Use: No Allergies-Medications (Allergen,Severity, Reaction): Coded Allergies: chocolate flavor (Verified Allergy, Intermediate, break out in pimples, 11/11/17) amoxicillin (Unverified Allergy, Mild, rash, 11/11/17) Reported Meds & Prescriptions Reported Meds & Active Scripts Active Norvasc (Amlodipine Besylate) 5 Mg Tab 5 Mg PO DAILY Lopressor (Metoprolol Tartrate) 50 Mg Tab 75 Mg PO Q8HR Eliquis (Apixaban) 5 Mg Tab 5 Mg PO BID Reported Timoptic Opth Drops (Timolol Opth Drops) 0.25 % Soln 1 Drop EACH EYE Q12HR Erythromycin Opth Oint 5 Mg/Gm Oint 1 Applic EACH EYE DAILY Levofloxacin Opth Drops 0.5% Soln 1 Drop EACH EYE QID Fiber (Calcium Polycarbophil) 625 Mg Tab 625 Mg PO PRN Review of Systems Except as stated in HPI: all other systems reviewed are Neg Physical Exam Narrative GENERAL: Well-developed, well nourished, in no acute distress, and non-ill appearing. SKIN: Focused skin assessment warm and dry. HEAD: Atraumatic. Normocephalic. EYES: Pupils equal and round. EOMI. No scleral icterus. No injection or drainage. ENT: No nasal bleeding or discharge. Mucous membranes pink and moist. NECK: Trachea midline. Supple. No nuclear rigidity. CARDIOVASCULAR: Regular rate and rhythm. No murmur appreciated. RESPIRATORY: No accessory muscle use. No respiratory distress. Decreased breath sounds throughout. GASTROINTESTINAL: Abdomen soft, non-tender, nondistended, and no guarding. Hepatic and splenic margins not palpable. No pulsatile mass. MUSCULOSKELETAL: No obvious deformities. No clubbing. No cyanosis. 1+ edema of the lower extremities. Patient able to move all 4 extremities. NEUROLOGICAL: Awake and alert. No obvious cranial nerve deficits. Normal speech. PSYCHIATRIC: Appropriate mood and affect. Data Data Last Documented VS Vital Signs Date Time Temp Pulse Resp B/P (MAP) Pulse Ox O2 Delivery O2 Flow Rate FiO2 11/11/17 14:05 75 16 93/59 (70) 94 BiPAP 50 11/11/17 12:55 5.00 Orders Orders Electrocardiogram (11/11/17 12:11) Complete Blood Count With Diff (11/11/17 12:11) Comprehensive Metabolic Panel (11/11/17 12:11) Prothrombin Time / Inr (Pt) (11/11/17 12:11) Act Partial Throm Time (Ptt) (11/11/17 12:11) Lactic Acid Sepsis Protocol (11/11/17 12:11) Magnesium (Mg) (11/11/17 12:11) Ckmb (Isoenzyme) Profile (11/11/17 12:11) Troponin I (11/11/17 12:11) Urinalysis - C+S If Indicated (11/11/17 12:11) Blood Culture (11/11/17 12:11) Chest, Single Ap (11/11/17 12:11) Arterial Blood Gas (Abg) (11/11/17 12:11) Blood Glucose (11/11/17 12:11) Ecg Monitoring (11/11/17 12:11) Iv Access Insert/Monitor (11/11/17 12:11) Oximetry (11/11/17 12:11) Oxygen Administration (11/11/17 12:11) Ct Brain W/O Iv Contrast(Rout) (11/11/17 12:11) Resp Lab Draw Arterial Punctur (11/11/17 ) Resp Bipap / Cpap Non Invas Vt (11/11/17 ) Lorazepam Inj (Ativan Inj) (11/11/17 13:00) Ondansetron Odt (Zofran Odt) (11/11/17 13:00) CKMB (11/11/17 12:30) CKMB% (11/11/17 12:30) Sodium Chlorid 0.9% 500 Ml Inj (Ns 500 M (11/11/17 13:45) Urine Culture (11/11/17 13:45) Ceftriaxone Inj (Rocephin Inj) (11/11/17 14:30) Urinary Catheter Insert/Apply (11/11/17 14:24) Azithromycin Inj (Zithromax Inj) (11/11/17 14:45) Admit Order (Ed Use Only) (11/11/17 ) Electrical Installation Inspector / Telemetry BOBBY.Q8H (11/11/17 15:46) Vital Signs (Adult) Q4H (11/11/17 15:46) Activity Bed Rest (11/11/17 15:46) Notify Dr: Other (11/11/17 15:46) Labs Laboratory Tests Test 11/11/17 12:18 11/11/17 12:30 11/11/17 13:45 Blood Gas Puncture Site LT RADIAL Blood Gas Patient Temperature 98.6 Blood Gas HCO3 30 mmol/L Blood Gas Base Excess 2.6 mmol/L Blood Gas Oxygen Saturation 89 % Arterial Blood pH 7.22 Arterial Blood Partial Pressure CO2 76 mmHg Arterial Blood Partial Pressure O2 70 mmHG Arterial Blood Oxygen Content 17.4 Vol % Arterial Blood Carboxyhemoglobin 1.6 % Arterial Blood Methemoglobin 0.6 % Blood Gas Hemoglobin 14.0 G/DL Oxygen Delivery Device NASAL CANNULA Blood Gas Liter Flow 5 L/M White Blood Count 9.5 TH/MM3 Red Blood Count 5.51 MIL/MM3 Hemoglobin 13.6 GM/DL Hematocrit 44.4 % Mean Corpuscular Volume 80.6 FL Mean Corpuscular Hemoglobin 24.8 PG Mean Corpuscular Hemoglobin Concent 30.7 % Red Cell Distribution Width 18.9 % Platelet Count 345 TH/MM3 Mean Platelet Volume 7.8 FL Neutrophils (%) (Auto) 78.8 % Lymphocytes (%) (Auto) 8.0 % Monocytes (%) (Auto) 12.4 % Eosinophils (%) (Auto) 0.3 % Basophils (%) (Auto) 0.5 % Neutrophils # (Auto) 7.5 TH/MM3 Lymphocytes # (Auto) 0.8 TH/MM3 Monocytes # (Auto) 1.2 TH/MM3 Eosinophils # (Auto) 0.0 TH/MM3 Basophils # (Auto) 0.0 TH/MM3 CBC Comment DIFF FINAL Differential Comment Prothrombin Time 13.3 SEC Prothromb Time International Ratio 1.3 RATIO Activated Partial Thromboplast Time 29.3 SEC Blood Urea Nitrogen 23 MG/DL Creatinine 0.63 MG/DL Random Glucose 131 MG/DL Total Protein 6.8 GM/DL Albumin 3.0 GM/DL Calcium Level 7.9 MG/DL Magnesium Level 2.1 MG/DL Alkaline Phosphatase 96 U/L Aspartate Amino Transf (AST/SGOT) 31 U/L Alanine Aminotransferase (ALT/SGPT) 29 U/L Total Bilirubin 0.5 MG/DL Sodium Level 142 MEQ/L Potassium Level 4.1 MEQ/L Chloride Level 108 MEQ/L Carbon Dioxide Level 27.8 MEQ/L Anion Gap 6 MEQ/L Estimat Glomerular Filtration Rate 91 ML/MIN Lactic Acid Level 0.7 mmol/L Total Creatine Kinase 106 U/L Creatine Kinase MB 4.8 NG/ML Troponin I LESS THAN 0.02 NG/ML Urine Color YELLOW Urine Turbidity HAZY Urine pH 6.0 Urine Specific [place] 1.024 Urine Protein 100 mg/dL Urine Glucose (UA) NEG mg/dL Urine Ketones TRACE mg/dL Urine Occult Blood LARGE Urine Nitrite NEG Urine Bilirubin NEG Urine Urobilinogen LESS THAN 2.0 MG/DL Urine Leukocyte Esterase SMALL Urine RBC /hpf Urine WBC 17 /hpf Urine Squamous Epithelial Cells 2 /hpf Urine Bacteria MANY /hpf Urine Mucus MANY /lpf Microscopic Urinalysis Comment CATH-CULTURE IND MDM Medical Decision Making Medical Screen Exam Complete: Yes Emergency Medical Condition: Yes Interpretation(s) EKG reviewed by Dr. Berg shows atrial fibrillation with ventricular rate of 85. No STEMI. Last Impressions Head CT 11/11/171210 Signed Impressions: CONCLUSION: 1. Negative CT Head non contrast. Chest X-Ray 11/11/171210 Signed Impressions: CONCLUSION: 1. Large right pleural effusion and probable collapse and/or consolidation rig ht lower lung. 2. Left lung base opacity is present may be due to a combination of consolidat ion and or pleural effusion. 3. Mild pulmonary edema. Differential Diagnosis Pneumonia, CVA, metabolic disturbance, UTI, acute FL, deconditioning, respiratory acidosis, respiratory alkalosis, hypoxemia, TIA Narrative Course Patient was seen and examined. IV was established patient was placed on continuous cardiac monitoring. Initial laboratory and radiological studies were ordered. After reviewing ABG patient was placed on BiPAP. Patient was given 500 bolus of IV fluid and 0.5 mg of Ativan was ordered IV as patient was not tolerating the BiPAP as it was making her anxious having the mask on her face. Review of the UA and chest x-ray patient was started on IV Rocephin and IV azithromycin. Patient's [place] was changed. Discussed all findings and plan of care with patient's is agreeable to patient admitted. All questions were answered. After patient was admitted initially to the hospitalist. Patient started becoming hypotensive and unstable. Patient was intubated and admitted to the informatics application analyst. Please see Dr. Berg's note for further details. Physician Communication Physician Communication [id number] Randolph, who is agreeable to admit the patient. [address] Higuera informatics application analyst who is agreeable to admit the patient. Diagnosis Primary Impression: Respiratory failure Qualified Codes: J96.00 - Acute respiratory failure, unspecified whether with hypoxia or hypercapnia Additional Impressions: Pleural effusion Pneumonia Qualified Codes: J18.9 - Pneumonia, unspecified organism UTI (urinary tract infection) Qualified Codes: N39.0 - Urinary tract infection, site not specified; R31.9 - Hematuria, unspecified Respiratory acidosis Admitting Information Admitting Physician Requests: Admit Condition: Critical Anmol Geiger Nov 11, 2017 12:19
[2017-11-11] MEDS ORDERED: LORazepam 2 MG/ML VIAL IV PUSH ONE (13:00)
[2017-11-11] MEDS: ONDANSETRON ODT 4 MG TAB PO ONE (13:00)
[2017-11-11 13:06] LABS: AUTOMATED NEUTROPHIL # 7.5 TH/MM3 (1.8-7.7); BASOPHIL % 0.5 % (0.0-2.0); EOSINOPHIL % 0.3 % (0.0-4.0); HEMATOCRIT 44.4 % (35.0-46.0); HEMOGLOBIN 13.6 GM/DL (11.6-15.3); LYMPHOCYTE # 0.8 TH/MM3 (1.0-4.8); MEAN CELL VOLUME 80.6 FL (80.0-100.0); MEAN CORPUSCULAR HEMOGLOBIN 24.8 PG (27.0-34.0); MEAN CORPUSCULAR HGB CONC 30.7 % (32.0-36.0); MEAN PLATELET VOLUME 7.8 FL (7.0-11.0); MONO % 12.4 % (0.0-8.0); MONOCYTE # 1.2 TH/MM3 (0-0.9); NEUT % 78.8 % (16.0-70.0); PLATELET COUNT 345 TH/MM3 (150-450); RED BLOOD COUNT 5.51 MIL/MM3 (4.00-5.30); RED CELL DISTRIBUTION WIDTH 18.9 % (11.6-17.2); WHITE BLOOD COUNT 9.5 TH/MM3 (4.0-11.0)
[2017-11-11 13:13] LABS: INTERNATIONAL NORMALIZED RATIO 1.3 RATIO; PROTHROMBIN TIME - PATIENT 13.3 SEC (9.8-11.6)
[2017-11-11] MEDS ORDERED: ERYTOIN10 EACH EYE (13:16)
[2017-11-11] MEDS ORDERED: FIBE625T10 PO (13:16)
[2017-11-11] MEDS ORDERED: LEVO0.5S3 EACH EYE (13:16)
[2017-11-11 13:31] LABS: ALT (GPT) 29 U/L (10-53); AST (GOT) 31 U/L (15-37); BICARBONATE 27.8 MEQ/L (21.0-32.0); BLOOD UREA NITROGEN 23 MG/DL (7-18); CALCIUM 7.9 MG/DL (8.5-10.1); CHLORIDE 108 MEQ/L (98-107); CREATININE 0.63 MG/DL (0.50-1.00); GLOMERULAR FILTRATION RATE 91 ML/MIN (>89); GLUCOSE,RANDOM 131 MG/DL (74-106); MAGNESIUM 2.1 MG/DL (1.5-2.5); SODIUM (NA) 142 MEQ/L (136-145)
[2017-11-11 13:34] LABS: ALKALINE PHOSPHATASE 96 U/L (45-117); TOTAL BILIRUBIN ADULT 0.5 MG/DL (0.2-1.0); TOTAL PROTEIN 6.8 GM/DL (6.4-8.2); TROPONIN I LESS THAN 0.02 NG/ML (0.02-0.05)
[2017-11-11] MEDS ORDERED: TIMO0.255 EACH EYE (13:45)
[2017-11-11] MEDS ORDERED: SODIUM CHLORID 0.9% 500 ML INJ 500 ML IV ONE ×2 (13:45→17:15)
[2017-11-11 14:18] LABS: BACTERIA, URINE MANY /hpf; BILIRUBIN, URINE NEG (NEG); BLOOD, URINE LARGE (NEG); GLUCOSE,URINE NEG (NEG); KETONE, URINE TRACE mg/dL (NEG); MUCUS URINE MANY /lpf (OCC); NITRITE,URINE NEG (NEG); SQUAMOUS EPITHELIAL CELL URINE 2 /hpf (0-5); URINE COLOR YELLOW (YELLW/STRAW); URINE LEUKOCYTE ESTERASE SMALL (NEG)
[2017-11-11] MEDS ORDERED: cefTRIAXone INJ 1,000 MG in SODIUM CHLORIDE 0.9% INJ 100 ML IV ONE (14:30)
--- NOTE | 2017-11-11 14:39 | RADRPT ---
EXAM DATE: 11/11/2017 1:00 PM EDT AGE/SEX: 81 years / Female INDICATIONS: Weakness, very short of breath, nausea for 2 weeks, stroke in 2017 CLINICAL DATA: This is the patient's initial encounter. Patient reports that signs and symptoms have been present for 2 weeks and indicates a pain score of Nonresponsive. MEDICAL/SURGICAL HISTORY: Stroke. None. [place] [facility] [place] . FINDINGS: There is a large right pleural effusion not present previously. Left lung base opacity is present may be due to a combination of consolidation and or pleural effusion. Right lung base consolidation and /or compressive collapse is also seen. Slight cardiomegaly seen with mild pulmonary edema. CONCLUSION: 1. Large right pleural effusion and probable collapse and/or consolidation right lower lung. 2. Left lung base opacity is present may be due to a combination of consolidation and or pleural eff usion. 3. Mild pulmonary edema. Electronically signed by: Glenys Casillas MD 11/11/2017 1:04 PM EDT
--- NOTE | 2017-11-11 14:39 | RADRPT ---
EXAM DATE: 11/11/2017 1:37 PM EDT AGE/SEX: 81 years / Female INDICATIONS: Weakness. Short of breath. CLINICAL DATA: This is the patient's initial encounter. Patient reports that signs and symptoms have been present for 1 day and indicates a pain score of 0/10. MEDICAL/SURGICAL HISTORY: Stroke. Cardiovascular disease. Hypertension. Hysterectomy. RADIATION DOSE: 36.26 CTDI (mGy) [place] [facility] [place]/16/2017. . TECHNIQUE: CT of the head without contrast. Using automated exposure control and adjustment of the mA and/or kV according to patient size, radiation dose was kept as low as reasonably achievable to ob tain optimal diagnostic quality images. FINDINGS: Cerebrum: The ventricles are normal for age. No evidence of midline shift, mass lesion, hemorrhage or acute infarction. No extraaxial fluid collections are seen. Posterior Fossa: The cerebellum and brainstem are intact. The 4th ventricle is midline. The cerebe llopontine angle is unremarkable. Extracranial: The visualized portion of the orbits is intact. Skull: The calvaria is intact. No evidence of skull fracture. CONCLUSION: 1. Negative CT Head non contrast. Electronically signed by: Braeden Maher MD 11/11/2017 1:51 PM EDT
[2017-11-11] MEDS ORDERED: AZITHROMYCIN INJ 500 MG in SODIUM CHLOR 0.9% 250 ML INJ 250 ML IV ONE (14:45)
--- NOTE | 2017-11-11 15:17 | PD ---
Physical Exam Date Seen by Provider: Nov 11, 2017 Time Seen by Provider: 15:00 Narrative Seeing this patient with Suraj Geiger PA-C. This is a 81-year-old female presents via home after home health nurse found her O2 sats to be low. Report was that her O2 sats were in the 50s. Patient presents here today with altered mental status. Patient's blood gas showed a pH 7.2. She was placed on BiPAP. After over an hour on BiPAP, patient's blood pressure started to drop. Chest x- ray revealed a right pleural effusion with a probable left-sided pneumonia. Patient also had urinalysis that showed a UTI. Data Data Last Documented VS Vital Signs Date Time Temp Pulse Resp B/P (MAP) Pulse Ox O2 Delivery O2 Flow Rate FiO2 11/11/17 14:05 75 16 93/59 (70) 94 BiPAP 50 11/11/17 12:55 5.00 Orders Orders Electrocardiogram (11/11/17 12:11) Complete Blood Count With Diff (11/11/17 12:11) Comprehensive Metabolic Panel (11/11/17 12:11) Prothrombin Time / Inr (Pt) (11/11/17 12:11) Act Partial Throm Time (Ptt) (11/11/17 12:11) Lactic Acid Sepsis Protocol (11/11/17 12:11) Magnesium (Mg) (11/11/17 12:11) Ckmb (Isoenzyme) Profile (11/11/17 12:11) Troponin I (11/11/17 12:11) Urinalysis - C+S If Indicated (11/11/17 12:11) Blood Culture (11/11/17 12:11) Chest, Single Ap (11/11/17 12:11) Arterial Blood Gas (Abg) (11/11/17 12:11) Blood Glucose (11/11/17 12:11) Ecg Monitoring (11/11/17 12:11) Iv Access Insert/Monitor (11/11/17 12:11) Oximetry (11/11/17 12:11) Oxygen Administration (11/11/17 12:11) Ct Brain W/O Iv Contrast(Rout) (11/11/17 12:11) Resp Lab Draw Arterial Punctur (11/11/17 ) Resp Bipap / Cpap Non Invas Vt (11/11/17 ) Lorazepam Inj (Ativan Inj) (11/11/17 13:00) Ondansetron Odt (Zofran Odt) (11/11/17 13:00) CKMB (11/11/17 12:30) CKMB% (11/11/17 12:30) Sodium Chlorid 0.9% 500 Ml Inj (Ns 500 M (11/11/17 13:45) Urine Culture (11/11/17 13:45) Ceftriaxone Inj (Rocephin Inj) (11/11/17 14:30) Urinary Catheter Insert/Apply (11/11/17 14:24) Azithromycin Inj (Zithromax Inj) (11/11/17 14:45) Admit Order (Ed Use Only) (11/11/17 ) Supervisor Phosphorus Processing / Telemetry BOBBY.Q8H (11/11/17 15:46) Vital Signs (Adult) Q4H (11/11/17 15:46) Activity Bed Rest (11/11/17 15:46) Notify Dr: Other (11/11/17 15:46) Labs Laboratory Tests Test 11/11/17 12:18 11/11/17 12:30 11/11/17 13:45 Blood Gas Puncture Site LT RADIAL Blood Gas Patient Temperature 98.6 Blood Gas HCO3 30 mmol/L Blood Gas Base Excess 2.6 mmol/L Blood Gas Oxygen Saturation 89 % Arterial Blood pH 7.22 Arterial Blood Partial Pressure CO2 76 mmHg Arterial Blood Partial Pressure O2 70 mmHG Arterial Blood Oxygen Content 17.4 Vol % Arterial Blood Carboxyhemoglobin 1.6 % Arterial Blood Methemoglobin 0.6 % Blood Gas Hemoglobin 14.0 G/DL Oxygen Delivery Device NASAL CANNULA Blood Gas Liter Flow 5 L/M White Blood Count 9.5 TH/MM3 Red Blood Count 5.51 MIL/MM3 Hemoglobin 13.6 GM/DL Hematocrit 44.4 % Mean Corpuscular Volume 80.6 FL Mean Corpuscular Hemoglobin 24.8 PG Mean Corpuscular Hemoglobin Concent 30.7 % Red Cell Distribution Width 18.9 % Platelet Count 345 TH/MM3 Mean Platelet Volume 7.8 FL Neutrophils (%) (Auto) 78.8 % Lymphocytes (%) (Auto) 8.0 % Monocytes (%) (Auto) 12.4 % Eosinophils (%) (Auto) 0.3 % Basophils (%) (Auto) 0.5 % Neutrophils # (Auto) 7.5 TH/MM3 Lymphocytes # (Auto) 0.8 TH/MM3 Monocytes # (Auto) 1.2 TH/MM3 Eosinophils # (Auto) 0.0 TH/MM3 Basophils # (Auto) 0.0 TH/MM3 CBC Comment DIFF FINAL Differential Comment Prothrombin Time 13.3 SEC Prothromb Time International Ratio 1.3 RATIO Activated Partial Thromboplast Time 29.3 SEC Blood Urea Nitrogen 23 MG/DL Creatinine 0.63 MG/DL Random Glucose 131 MG/DL Total Protein 6.8 GM/DL Albumin 3.0 GM/DL Calcium Level 7.9 MG/DL Magnesium Level 2.1 MG/DL Alkaline Phosphatase 96 U/L Aspartate Amino Transf (AST/SGOT) 31 U/L Alanine Aminotransferase (ALT/SGPT) 29 U/L Total Bilirubin 0.5 MG/DL Sodium Level 142 MEQ/L Potassium Level 4.1 MEQ/L Chloride Level 108 MEQ/L Carbon Dioxide Level 27.8 MEQ/L Anion Gap 6 MEQ/L Estimat Glomerular Filtration Rate 91 ML/MIN Lactic Acid Level 0.7 mmol/L Total Creatine Kinase 106 U/L Creatine Kinase MB 4.8 NG/ML Troponin I LESS THAN 0.02 NG/ML Urine Color YELLOW Urine Turbidity HAZY Urine pH 6.0 Urine Specific [place] 1.024 Urine Protein 100 mg/dL Urine Glucose (UA) NEG mg/dL Urine Ketones TRACE mg/dL Urine Occult Blood LARGE Urine Nitrite NEG Urine Bilirubin NEG Urine Urobilinogen LESS THAN 2.0 MG/DL Urine Leukocyte Esterase SMALL Urine RBC /hpf Urine WBC 17 /hpf Urine Squamous Epithelial Cells 2 /hpf Urine Bacteria MANY /hpf Urine Mucus MANY /lpf Microscopic Urinalysis Comment CATH-CULTURE IND MDM Medical Record Reviewed: Yes Supervised Visit with JENNIFER: Yes Differential Diagnosis Sepsis versus ammonia versus respiratory failure versus metabolic derangement versus UTI Narrative Course 81-year-old female presents with low O2 sats at home. Patient is noted to have a large right-sided pleural effusion with a left-sided pneumonia. Patient also has UTI. She has been started on Rocephin and Zithromax. Initially she was started on BiPAP however she developed low blood pressure. Her oxygen saturations remained in the low 90s. She was intubated and placed on IV pressors. She was also started on IV fluid bolus. Case was discussed with Dr. Yenifer Higuera, on-call wind farm operations manager who will admit the patient to her service. Dr. Higuera down seen the patient right now. I discussed with the that the patient is extremely critical and at this point he wishes to do everything but does state it if it looks like she is going to be on a ventilator for permanent status that she would not wish this and will likely want to withdraw care. At this time she is a full code. Critical Care Narrative Aggregate critical care time was 60 minutes. Time to perform other separately billable procedures was not included in the critical care time. My time did not include minutes spent treating any other patients simultaneously or on activities that did not directly contribute to the patient's treatment. The services I provided to this patient were to treat and/or prevent clinically significant deterioration that could result in: I provided critical care services requiring my management, as noted below: Chart data review, documentation time, medication orders and management, vital sign assessments/reviewing monitor data, ordering and reviewing lab tests, ordering and interpreting/reviewing x-rays and diagnostic studies, care of the patient and discussion of the patient with the admitting physicians. Procedures Procedure Narrative Intubated emergently. Under my direct supervision, patient was intubated using a glide scope by Suraj Geiger PA-C. INTUBATION: The patient was put in optimal position for the procedure. Rapid sequence intubation was initiated by me using 10 milligrams of etomidate IV and 80 milligrams of succinylcholine IV. The patient was intubated with a 7.5 cuffed endotracheal tube. Tube placement was confirmed by visualization of the tube and balloon passing through the cords, capnometry and subsequent chest x- ray. Breath sounds were equal and well aerated bilaterally postintubation. No breath sounds over stomach. Patient tolerated procedure well. Diagnosis Primary Impression: Pleural effusion Additional Impressions: Respiratory acidosis UTI (urinary tract infection) Pneumonia Qualified Codes: J18.9 - Pneumonia, unspecified organism Condition: Stable Bronson Berg MD Nov 11, 2017 15:17
[2017-11-11] MEDS ORDERED: RESP: ALBUTEROL 2.5 MG/3 ML NEB (PRN) INH (16:00)
[2017-11-11] MEDS ORDERED: SODIUM CHLORIDE 0.9% FLUSH 10 ML FLUSH IV FLUSH PRN (16:00)
[2017-11-11] MEDS ORDERED: ETOMIDATE 40 MG/20 ML VIAL ONE (16:13)
[2017-11-11] MEDS ORDERED: SUCCINYLCHOLINE CHLORIDE 200 MG/10 ML VIAL ONE (16:13)
[2017-11-11] MEDS ORDERED: NOREPINEPHRINE 4 MG/4 ML AMP ONE (16:18)
[2017-11-11] MEDS: RESP: ALBUTEROL 2.5 MG/IPRATROPIUM 0.5 MG NEB (SCH) INH ×2 (16:26→17:26)
--- NOTE | 2017-11-11 16:32 | HHI.HP ---
[facility] Service Critical Care Medicine Primary Care Physician Abby Conley MD Admission Diagnosis Respiratory acidosis, pleural effusion, pneumonia, UTI Diagnosis: Travel History International Travel<30 Days: No Contact w/Intl Traveler <30 Da: No Traveled to Known Affected Are: No History of Present Illness 81-year-old female presents from home via EMS due to respiratory distress. She was most recently admitted to [facility] 06/15/17 due to acute ischemic stroke and underwent IR embolectomy. She also has a history of muscular dystrophy, glaucoma, hypertension, hyperlipidemia, hypothyroidism, atrial fibrillation on chronic anticoagulation with Eliquis. After her stroke she was treated at [facility] and was discharged to home July 10, 2017. Her states she has generally been getting "weaker" over the last couple of weeks and has not been eating as much. She has complained of nausea but has not had any vomiting, diarrhea, abdominal pain, cough, fever, headache or chest pain. She has had decreased mobility over the last couple of weeks. Apparently she was able to use a walker when she left [place] but now she has had difficulty transferring to a wheelchair. Because of her decreased mobility a Hills was placed on Thursday 11/09. She also has decubitus ulcers on her buttocks and was receiving home health care to help manage her wounds. Earlier this morning home health came to assist her with her bath and reportedly sats were in the 80s. Subsequently home health came to assist with managing her wounds and reportedly sats were in the 50s. She was brought to the emergency department where she was lethargic on arrival and had acute hypercapnic respiratory failure with pH 7.22/PaCO2 of 76/PaO2 of 70 on 5 L nasal cannula. Chest x-ray demonstrated opacification of the right lower lobe which may be a combination of consolidation and effusion. She was placed on BiPAP and was initially going to be admitted to the hospitalist service on [facility].. She became hypotensive and unresponsive and so she was intubated. There is been difficulty obtaining cuff pressures and radial art line was attempted but unsuccessful. She has been started on Levophed. She has received normal saline total of 2 L bolus. I have placed a central line and art line. [place] [facility] [place] of Systems ROS Limitations: Clinical Condition, Intubated Past Family Social History Allergies: Coded Allergies: chocolate flavor (Verified Allergy, Intermediate, break out in pimples, 11/11/17) amoxicillin (Unverified Allergy, Mild, rash, 11/11/17) Past Medical History Conjunctivitis, recently started on antibiotics 4-5 days ago Muscular dystrophy Glaucoma Hypothyroidism Hypertension Hyperlipidemia Claustrophobia Arthritis Atrial fibrillation Tricuspid regurgitation Chronic anticoagulation with Eliquis Past Surgical History Bilateral hip replacement Left knee arthroplasty Basal cell cancer removed Biopsy right breast 10-15 years ago which was negative for malignancy Left MCA angiography and embolectomy 06/15/17 (Dr. Jauregui) Hysterectomy and oophorectomy Reported Medications Eliquis 5 mill grams p.o. twice daily Lopressor 75 mg p.o. every 8 hours Norvasc 5 mg p.o. daily Erythromycin ophthalmic each eye daily Levothyroxine ophthalmic 0.51 drop each eye 4 times daily Timolol 0.25% 1 drop each eye every 12 hours Fiber supple Family History Brother has fibromyalgia and muscular dystrophy Social History Lifetime non-smoker Occasional wine with friends but no longer No illicit drug use Has been living at home since discharge from [facility] 07/10/17 When she was discharged from [facility] she was able to use a walker but she has had steady decline since being at home and now is having difficulty transferring and using a wheelchair. Her indicates he would like placement in a long term upon discharge from this hospital stay. Preferably in [place] where he lives. Her states she previously made advanced directives but they cannot be obtained because they are in a home in [place] and they no longer have access to them. He says he does not know which hospital she was in when she made them and does not believe that they were drawn up by an district attorney that would have a copy. He states that he is familiar with her wishes and that she would wish to be full code but did not want prolonged life support "if there was no hope of getting better". Physical Exam Vital Signs Vital Signs Date Time Temp Pulse Resp B/P (MAP) Pulse Ox O2 Delivery O2 Flow Rate FiO2 11/11/17 16:24 97 100 11/11/17 16:15 70 89/54 (66) 88 11/11/17 14:05 75 16 93/59 (70) 94 BiPAP 50 11/11/17 13:41 69 16 120/65 (83) 85 BiPAP 50 11/11/17 13:10 95 50 11/11/17 12:55 94 Nasal Cannula 5.00 11/11/17 12:45 94 50 11/11/17 12:35 76 19 123/76 (92) 96 Nasal Cannula 5.00 11/11/17 12:35 96 Nasal Cannula 5.00 11/11/17 12:12 96 Nasal Cannula 5.00 11/11/17 12:00 71 17 119/78 (92) 93 Physical Exam GENERAL: Elderly under nourished appearing frail female who is orotracheally intubated. She has been sedated with Versed prior to my examination. SKIN: Skin is cool, cap refill delayed. HEAD: Atraumatic. Normocephalic. EYES: Right pupil is pinpoint, left pupil is 2 mm sluggishly reactive to 1 mm. Bilateral conjunctive is extremely erythematous and inflamed appearing. No exudate. ENT: No nasal bleeding or discharge. Mucous membranes dry NECK: Trachea midline. No JVD. CARDIOVASCULAR: Irregular, no murmurs rubs or gallops appreciated. RESPIRATORY: Orotracheally intubated on mechanical ventilation. No significant secretions with suctioning. Diminished breath sounds bilaterally. No wheezes rales GASTROINTESTINAL: Abdomen soft, non-tender, nondistended. Bowel sounds hypoactive. Vertical scar infraumbilical. : Hills in place with very minimal joanie urine. MUSCULOSKELETAL: Extremities without clubbing, cyanosis 2+ edema bilateral lower extremities below the knee. NEUROLOGICAL: Eyes are spontaneously open and states that she often sleeps this way. Withdraws with all extremities to noxious stimuli. Not following commands or purposeful. Has received Versed 4 mg IV prior to my examination Laboratory Laboratory Tests Test 11/11/17 12:18 11/11/17 12:30 11/11/17 13:45 Blood Gas Puncture Site LT RADIAL Blood Gas Patient Temperature 98.6 Blood Gas HCO3 30 Blood Gas Base Excess 2.6 Blood Gas Oxygen Saturation 89 Arterial Blood pH 7.22 Arterial Blood Partial Pressure CO2 76 Arterial Blood Partial Pressure O2 70 Arterial Blood Oxygen Content 17.4 Arterial Blood Carboxyhemoglobin 1.6 Arterial Blood Methemoglobin 0.6 Blood Gas Hemoglobin 14.0 Oxygen Delivery Device NASAL CANNULA Blood Gas Liter Flow 5 White Blood Count 9.5 Red Blood Count 5.51 Hemoglobin 13.6 Hematocrit 44.4 Mean Corpuscular Volume 80.6 Mean Corpuscular Hemoglobin 24.8 Mean Corpuscular Hemoglobin Concent 30.7 Red Cell Distribution Width 18.9 Platelet Count 345 Mean Platelet Volume 7.8 Neutrophils (%) (Auto) 78.8 Lymphocytes (%) (Auto) 8.0 Monocytes (%) (Auto) 12.4 Eosinophils (%) (Auto) 0.3 Basophils (%) (Auto) 0.5 Neutrophils # (Auto) 7.5 Lymphocytes # (Auto) 0.8 Monocytes # (Auto) 1.2 Eosinophils # (Auto) 0.0 Basophils # (Auto) 0.0 CBC Comment DIFF FINAL Differential Comment Prothrombin Time 13.3 Prothromb Time International Ratio 1.3 Activated Partial Thromboplast Time 29.3 Blood Urea Nitrogen 23 Creatinine 0.63 Random Glucose 131 Total Protein 6.8 Albumin 3.0 Calcium Level 7.9 Magnesium Level 2.1 Alkaline Phosphatase 96 Aspartate Amino Transf (AST/SGOT) 31 Alanine Aminotransferase (ALT/SGPT) 29 Total Bilirubin 0.5 Sodium Level 142 Potassium Level 4.1 Chloride Level 108 Carbon Dioxide Level 27.8 Anion Gap 6 Estimat Glomerular Filtration Rate 91 Lactic Acid Level 0.7 Total Creatine Kinase 106 Creatine Kinase MB 4.8 Troponin I LESS THAN 0.02 Urine Color YELLOW Urine Turbidity HAZY Urine pH 6.0 Urine Specific [place] 1.024 Urine Protein 100 Urine Glucose (UA) NEG Urine Ketones TRACE Urine Occult Blood LARGE Urine Nitrite NEG Urine Bilirubin NEG Urine Urobilinogen LESS THAN 2.0 Urine Leukocyte Esterase SMALL Urine RBC Urine WBC 17 Urine Squamous Epithelial Cells 2 Urine Bacteria MANY Urine Mucus MANY Microscopic Urinalysis Comment CATH-CULTURE IND Date/Time Source Procedure Growth Status 11/11/17 12:35 Blood Peripheral Aerobic Blood Culture Pending Received 11/11/17 12:35 Blood Peripheral Anaerobic Blood Culture Pending Received 11/11/17 13:45 Urine Catheterized Urine Urine Culture Pending Received Result Diagram: 11/11/17 1230 11/11/17 1230 Septic Shock Reassessment Septic shock perfusion: reassessment completed Caprini VTE Risk Assessment Caprini VTE Risk Assessment: Mod/High Risk (score >= 2) VTE Pharm Contraindication: Anticoagulated with Eliquis Caprini Risk Assessment Model Point Value = 1 Point Value = 2 Point Value = 3 Point Value = 5 Age 41-60 Minor surgery BMI > 25 kg/m2 Swollen legs Varicose veins or History of unexplained or recurrent spontaneous Oral contraceptives or hormone replacement Sepsis (< 1 month) Serious lung disease, including pneumonia (< 1 month) Abnormal pulmonary function Acute myocardial infarction Congestive heart failure (< 1 month) History of inflammatory bowel disease Medical patient at bed rest Age 61-74 Arthroscopic surgery Major open surgery (> 45 min) Laparoscopic surgery (> 45 min) Malignancy Confined to bed (> 72 hours) Immobilizing plaster cast Central venous access Age >= 75 History of VTE Family history of VTE Factor V Leiden Prothrombin [id number] Lupus anticoagulant Anticardiolipin antibodies Elevated serum homocysteine Heparin-induced thrombocytopenia Other congenital or acquired thrombophilia Stroke (< 1 month) Elective arthroplasty Hip, pelvis, or leg fracture Acute spinal cord injury (< 1 month) Prophylaxis Regimen Total Risk Factor Score Risk Level Prophylaxis Regimen 0-1 Low Early ambulation 2 Moderate Order ONE of the following: *Sequential Compression Device (SCD) *Heparin 5000 units SQ BID 3-4 Higher Order ONE of the following medications: *Heparin 5000 units SQ TID *Enoxaparin/Lovenox 40 mg SQ daily (WT < 150 kg, CrCl > 30 mL/min) *Enoxaparin/Lovenox 30 mg SQ daily (WT < 150 kg, CrCl > 10-29 mL/min) *Enoxaparin/Lovenox 30 mg SQ BID (WT < 150 kg, CrCl > 30 mL/min) AND/OR *Sequential Compression Device (SCD) 5 or more Highest Order ONE of the following medications: *Heparin 5000 units SQ TID (Preferred with Epidurals) *Enoxaparin/Lovenox 40 mg SQ daily (WT < 150 kg, CrCl > 30 mL/min) *Enoxaparin/Lovenox 30 mg SQ daily (WT < 150 kg, CrCl > 10-29 mL/min) *Enoxaparin/Lovenox 30 mg SQ BID (WT < 150 kg, CrCl > 30 mL/min) AND *Sequential Compression Device (SCD) Assessment and Plan Assessment and Plan NEURO: Muscular dystrophy Prior stroke June 2017 Acute encephalopathy Fentanyl drip for now good sedation. D/c versed drip. Use Versed bolus as needed. If she needs additional sedative drip and initiate propofol Target RASS -2 CT brain 11/11 - no acute abnormality RESP: Acute hypercapnic respiratory failure Bilateral pleural effusions, Bilateral consolidations/atelectasis PRVC, ventilator bundle, DuoNeb every 4 hours, albuterol every 2 hours as needed. Hypoxic upon my arrival to the ED. Increase PEEP to 8. Initial CXR with bibasilar opacification that appears secondary to consolidation and bilateral effusions. Aeration appeared better in RLL on post intubation CXR. ETT in satisfactory position F/u CT chest. Send sputum culture and cover with antibiotics as per below CV: Atrial fibrillation Pulmonary Hypertension Severe TR Bilateral pleural effusions Follow serial EKGs and cardiac marker. 2D echo from 06/16/17mild concentric LVH. EF 60-65%. Mild left atrial dilation. Moderate thickening of mitral valve. Severe tricuspid regurg. Pulmonary artery pressure 52.8 mm Follow-up 2D echo Has received 2 L normal saline in the emergency department. Levophed to maintain mean arterial pressure greater than 65. LR 100 ml/hr. Initial lactic acid 0.7. Will recheck and trend if it has become abnormal. She is chronically on Eliquis which we will hold while she is critically ill in anticipation and requiring thoracentesis. Use heparin drip as she is at high risk of stroke. Last dose of eliquis was morning 11/11. Hold Norvasc 5 mg p.o. daily and metoprolol 75 mill grams p.o. every 8 hours due to hypotension GI: Insert orogastric tube. Placed to low intermittent wall suction. Initiate enteral feeds if stabilized in the morning. FEN/RENAL: Acute kidney injury Hills in place. She is oliguric. Monitor intake and output. Monitor electrolytes and replace as indicated. Obtain renal Ultrasound. , Urine eosinophil CPK normal ID: UTI Aspiration versus community-acquired pneumonia Hills was replaced in the emergency department 11/11 Follow-up urine culture and blood cultures Send sputum culture, urine legionella and pneumococcal antigens. Received ceftriaxone and azithromycin in the emergency department. We will continue coverage with cefepime, azithromycin and will cover for with Flagyl due to concern for aspiration. Conjunctivitis/probable keratitis secondary to inability to close eyes completely. Patient previously refused surgical intervention for this Erythromycin ophthalmic daily Levofloxacin ocular drops Glaucoma Continue timolol 0.25% ophthalmic each eye every 12 hours HEME: Chronic anticoagulation with Eliquis for atrial fibrillation and history of stroke Hemoglobin normal. Platelet count normal. Hold Eliquis. Heparin drip as per above ENDO: Monitor glucose every 6 hours and initiate low-dose insulin sliding scale as indicated. Hypothyroidism TSH is elevated. Synthroid dose unknown, will clarify with PROPH: SCDs for DVT prophylaxis. Heparin drip as per above. Famotidine for stress ulcer prophylaxis ACCESS: Right IJ central venous line placed especially #1. Left radial art line +6/8 #1. Her states she previously made advanced directives but they cannot be obtained because they are in a home in [place] and they no longer have access to them. He says he does not know which hospital she was in when she made them and does not believe that they were drawn up by an district attorney that would have a copy. He states that he is familiar with her wishes and that she would wish to be full code but did not want prolonged life support "if there was no hope of getting better". Full code Patient is critically ill with shock, respiratory failure and hypoxia. She was unstable upon my arrival in the emergency department and requiring ventilator management and management of fluids and vasopressors. She is at high risk for further deterioration and . Critical care time 60 minutes exclusive of separately billable procedures. Yenifer Higuera MD Nov 11, 2017 16:32
[2017-11-11] MEDS ORDERED: MIDAZOLAM HCL 5 MG/ML VIAL (1 ML) ONE (16:40)
[2017-11-11] MEDS ORDERED: MIDAZOLAM 100 MG/100 ML INJ 100 ML IV PRN (17:00)
[2017-11-11] MEDS ORDERED: MIDAZOLAM HCL 2 MG/2 ML VIAL IV PUSH ONE (17:00)
[2017-11-11] MEDS ORDERED: SUCCINYLCHOLINE CHLORIDE 200 MG/10 ML VIAL IV PUSH ONE (17:00)
[2017-11-11] MEDS ORDERED: ETOMIDATE 20 MG/10 ML VIAL IVP ONE (17:00)
[2017-11-11] MEDS ORDERED: SODIUM CHLOR 0.9% 1000 ML INJ 1,000 ML IV ONE (17:15)
[2017-11-11] MEDS ORDERED: MIDAZOLAM 50 MG/50 ML INJ 50 ML IV PRN (17:15)
[2017-11-11] MEDS: methylPREDNISolone SOD SUCC 125 MG/2 ML VIAL IV PUSH SCH ×2 (17:33→20:45)
[2017-11-11] MEDS ORDERED: RESP: ALBUTEROL 2.5 MG/3 ML NEB (PRN) NEB (17:45)
[2017-11-11] MEDS ORDERED: ERYTHROMYCIN 0.5% OPTH OINT 3.5 GM TUBO EACH EYE SCH (17:45)
--- NOTE | 2017-11-11 17:45 | PD.PROCEDR ---
Central Line Procedure DATE: 11/11/17 CENTRAL LINE PLACEMENT: Right internal jugular vein. INDICATION: Central venous access CONSENT Informed consent for procedure was obtained from patient's after discussion of risks, benefits, alternatives. DESCRIPTION OF THE PROCEDURE The patient was placed in supine position, mild Trendelenburg. The skin was cleansed with Chloraprep x4. Additional barrier precautions included large sterile drape, sterile gloves, sterile gown, face mask, and hat. 1 % lidocaine was used for local anesthesia. Under direct ultrasound guidance and on single attempt, the vein was accessed with an introducer needle. The guide wire was advanced and the tract was dilated. Using Seldinger technique a 7 [place] 20 cm antimicrobial coated triple-lumen catheter was advanced to a depth of 17 centimeters. The guide wire was removed. All ports had good return of dark venous blood and flushed easily with saline. The central line was secured with 2.0 silk because could not be secured satisfactorily with Stat-lock. A sterile dressing with antibiotic disc was applied. ESTIMATED BLOOD LOSS: Minimal COMPLICATIONS: No apparent complications. STAT chest x-ray demonstrates satisfactory central line position without apparent complication. Yenifer Higuera MD Nov 11, 2017 17:45
--- NOTE | 2017-11-11 17:48 | RADRPT ---
EXAM DATE: 11/11/2017 5:44 PM EDT AGE/SEX: 81 years / Female INDICATIONS: Status post central line placement. CLINICAL DATA: This is the patient's initial encounter. Patient reports that signs and symptoms have been present for 1 day and indicates a pain score of Nonresponsive. MEDICAL/SURGICAL HISTORY: Stroke. None. COMPARISON: [facility] [place], CHEST SINGLE AP, 11/11/2017. . FINDINGS: The right pleural effusion appears smaller since the prior exam. Cardiomegaly has not changed. NG tub e is present with tip in the stomach. Right IJ line is present with tip overlapping the SVC. ET tube is present with tip overlapping approximately 3 cm above the tima. Perivascular pulmonary edema is seen. Left lung base opacity is present may be due to a combination of consolidation and or pleural e ffusion. There is no evidence for pneumothorax. CONCLUSION: Lines and tubes placed with reduction in size of the right pleural effusion, otherwise not significan tly changed. Electronically signed by: Glenys Casillas MD 11/11/2017 5:47 PM EDT
[2017-11-11] MEDS ORDERED: LEVOFLOXACIN EACH EYE SCH (18:00)
[2017-11-11] MEDS ORDERED: TERBUTALINE INJ 1 MG/ML AMP SQ PRN (18:00)
[2017-11-11] MEDS ORDERED: NOREPINEPHRINE-DEXTROSE DRIP 250 ML IV PRN (18:00)
[2017-11-11] MEDS ORDERED: fentaNYL DRIP 250 ML IV PRN (18:00)
[2017-11-11] MEDS: metroNIDAZOLE 500 MG INJ 100 ML IV SCH (18:50)
--- NOTE | 2017-11-11 19:33 | PD.PROCEDR ---
Procedure Note Procedure DATE: 11/11/17 PROCEDURE: Left radial art line placement INDICATION: Shock, unable to obtain blood pressure by cuff DETAILS OF PROCEDURE Bakari test was performed and there was adequate collateral circulation. The skin was cleansed with Chloraprep. Additional barrier precautions included large sterile drape, sterile gloves, sterile gown, face mask, and hat. Under direct ultrasound guidance and on the second attempt, the artery was accessed with an Arrow 20 gauge catheter kit . A flash of bright red blood was obtained and guide wire was advanced. Using Seldinger technique, 20 gauge arterial catheter was advanced and needle and guidewire were removed. The catheter was connected to a transducer line and flushed with saline. The video monitor displayed normal arterial wave forms. The catheter was secured with 2-0 silk. A sterile dressing with antibiotic disc was applied. ESTIMATED BLOOD LOSS: minimal COMPLICATIONS: None Yenifer Higuera MD Nov 11, 2017 19:33
[2017-11-11] MEDS ORDERED: IOHEXOL 350 MG/ML 10 ML VIAL (for RAD DIAG) IVCONTRAST ONE (19:36)
--- NOTE | 2017-11-11 19:43 | RADRPT ---
EXAM DATE: 11/11/2017 7:35 PM EDT AGE/SEX: 81 years / Female INDICATIONS: Low oxygen saturation; patient found unresponsive. CLINICAL DATA: This is the patient's initial encounter. Patient reports that signs and symptoms have been present for 1 day and indicates a pain score of Nonresponsive. MEDICAL/SURGICAL HISTORY: Cerebrovascular disease. Cardiovascular disease. Hypertension. Atrial fibrillation, hypothyroidism Hysterectomy. RADIATION DOSE: 9.39 CTDI (mGy) COMPARISON: No prior exams available for comparison. TECHNIQUE: Volumetric scanning was performed using a multi-row detector CT scanner during bolus infu madonna of 65 ml Omnipaque 350 (iohexol) nonionic water-soluble contrast as a single exam dose. The kianna a was post processed with a variety of visualization algorithms including full volume maximum intensi ty projection and sliding thin slab reformation. Using automated exposure control and adjustment of the mA and/or kV according to patient size, radiation dose was kept as low as reasonably achievable t o obtain optimal diagnostic quality images. FINDINGS: Pulmonary Arteries: No filling defects are seen in the pulmonary arteries out to the subsegmental ve ssels. The left and right pulmonary arteries are normal in diameter. Lung: There is increased density in the lower lobes bilaterally adjacent to the effusions likely rel ated to atelectasis. There is a mosaic attenuation pattern typically seen with interstitial disease a nd/or air trapping. There is scattered emphysematous bulla. Effusion: There is a moderate to large right pleural effusion and a mild left pleural effusion. Mediastinum: No evidence of mediastinal or hilar adenopathy. Other: The axilla is unremarkable. CONCLUSION: 1. No pulmonary embolus. 2. Bilateral pleural effusions being moderate to large on the right and mild on the left. 3. Suspected atelectasis at the posterior lower lobes bilaterally. 4. Scattered mosaic attenuation pattern typically seen with interstitial disease and/or air trapping . Electronically signed by: Peter Doty MD 11/11/2017 7:42 PM EDT
[2017-11-11] MEDS: RESP: ALBUTEROL 2.5 MG/IPRATROPIUM 0.5 MG NEB (SCH) NEB ×2 (19:44→23:24)
[2017-11-11] MEDS ORDERED: MIDAZOLAM HCL 2 MG/2 ML VIAL IV PUSH PRN (20:00)
[2017-11-11] MEDS: CHLORHEXIDINE 0.12% (ORAL KIT) 15 ML CUP MT SCH (20:00)
[2017-11-11] MEDS ORDERED: CHLORHEXIDINE GLUCONATE 2 % 1 PACK (2 CLOTHS)(extra cloths) TOPICAL PRN (20:00)
[2017-11-11] MEDS ORDERED: DEXTROSE 50% IN WATER 50 ML VIAL(D50) IV PUSH PRN (20:15)
[2017-11-11] MEDS ORDERED: GLUCAGON 1 MG/ML VIAL OTHER PRN (20:15)
[2017-11-11] MEDS: LACTATED RINGER'S 1000 ML INJ 1,000 ML IV SCH (20:34)
[2017-11-11] MEDS: PROPOFOL 1000 MG/100 ML INJ 100 ML IV PRN (20:41)
[2017-11-11] MEDS: CEFEPIME INJ 2,000 MG in SODIUM CHLORIDE 0.9% INJ 100 ML IV SCH (20:41)
[2017-11-11] MEDS: HEPARIN-D5W 25,000 U/250 ML 250 ML IV PRN (20:44)
[2017-11-11] MEDS: SODIUM CHLORIDE 0.9% FLUSH 10 ML FLUSH IV FLUSH SCH (20:45)
[2017-11-11] MEDS: FAMOTIDINE 20 MG/2 ML VIAL IV PUSH SCH (20:45)
[2017-11-11] MEDS: TIMOLOL MALEATE 0.25% OPHT SOLN 5 ML BTL EACH EYE SCH (21:00)
[2017-11-11] MEDS ORDERED: METOPROLOL TARTRATE 50 MG TAB PO SCH (22:00)
[2017-11-12] VITALS (24 sets, daily range): BP systolic 93–136; BP diastolic 60–90; PULSE 75–105; RESP 16–25; TEMP 95.4–102.2; O2SAT 87–100
[2017-11-12] MEDS: metroNIDAZOLE 500 MG INJ 100 ML IV SCH ×3 (00:54→17:46)
[2017-11-12] MEDS: RESP: ALBUTEROL 2.5 MG/IPRATROPIUM 0.5 MG NEB (SCH) NEB ×6 (03:22→23:27)
[2017-11-12] MEDS: CHLORHEXIDINE GLUCONATE 2 % 1 PACK (2 CLOTHS)(taper/protocol) TOPICAL SCH (04:00)
[2017-11-12] MEDS: methylPREDNISolone SOD SUCC 125 MG/2 ML VIAL IV PUSH SCH ×4 (04:00→20:58)
[2017-11-12] MEDS: CEFEPIME INJ 2,000 MG in SODIUM CHLORIDE 0.9% INJ 100 ML IV SCH ×3 (04:00→19:55)
[2017-11-12 05:23] LABS: AUTOMATED NEUTROPHIL # 5.2 TH/MM3 (1.8-7.7); HEMATOCRIT 39.4 % (35.0-46.0); HEMOGLOBIN 12.4 GM/DL (11.6-15.3); LYMPH % 6.4 % (9.0-44.0); LYMPHOCYTE # 0.4 TH/MM3 (1.0-4.8); MEAN CELL VOLUME 78.8 FL (80.0-100.0); MEAN CORPUSCULAR HEMOGLOBIN 24.8 PG (27.0-34.0); MEAN CORPUSCULAR HGB CONC 31.5 % (32.0-36.0); MEAN PLATELET VOLUME 7.9 FL (7.0-11.0); MONO % 4.8 % (0.0-8.0); MONOCYTE # 0.3 TH/MM3 (0-0.9); NEUT % 88.8 % (16.0-70.0); PLATELET COUNT 221 TH/MM3 (150-450); RED CELL DISTRIBUTION WIDTH 18.6 % (11.6-17.2); WHITE BLOOD COUNT 5.9 TH/MM3 (4.0-11.0)
[2017-11-12 05:57] LABS: ALKALINE PHOSPHATASE 69 U/L (45-117); ALT (GPT) 20 U/L (10-53); AST (GOT) 20 U/L (15-37); BICARBONATE 20.7 MEQ/L (21.0-32.0); BLOOD UREA NITROGEN 20 MG/DL (7-18); CALCIUM 7.5 MG/DL (8.5-10.1); CHLORIDE 112 MEQ/L (98-107); CREATININE 0.54 MG/DL (0.50-1.00); GLOMERULAR FILTRATION RATE 109 ML/MIN (>89); GLUCOSE,RANDOM 106 MG/DL (74-106); MAGNESIUM 1.8 MG/DL (1.5-2.5); PHOSPHORUS 2.4 MG/DL (2.5-4.9); SODIUM (NA) 148 MEQ/L (136-145); TOTAL BILIRUBIN ADULT 0.9 MG/DL (0.2-1.0); TOTAL PROTEIN 4.8 GM/DL (6.4-8.2); TROPONIN I LESS THAN 0.02 NG/ML (0.02-0.05)
[2017-11-12] MEDS: INSULIN ASPART SUPPLEMENTAL SCALE SQ SCH ×5 (06:00→23:01)
[2017-11-12] MEDS: LACTATED RINGER'S 1000 ML INJ 1,000 ML IV SCH (07:32)
[2017-11-12] MEDS: CHLORHEXIDINE 0.12% (ORAL KIT) 15 ML CUP MT SCH ×2 (08:04→19:55)
[2017-11-12] MEDS: FAMOTIDINE 20 MG/2 ML VIAL IV PUSH SCH ×2 (08:04→19:54)
[2017-11-12] MEDS: TIMOLOL MALEATE 0.25% OPHT SOLN 5 ML BTL EACH EYE SCH ×2 (08:05→20:57)
[2017-11-12] MEDS: SODIUM CHLORIDE 0.9% FLUSH 10 ML FLUSH IV FLUSH SCH ×2 (08:05→20:58)
[2017-11-12] MEDS ORDERED: amLODIPine BESYLATE 5 MG TAB PO SCH (09:00)
--- NOTE | 2017-11-12 09:48 | RADRPT ---
EXAM DATE: 11/12/2017 9:39 AM EDT AGE/SEX: 81 years / Female INDICATIONS: Increased lab values. CLINICAL DATA: This is the patient's initial encounter. Patient reports that signs and symptoms have been present for 1 day and indicates a pain score of Nonresponsive. MEDICAL/SURGICAL HISTORY: Hypothyroidism. Hypercholesterolemia. Hypertension. Cerebrovascula r accident. Anticoagulant therapy. Irregular heartbeat. Arthritis. Hysterectomy. section. Bilateral hip replacement. Left knee replacement. COMPARISON: No prior exams available for comparison. MEASUREMENTS: Right Kidney:__10.1 x 4.1 x 5.0 cm cm Left Kidney:__9.5 x 5.2 x 4.5 cm cm FINDINGS: Ascites is present. Right Kidney: Normal in appearance. Left Kidney: Normal appearance. Bladder: Hills catheter within urinary bladder which is decompressed. CONCLUSION: 1. Ascites otherwise unremarkable. Electronically signed by: Terry Marsh MD 11/12/2017 9:47 AM EDT
--- NOTE | 2017-11-12 14:38 | HHI.CCPN ---
Subjective Remarks/Hospital Course 81-year-old female presents from home via EMS due to respiratory distress. She was most recently admitted to [facility] 06/15/17 due to acute ischemic stroke and underwent IR embolectomy. She also has a history of muscular dystrophy, glaucoma, hypertension, hyperlipidemia, hypothyroidism, atrial fibrillation on chronic anticoagulation with Eliquis. After her stroke she was treated at [facility] and was discharged to home July 10, 2017. Her states she has generally been getting "weaker" over the last couple of weeks and has not been eating as much. She has complained of nausea but has not had any vomiting, diarrhea, abdominal pain, cough, fever, headache or chest pain. She has had decreased mobility over the last couple of weeks. Apparently she was able to use a walker when she left [place] but now she has had difficulty transferring to a wheelchair. Because of her decreased mobility a Hills was placed on Thursday 11/09. She also has decubitus ulcers on her buttocks and was receiving home health care to help manage her wounds. Earlier this morning home health came to assist her with her bath and reportedly sats were in the 80s. Subsequently home health came to assist with managing her wounds and reportedly sats were in the 50s. She was brought to the emergency department where she was lethargic on arrival and had acute hypercapnic respiratory failure with pH 7.22/PaCO2 of 76/PaO2 of 70 on 5 L nasal cannula. Chest x-ray demonstrated opacification of the right lower lobe which may be a combination of consolidation and effusion. She was placed on BiPAP and was initially going to be admitted to the hospitalist service on [facility].. She became hypotensive and unresponsive and so she was intubated. There is been difficulty obtaining cuff pressures and radial art line was attempted but unsuccessful. She has been started on Levophed. She has received normal saline total of 2 L bolus. I have placed a central line and art line. [place] [facility] [place]ive: 11/12 Off levophed. R pleural effusion needs drainage but waiting 48 hours after eliquis. UOP improved. Initiating tube feeds. Objective Vital Signs Date Time Temp Pulse Resp B/P (MAP) Pulse Ox O2 Delivery O2 Flow Rate FiO2 11/12/17 14:00 87 11/12/17 12:00 99.3 11/12/17 12:00 60 11/12/17 12:00 16 114/67 (83) 100 125/73 (90) 11/11/17 18:40 Ventilator 11/11/17 12:55 5.00 Intake and Output 11/12/17 11/12/17 11/13/17 08:00 16:00 00:00 Intake Total 1547.3 ml 200 ml Output Total 1000 ml Balance 547.3 ml 200 ml Result Diagram: 11/12/17 0500 11/12/17 0500 Other Results Microbiology Date/Time Source Procedure Growth Status 11/11/17 13:45 Urine Catheterized Urine Legionella Antigen - Final PRESUMPTIVE NEGATIVE FOR LEGIONELLA P... Complete 11/11/17 13:45 Urine Catheterized Urine Streptococcus pneumoniae Antigen (M - Final PRESUMPTIVE NEGATIVE FOR STREPTOCOCCU... Complete Laboratory Tests Test 11/11/17 17:08 Blood Gas Puncture Site LT BRACHIAL Blood Gas Patient Temperature 98.6 Blood Gas HCO3 24 mmol/L (22-26) Blood Gas Base Excess -0.5 mmol/L (-2-2) Blood Gas Oxygen Saturation 97 % (90-100) Arterial Blood pH 7.36 (7.380-7.420) Arterial Blood Partial Pressure CO2 44 mmHg (38-42) Arterial Blood Partial Pressure O2 116 mmHG (61-120) Arterial Blood Oxygen Content 17.4 Vol % (12.0-20.0) Arterial Blood Carboxyhemoglobin 1.5 % (0-4) Arterial Blood Methemoglobin 0.5 % (0-2) Blood Gas Hemoglobin 12.6 G/DL (12.0-16.0) Oxygen Delivery Device VENTILATOR Blood Gas Ventilator Setting PRVC/AC Blood Gas Inspired Oxygen 100 % Objective Remarks GENERAL: Elderly under nourished appearing frail female who is orotracheally intubated. SKIN: Skin perfused. HEAD: Atraumatic. Normocephalic. EYES: Right pupil is pinpoint, left pupil is 2 mm sluggishly reactive to 1 mm. Bilateral conjunctive is extremely erythematous and inflamed appearing. No exudate. ENT: No nasal bleeding or discharge. Mucous membranes dry NECK: Trachea midline. No JVD. CARDIOVASCULAR: Irregular, no murmurs rubs or gallops appreciated. RESPIRATORY: Orotracheally intubated on mechanical ventilation. No significant secretions with suctioning. Diminished breath sounds bilaterally. No wheezes rales GASTROINTESTINAL: Abdomen soft, non-tender, nondistended. Bowel sounds hypoactive. Vertical scar infraumbilical. : Hills in place with yellow urine output. MUSCULOSKELETAL: Extremities without clubbing, cyanosis 2+ edema bilateral lower extremities below the knee. NEUROLOGICAL: Eyes are spontaneously open and states that she often sleeps this way. Withdraws with all extremities to noxious stimuli. Not following commands or purposeful. Now on propofol for sedation A/P Assessment and Plan NEURO: Muscular dystrophy Prior stroke June 2017 Acute encephalopathy Propofol for sedation. Target RASS -2 CT brain 11/11 - no acute abnormality RESP: Acute hypercapnic respiratory failure Bilateral pleural effusions, Bilateral consolidations/atelectasis PRVC, ventilator bundle, DuoNeb every 4 hours, albuterol every 2 hours as needed. Initial CXR with bibasilar opacification that appears secondary to consolidation and bilateral effusions. Aeration appeared better in RLL on post intubation CXR. ETT in satisfactory position R pleural effusion appears amenable to bedside drainage, will perform tomorrow afternoon. Eliquis on hold. CV: Atrial fibrillation Pulmonary Hypertension Severe TR Bilateral pleural effusions Serial torponin negative. 2D echo from 06/16/17mild concentric LVH. EF 60-65%. Mild left atrial dilation. Moderate thickening of mitral valve. Severe tricuspid regurg. Pulmonary artery pressure 52.8 mm Follow-up 2D echo Has received 2 L normal saline in the emergency department. Levophed to maintain mean arterial pressure greater than 65. KVO IVF. She is chronically on Eliquis which we will hold while she is critically ill in anticipation and requiring thoracentesis. Use heparin drip as she is at high risk of stroke. Last dose of eliquis was morning 11/11. Held Norvasc 5 mg p.o. daily and metoprolol 75 mill grams p.o. every 8 hours due to hypotension GI: Insert orogastric tube. Initiate Jevity 1.5 and advance to goal rate of 45 mL/hr. F/u nutrition rec. FEN/RENAL: Acute kidney injury Hills in place. She is oliguric. Monitor intake and output. Monitor electrolytes and replace as indicated. Renal ultrasound no hydronephrosis, Urine eosinophil negative. CPK normal ID: UTI Aspiration versus community-acquired pneumonia Hills was replaced in the emergency department 11/11 Blood cultures no growth to date. Urine culture with group D enterococcus. Will re-collect urinalysis. Urine Legionella and pneumococcal antigen pending. Sputum culture pending. Received ceftriaxone and azithromycin in the emergency department. We will continue coverage with cefepime, azithromycin and will cover for with Flagyl due to concern for aspiration. Conjunctivitis/probable keratitis secondary to inability to close eyes completely. Patient previously refused surgical intervention for this Erythromycin ophthalmic twice daily Levofloxacin ocular drops Glaucoma Continue timolol 0.25% ophthalmic each eye every 12 hours HEME: Chronic anticoagulation with Eliquis for atrial fibrillation and history of stroke Hemoglobin normal. Platelet count normal. Hold Eliquis. Heparin drip as per above ENDO: Monitor glucose every 6 hours and initiate low-dose insulin sliding scale as indicated. Hypothyroidism TSH is elevated. Synthroid dose unknown, will clarify with PROPH: SCDs for DVT prophylaxis. Heparin drip as per above. Famotidine for stress ulcer prophylaxis ACCESS: Right IJ central venous line placed 6/8 #2. Left radial art line +6/8 #2. Her states she previously made advanced directives but they cannot be obtained because they are in a home in [place] and they no longer have access to them. He says he does not know which hospital she was in when she made them and does not believe that they were drawn up by an workers compensation attorney that would have a copy. He states that he is familiar with her wishes and that she would wish to be full code but did not want prolonged life support "if there was no hope of getting better". Full code Discussed with Dr. Gray. Level 3 f/u Yenifer Higuera MD Nov 12, 2017 14:38
--- NOTE | 2017-11-12 16:37 | MB ---
cc: Ellis Gray MD, Dany A MD DATE: 11/12/2017 REASON FOR CONSULTATION: Pleural effusion, respiratory failure. HISTORY OF PRESENT ILLNESS: The patient is a 81-year-old female who came into the hospital because of respiratory distress. She was found to have a respiratory failure. She needed to be intubated. The patient is currently on mechanical ventilator. She was found to have significant pleural effusion. She does have a history of muscular dystrophy, hypertension, hyperlipidemia and history of acute ischemic stroke in 06/2017. The patient is currently on anticoagulation with Eliquis. Right now, she is intubated on mechanical ventilator. REVIEW OF SYSTEMS: Could not be obtained, the patient is intubated. PAST MEDICAL HISTORY: Possible for conjunctivitis, muscular dystrophy, glaucoma, hypothyroidism, hypertension, hyperlipidemia, history of claustrophobia, arthritis, atrial fibrillation, tricuspid regurgitation. PAST SURGICAL HISTORY: Positive for bilateral hip replacement surgery, basal cell cancer resection, left knee arthroplasty, left MCA angiography and embolectomy in June, history of hysterectomy and oophorectomy. She did have biopsy of the right breast about 10-15 years ago. MEDICATIONS: Reviewed. She is on Norvasc, Lopressor, Eliquis, erythromycin ophthalmic Timolol. FAMILY HISTORY: Positive for fibromyalgia and muscular dystrophy. SOCIAL HISTORY: The patient was never a smoker, drinks alcohol socially. . PHYSICAL EXAMINATION: VITAL SIGNS: Shows temperature 99.7, pulse 59, respiratory rate 16, blood pressure 180/67. She is sating 100% on 60% FiO2. HEAD: Atraumatic. ET tube in place. NECK: Trachea midline. LUNGS: Decreased breath sounds over both bases, more on the right side. HEART: S1, S2. ABDOMEN: Soft, nontender. EXTREMITIES: Positive for edema. No cyanosis. NEUROLOGIC: The patient is deeply sedated on mechanical ventilator. LABORATORY DATA: Reviewed. WBC 5.9, hemoglobin 12.4, platelets 221. ABG showed pH 7.36, pCO2 of 44, pO2 is 116. Sodium is 148, potassium is 3.6, BUN is 20, creatinine 0.54, albumin 2. IMAGING STUDIES: X-rays reviewed. CAT scan reviewed. It does have bilateral pleural effusion significantly on the right side. ASSESSMENT AND PLAN: 1. Ventilator-dependent respiratory failure. 2. Bilateral pleural effusions, more on the right side. 3. Pulmonary hypertension. 4. Severe tricuspid regurgitation. 5. Muscle dystrophy. 6. Coagulopathy secondary to Eliquis. I do believe overall the patient is stable. I do believe it is medically necessary to proceed and do a thoracentesis, which was already ordered. Once interventional radiology can do that and after the Eliquis has been on hold, we will send all the fluids for appropriate studies. I agree with antibiotic coverage. Continue attempts to wean off the mechanical ventilator as per protocol. I discussed this case with the a r collections rep, Dr. Higuera. Also, I discussed the case in details at the bedside with the as well. I would like to thank you for this consultation and I will continue to follow. MD HYUN Jones/ , 12:07 PM , 04:36 PM
[2017-11-12] MEDS ORDERED: cefTRIAXone INJ 1,000 MG in SODIUM CHLORIDE 0.9% INJ 100 ML IV SCH (17:00)
[2017-11-12] MEDS: PROPOFOL 1000 MG/100 ML INJ 100 ML IV PRN (17:14)
[2017-11-12] MEDS: AZITHROMYCIN INJ 500 MG in SODIUM CHLOR 0.9% 250 ML INJ 250 ML IV SCH (17:46)
[2017-11-12 19:11] LABS: BACTERIA, URINE RARE /hpf; BILIRUBIN, URINE NEG (NEG); BLOOD, URINE NEG (NEG); GLUCOSE,URINE NEG (NEG); HYALINE CAST, URINE 2 /lpf (RARE); KETONE, URINE 40 mg/dL (NEG); MUCUS URINE FEW /lpf (OCC); NITRITE,URINE NEG (NEG); SQUAMOUS EPITHELIAL CELL URINE 1 /hpf (0-5); URINE COLOR YELLOW (YELLW/STRAW); URINE LEUKOCYTE ESTERASE SMALL (NEG)
[2017-11-12] MEDS: ERYTHROMYCIN 0.5% OPTH OINT 3.5 GM TUBO EACH EYE SCH (20:59)
[2017-11-13] VITALS (22 sets, daily range): BP systolic 89–139; BP diastolic 54–73; PULSE 85–113; RESP 16–30; TEMP 98.6–99.4; O2SAT 100
[2017-11-13] MEDS: PROPOFOL 1000 MG/100 ML INJ 100 ML IV PRN ×3 (00:48→22:36)
[2017-11-13] MEDS: metroNIDAZOLE 500 MG INJ 100 ML IV SCH ×3 (01:29→17:32)
[2017-11-13] MEDS: methylPREDNISolone SOD SUCC 125 MG/2 ML VIAL IV PUSH SCH ×4 (03:43→21:43)
[2017-11-13] MEDS: CEFEPIME INJ 2,000 MG in SODIUM CHLORIDE 0.9% INJ 100 ML IV SCH ×3 (03:44→21:43)
[2017-11-13] MEDS: CHLORHEXIDINE GLUCONATE 2 % 1 PACK (2 CLOTHS)(taper/protocol) TOPICAL SCH (03:44)
[2017-11-13] MEDS: RESP: ALBUTEROL 2.5 MG/IPRATROPIUM 0.5 MG NEB (SCH) NEB ×5 (04:25→20:33)
[2017-11-13] MEDS: INSULIN ASPART SUPPLEMENTAL SCALE SQ SCH ×3 (05:53→18:00)
[2017-11-13 07:56] LABS: AUTOMATED NEUTROPHIL # 5.9 TH/MM3 (1.8-7.7); BASOPHIL % 0.1 % (0.0-2.0); HEMATOCRIT 37.6 % (35.0-46.0); LYMPH % 2.4 % (9.0-44.0); LYMPHOCYTE # 0.2 TH/MM3 (1.0-4.8); MEAN CORPUSCULAR HEMOGLOBIN 24.6 PG (27.0-34.0); MONO % 7.5 % (0.0-8.0); MONOCYTE # 0.5 TH/MM3 (0-0.9); PLATELET COUNT 248 TH/MM3 (150-450); RED BLOOD COUNT 4.89 MIL/MM3 (4.00-5.30); WHITE BLOOD COUNT 6.5 TH/MM3 (4.0-11.0)
[2017-11-13] MEDS: TIMOLOL MALEATE 0.25% OPHT SOLN 5 ML BTL EACH EYE SCH ×2 (08:05→21:44)
[2017-11-13] MEDS: ERYTHROMYCIN 0.5% OPTH OINT 3.5 GM TUBO EACH EYE SCH ×2 (08:05→21:00)
[2017-11-13] MEDS: FAMOTIDINE 20 MG/2 ML VIAL IV PUSH SCH ×2 (08:05→21:43)
[2017-11-13] MEDS: SODIUM CHLORIDE 0.9% FLUSH 10 ML FLUSH IV FLUSH SCH ×2 (08:05→21:45)
[2017-11-13] MEDS: CHLORHEXIDINE 0.12% (ORAL KIT) 15 ML CUP MT SCH ×2 (08:06→20:00)
[2017-11-13 08:22] LABS: BICARBONATE 25.2 MEQ/L (21.0-32.0); CALCIUM 7.2 MG/DL (8.5-10.1); CREATININE 0.71 MG/DL (0.50-1.00)
[2017-11-13 08:38] LABS: CALCIUM-PROTEIN CORRECTED 8.5 MG/DL (8.5-10.1); TOTAL PROTEIN 4.8 GM/DL (6.4-8.2)
[2017-11-13] MEDS ORDERED: POTASSIUM CHLORIDE 25 MEQ EFFERVESCENT TAB PO PRN (10:45)
[2017-11-13] MEDS ORDERED: MAGNESIUM SULFATE INJ 4 GM in SODIUM CHLORIDE 0.9% INJ 92 ML IV PRN (10:45)
[2017-11-13] MEDS ORDERED: POTASSIUM PHOSPHATE MONOBASIC 500 MG TAB PO PRN (10:45)
[2017-11-13] MEDS ORDERED: POTASSIUM CHLOR 20 MEQ PREMIX 100 ML IV PRN (10:45)
[2017-11-13] MEDS ORDERED: POTASSIUM PHOSPHATE INJ 30 MMOL in SODIUM CHLOR 0.9% 250 ML INJ 250 ML IV PRN (10:45)
[2017-11-13] MEDS ORDERED: SODIUM PHOSPHATE INJ 30 MMOL in SODIUM CHLOR 0.9% 250 ML INJ 240 ML IV PRN (10:45)
[2017-11-13] MEDS ORDERED: MAGNESIUM OXIDE 400 MG TAB PO PRN (10:45)
[2017-11-13] MEDS ORDERED: POTASSIUM PHOSPHATE MONOBASIC 500 MG TAB PO/TUBE PRN (10:45)
[2017-11-13] MEDS ORDERED: POTASSIUM CHLOR 40 MEQ PREMIX 100 ML IV PRN ×2 (10:45)
[2017-11-13] MEDS ORDERED: MAGNESIUM SULFATE INJ 2 GM in SODIUM CHLORIDE 0.9% INJ 96 ML IV PRN (10:45)
[2017-11-13] MEDS: POTASSIUM CHLOR 20 MEQ PREMIX 100 ML IV PRN ×4 (11:17→18:19)
--- NOTE | 2017-11-13 12:03 | HHI.PR ---
Subjective Remarks Same No significant events overnight Thoracentesis still pending Objective Vital Signs Date Time Temp Pulse Resp B/P (MAP) Pulse Ox O2 Delivery O2 Flow Rate FiO2 11/13/17 11:23 100 40 11/13/17 10:00 90 11/13/17 08:00 102 11/13/17 08:00 99.4 102 30 109/63 (78) 100 134/69 (90) 11/13/17 08:00 99.3 11/13/17 08:00 40 11/13/17 07:44 100 40 11/13/17 07:00 99.1 95 16 119/61 (80) 100 11/13/17 06:00 88 11/13/17 04:25 100 40 11/13/17 04:00 99.1 96 16 98/61 (73) 100 109/63 (78) 11/13/17 04:00 96 11/13/17 04:00 99.4 11/13/17 04:00 40 11/13/17 02:00 92 11/13/17 00:00 98.7 11/13/17 00:00 60 11/13/17 00:00 91 11/13/17 00:00 98.6 91 17 95/54 (68) 100 89/60 (70) 11/12/17 23:28 100 50 11/12/17 22:00 89 11/12/17 20:15 100 50 11/12/17 20:00 97.5 89 18 101/63 (76) 100 93/63 (73) 11/12/17 20:00 97.5 11/12/17 20:00 89 11/12/17 20:00 60 11/12/17 18:00 97.5 93 21 117/73 (88) 89 116/77 (90) 11/12/17 18:00 93 11/12/17 17:00 97.5 96 16 117/78 (91) 100 11/12/17 16:13 96 60 11/12/17 16:00 97.5 11/12/17 16:00 105 11/12/17 16:00 60 11/12/17 16:00 97.7 105 23 129/89 (102) 97 136/90 (105) 11/12/17 15:00 98.1 88 18 109/71 (84) 100 11/12/17 14:00 98.1 87 16 120/73 (89) 100 123/77 (92) 11/12/17 14:00 87 11/12/17 13:00 99.1 82 16 121/73 (89) 100 I/O 11/12/17 11/12/17 11/12/17 11/13/17 11/13/17 11/13/17 07:00 15:00 23:00 07:00 15:00 23:00 Intake Total 1472.3 ml 275 ml 1350 ml 646 ml Output Total 1000 ml 250 ml 200 ml Balance 472.3 ml 275 ml 1100 ml 446 ml Intake IV Total 1352.3 ml 275 ml 1350 ml 300 ml Tube Irrigant 120 ml 296 ml Other 50 ml Output Urine Total 1000 ml 250 ml 200 ml # Bowel Movements 0 0 Result Diagram: 11/13/1773911/13/17739 Objective Remarks Physical exam: General appearance: Intubated Head and neck examination: ET tube pump Neck: [supple trachea midline] Lungs: No wheezing heard, significant decrease of breath sounds over the right side Heart: [normal S1-S2] Abdomen: [soft nontender positive bowel sounds] Extremities: [no significant edema no cyanosis] Neurological examination: Sedated on mechanical ventilator Skin: [no rashes seen] Assessment and Plan Assessment and Plan 1. Ventilator-dependent respiratory failure. 2. Bilateral pleural effusions, more on the right side. 3. Pulmonary hypertension. 4. Severe tricuspid regurgitation. 5. Muscle dystrophy. 6. Coagulopathy secondary to Eliquis. Continue current plan of care Thoracentesis when okay by interventional radiology most likely in 1-2 days because the patient was on Eliquis Medical care as per the splicer operator We will continue to follow Elils Gray MD Nov 13, 2017 12:03
--- NOTE | 2017-11-13 15:14 | EKG ---
Date Performed: 11/11/2017 Time Performed: 12:30:51 PTAGE: 81 years EKG: ATRIAL FIBRILLATION POSSIBLE ANTERIOR MYOCARDIAL INFARCTION ABNORMAL RHYTHM ECG PREVIOUS TRACING : 06/15/2017 12.13 Since the previous tracing, no significant change noted DOCTOR: Roscoe Knight Interpretating Date/Time 11/13/2017 15:12:19
[2017-11-13] MEDS: AZITHROMYCIN INJ 500 MG in SODIUM CHLOR 0.9% 250 ML INJ 250 ML IV SCH (16:28)
--- NOTE | 2017-11-13 18:25 | PD.PROCEDR ---
Procedure Note Procedure Procedure: Right pigtail chest tube placement Indication: Right pleural effusion Details of procedure: Informed consent was obtained from patient's after discussion of risks , benefits, alternatives. The patient was positioned in semirecumbent position with arm secured overhead. Ultrasound was used to visualize fluid pocket. The chest wall was cleaned with ChloraPrep x3. Regional sterile drapes were applied. 1% lidocaine was used for local anesthesia and injected into the subcutaneous and deep muscle tissues. An introducer needle was advanced over posterior rib under direct ultrasound guidance until bloody pleural fluid was aspirated. Wire was advanced. A 3mm skin incision was made with a scalpel blade. 8 Czech pigtail catheter was advanced over the wire. Bloody pleural fluid was aspirated and sent for pleural fluid studies. Catheter was connected to Pleur-evac at -40 cm suction. There was no airleak. There was 650 mL of serous fluid output initially. Estimated blood loss: <5 ml Complications: None. Stat chest x-ray is pending. Yenifer Higuera MD Nov 09, 2017 12:07 Yenifer Higuera MD Nov 13, 2017 18:25
--- NOTE | 2017-11-13 19:08 | RADRPT ---
EXAM DATE: 11/13/2017 6:58 PM EDT AGE/SEX: 81 years / Female INDICATIONS: S/P chest tube placement. CLINICAL DATA: This is the patient's initial encounter. Patient reports that signs and symptoms have been present for 1 day and indicates a pain score of Nonresponsive. MEDICAL/SURGICAL HISTORY: . Hypothyroidism. Hypercholesterolemia. Hypertension. Cerebrovascular accident. Anticoagulant therapy. Irregular heartbeat. Arthritis. . Hysterectomy. section. Bilateral hip replacement. Left knee replacement. COMPARISON: [facility] [place], 11/11/2017. . FINDINGS: Endotracheal tube in good position. Nasogastric tube entering stomach. Right central line in right at rium. Improved basilar airspace disease and pleural effusions since November 11. Small caliber right-sided chest tube present without pneumothorax. Left retrocardiac consolidation persists. CONCLUSION: Placement of small-caliber right chest tube with marked improvement in right pleural effusion. Small left effusion with basilar consolidation. Endotracheal tube, nasogastric tube and right central line unchanged. Electronically signed by: Casper Mason MD 11/13/2017 7:06 PM EDT
[2017-11-13 20:27] LABS: TOTAL PROTEIN,PLEURAL FLUID 1.9 GM/DL
[2017-11-13 21:15] LABS: PLEURAL FLUID HISTIOCYTES 10 %; PLEURAL FLUID LYMPHS 78 %; PLEURAL FLUID MESOTHELIAL 1 %; PLEURAL FLUID POLYS (SEGS) 11 %; PLEURAL FLUID RBC 303 /MM3 (0-0); PLEURAL FLUID WBC 35 /MM3 (0-10)
--- NOTE | 2017-11-13 21:50 | HHI.CCPN ---
Subjective Remarks/Hospital Course 81-year-old female presents from home via EMS due to respiratory distress. She was most recently admitted to [facility] 06/15/17 due to acute ischemic stroke and underwent IR embolectomy. She also has a history of muscular dystrophy, glaucoma, hypertension, hyperlipidemia, hypothyroidism, atrial fibrillation on chronic anticoagulation with Eliquis. After her stroke she was treated at [facility] and was discharged to home July 10, 2017. Her states she has generally been getting "weaker" over the last couple of weeks and has not been eating as much. She has complained of nausea but has not had any vomiting, diarrhea, abdominal pain, cough, fever, headache or chest pain. She has had decreased mobility over the last couple of weeks. Apparently she was able to use a walker when she left [place] but now she has had difficulty transferring to a wheelchair. Because of her decreased mobility a Hills was placed on Thursday 11/09. She also has decubitus ulcers on her buttocks and was receiving home health care to help manage her wounds. Earlier this morning home health came to assist her with her bath and reportedly sats were in the 80s. Subsequently home health came to assist with managing her wounds and reportedly sats were in the 50s. She was brought to the emergency department where she was lethargic on arrival and had acute hypercapnic respiratory failure with pH 7.22/PaCO2 of 76/PaO2 of 70 on 5 L nasal cannula. Chest x-ray demonstrated opacification of the right lower lobe which may be a combination of consolidation and effusion. She was placed on BiPAP and was initially going to be admitted to the hospitalist service on [facility].. She became hypotensive and unresponsive and so she was intubated. There is been difficulty obtaining cuff pressures and radial art line was attempted but unsuccessful. She has been started on Levophed. She has received normal saline total of 2 L bolus. I have placed a central line and art line. She will be admitted to [facility]. 11/12 Off levophed. R pleural effusion needs drainage but waiting 48 hours after eliquis. UOP improved. Initiating tube feeds. Subjective: 11/13 Held heparin and I performed R pigtail catheter R chest this evening with drainage of >650 serous fluid so far. Will CPAP tomorrow and see if able to extubate. Objective Vital Signs Date Time Temp Pulse Resp B/P (MAP) Pulse Ox O2 Delivery O2 Flow Rate FiO2 11/13/17 20:32 100 35 11/13/17 18:00 88 11/13/17 16:00 98.8 11/13/17 16:00 16 110/64 (79) 113/66 (82) 11/11/17 18:40 Ventilator 11/11/17 12:55 5.00 Intake and Output 11/13/17 11/13/17 11/14/17 08:00 16:00 00:00 Intake Total 646 ml 500 ml 670 ml Output Total 200 ml 1000 ml Balance 446 ml 500 ml -330 ml Result Diagram: 11/13/17 0740 11/13/17 0740 Other Results Microbiology Date/Time Source Procedure Growth Status 11/11/17 13:45 Urine Catheterized Urine Legionella Antigen - Final PRESUMPTIVE NEGATIVE FOR LEGIONELLA P... Complete 11/11/17 13:45 Urine Catheterized Urine Streptococcus pneumoniae Antigen (M - Final PRESUMPTIVE NEGATIVE FOR STREPTOCOCCU... Complete Objective Remarks GENERAL: Elderly under nourished appearing frail female who is orotracheally intubated. SKIN: Skin perfused. HEAD: Atraumatic. Normocephalic. EYES: Right pupil is pinpoint, left pupil is 2 mm sluggishly reactive to 1 mm. Bilateral conjunctive is extremely erythematous and inflamed appearing. No exudate. ENT: No nasal bleeding or discharge. Mucous membranes dry NECK: Trachea midline. No JVD. CARDIOVASCULAR: Irregular, no murmurs rubs or gallops appreciated. RESPIRATORY: Orotracheally intubated on mechanical ventilation. No significant secretions with suctioning. Diminished breath sounds bilaterally. No wheezes rales GASTROINTESTINAL: Abdomen soft, non-tender, nondistended. Bowel sounds hypoactive. Vertical scar infraumbilical. : Hills in place with yellow urine output. MUSCULOSKELETAL: Extremities without clubbing, cyanosis 2+ edema bilateral lower extremities below the knee. NEUROLOGICAL: Eyes are spontaneously open and states that she often sleeps this way. Withdraws with all extremities to noxious stimuli. Not following commands or purposeful. Now on propofol for sedation A/P Assessment and Plan NEURO: Muscular dystrophy Prior stroke June 2017 Acute encephalopathy Propofol for sedation. Target RASS -[address] brain 11/11 - no acute abnormality RESP: Acute hypercapnic respiratory failure Bilateral pleural effusions, Bilateral consolidations/atelectasis PRVC, ventilator bundle, DuoNeb every 4 hours, albuterol every 2 hours as needed. Initial CXR with bibasilar opacification that appears secondary to consolidation and bilateral effusions. Aeration appeared better in RLL on post intubation CXR. ETT in satisfactory position Eliquis held 48 hours and then proceeded with R pigtail catheter. Post-films with much improved aeration. Will f/u pleural fluid studies. CPAP trials in morning and extubate if tolerated Pulmonology following, Dr. Gray. CV: Atrial fibrillation Pulmonary Hypertension Severe TR Serial torponin negative. 2D echo from 06/16/17mild concentric LVH. EF 60-65%. Mild left atrial dilation. Moderate thickening of mitral valve. Severe tricuspid regurg. Pulmonary artery pressure 52.8 mm Follow-up 2D echo Received 2 L normal saline in the emergency department. Levophed to maintain mean arterial pressure greater than 65. Off She is chronically on Eliquis which we will hold while she is critically ill , resume when all procedures done. Using heparin drip as she is at high risk of stroke. Last dose of eliquis was morning 11/11. Held Norvasc 5 mg p.o. daily and metoprolol 75 mill grams p.o. every 8 hours due to hypotension GI: Orogastric tube. Jevity 1.5 , increase goal rate to 50 mL/h per nutrition recommendations FEN/RENAL: Acute kidney injury Hills in place. Monitor intake and output. Monitor electrolytes and replace as indicated. Renal ultrasound no hydronephrosis, Urine eosinophil negative. CPK normal ID: UTI Aspiration versus community-acquired pneumonia Hills was replaced in the emergency department 11/11 Blood cultures no growth to date. Urine culture with group D enterococcus. Will re-collect urinalysis. Urine Legionella and pneumococcal antigen pending. Sputum culture NGTD. Received ceftriaxone and azithromycin in the emergency department. We will continue coverage with cefepime, azithromycin. Initially on flagyl for ? aspiration but will d/c this. Conjunctivitis/probable keratitis secondary to inability to close eyes completely. Patient previously refused surgical intervention for this Erythromycin ophthalmic twice daily Levofloxacin ocular drops Glaucoma Continue timolol 0.25% ophthalmic each eye every 12 hours HEME: Chronic anticoagulation with Eliquis for atrial fibrillation and history of stroke Hemoglobin normal. Platelet count normal. Hold Eliquis. Heparin drip as per above ENDO: Monitor glucose every 6 hours and initiate low-dose insulin sliding scale as indicated. Hypothyroidism TSH is elevated. Synthroid dose unknown, will clarify with PROPH: SCDs for DVT prophylaxis. Heparin drip as per above. Famotidine for stress ulcer prophylaxis ACCESS: Right IJ central venous line placed 11/11 #3. Left radial art line +11/11 -->d/c today . Her states she previously made advanced directives but they cannot be obtained because they are in a home in [place] and they no longer have access to them. He says he does not know which hospital she was in when she made them and does not believe that they were drawn up by an district attorney that would have a copy. He states that he is familiar with her wishes and that she would wish to be full code but did not want prolonged life support "if there was no hope of getting better". Full code Level 3 f/u Yenifer Higuera MD Nov 13, 2017 21:50
[2017-11-14] VITALS (25 sets, daily range): BP systolic 91–128; BP diastolic 57–81; PULSE 87–113; RESP 16–27; TEMP 97.4–98.6; O2SAT 99–100
[2017-11-14] MEDS: RESP: ALBUTEROL 2.5 MG/IPRATROPIUM 0.5 MG NEB (SCH) NEB ×7 (00:05→23:25)
[2017-11-14] MEDS: HEPARIN-D5W 25,000 U/250 ML 250 ML IV PRN (00:41)
[2017-11-14 00:52] LABS: TOTAL PROTEIN 5.3 GM/DL (6.4-8.2)
[2017-11-14] MEDS: CHLORHEXIDINE GLUCONATE 2 % 1 PACK (2 CLOTHS)(taper/protocol) TOPICAL SCH (04:00)
[2017-11-14] MEDS: CEFEPIME INJ 2,000 MG in SODIUM CHLORIDE 0.9% INJ 100 ML IV SCH ×3 (04:24→23:02)
[2017-11-14] MEDS: methylPREDNISolone SOD SUCC 125 MG/2 ML VIAL IV PUSH SCH ×3 (04:24→17:56)
[2017-11-14] MEDS: INSULIN ASPART SUPPLEMENTAL SCALE SQ SCH ×2 (05:24)
[2017-11-14 06:25] LABS: AUTOMATED NEUTROPHIL # 6.7 TH/MM3 (1.8-7.7); HEMATOCRIT 40.6 % (35.0-46.0); LYMPH % 2.2 % (9.0-44.0); LYMPHOCYTE # 0.2 TH/MM3 (1.0-4.8); MEAN CELL VOLUME 77.2 FL (80.0-100.0); MEAN CORPUSCULAR HEMOGLOBIN 24.7 PG (27.0-34.0); MEAN PLATELET VOLUME 7.9 FL (7.0-11.0); MONO % 6.1 % (0.0-8.0); MONOCYTE # 0.5 TH/MM3 (0-0.9); NEUT % 91.7 % (16.0-70.0); PLATELET COUNT 252 TH/MM3 (150-450); RED BLOOD COUNT 5.25 MIL/MM3 (4.00-5.30); RED CELL DISTRIBUTION WIDTH 19.3 % (11.6-17.2); WHITE BLOOD COUNT 7.3 TH/MM3 (4.0-11.0)
[2017-11-14 06:50] LABS: BICARBONATE 25.5 MEQ/L (21.0-32.0); CALCIUM 7.5 MG/DL (8.5-10.1); CREATININE 0.64 MG/DL (0.50-1.00)
[2017-11-14] MEDS: PROPOFOL 1000 MG/100 ML INJ 100 ML IV PRN ×2 (07:26→18:03)
[2017-11-14] MEDS: FAMOTIDINE 20 MG/2 ML VIAL IV PUSH SCH ×2 (08:56→23:01)
[2017-11-14] MEDS: SODIUM CHLORIDE 0.9% FLUSH 10 ML FLUSH IV FLUSH SCH ×2 (08:56→23:00)
[2017-11-14] MEDS: ERYTHROMYCIN 0.5% OPTH OINT 3.5 GM TUBO EACH EYE SCH ×2 (08:57→21:00)
[2017-11-14] MEDS: TIMOLOL MALEATE 0.25% OPHT SOLN 5 ML BTL EACH EYE SCH ×2 (08:58→23:00)
[2017-11-14] MEDS: CHLORHEXIDINE 0.12% (ORAL KIT) 15 ML CUP MT SCH ×2 (08:58→23:00)
[2017-11-14] MEDS ORDERED: DEXTROSE 50% IN WATER 50 ML VIAL(D50) IV PUSH PRN (09:45)
[2017-11-14] MEDS ORDERED: GLUCAGON 1 MG/ML VIAL OTHER PRN (09:45)
--- NOTE | 2017-11-14 09:46 | HHI.CCPN ---
Subjective Remarks/Hospital Course 81-year-old female presents from home via EMS due to respiratory distress. She was most recently admitted to [facility] 06/15/17 due to acute ischemic stroke and underwent IR embolectomy. She also has a history of muscular dystrophy, glaucoma, hypertension, hyperlipidemia, hypothyroidism, atrial fibrillation on chronic anticoagulation with Eliquis. After her stroke she was treated at [facility] and was discharged to home July 10, 2017. Her states she has generally been getting "weaker" over the last couple of weeks and has not been eating as much. She has complained of nausea but has not had any vomiting, diarrhea, abdominal pain, cough, fever, headache or chest pain. She has had decreased mobility over the last couple of weeks. Apparently she was able to use a walker when she left [place] but now she has had difficulty transferring to a wheelchair. Because of her decreased mobility a Hills was placed on Thursday 11/09. She also has decubitus ulcers on her buttocks and was receiving home health care to help manage her wounds. Earlier this morning home health came to assist her with her bath and reportedly sats were in the 80s. Subsequently home health came to assist with managing her wounds and reportedly sats were in the 50s. She was brought to the emergency department where she was lethargic on arrival and had acute hypercapnic respiratory failure with pH 7.22/PaCO2 of 76/PaO2 of 70 on 5 L nasal cannula. Chest x-ray demonstrated opacification of the right lower lobe which may be a combination of consolidation and effusion. She was placed on BiPAP and was initially going to be admitted to the hospitalist service on [facility].. She became hypotensive and unresponsive and so she was intubated. There is been difficulty obtaining cuff pressures and radial art line was attempted but unsuccessful. She has been started on Levophed. She has received normal saline total of 2 L bolus. I have placed a central line and art line. She will be admitted to [facility]. 11/12 Off levophed. R pleural effusion needs drainage but waiting 48 hours after eliquis. UOP improved. Initiating tube feeds. Subjective: 11/13 Held heparin and I performed R pigtail catheter R chest this evening with drainage of >650 serous fluid so far. Will CPAP tomorrow and see if able to extubate. 11/14 Patient remains intubated and sedated. On Heparin drip. Objective Vital Signs Date Time Temp Pulse Resp B/P (MAP) Pulse Ox O2 Delivery O2 Flow Rate FiO2 11/14/17 08:47 100 35 11/14/17 08:00 97.4 91 16 91/57 (68) 11/11/17 18:40 Ventilator 11/11/17 12:55 5.00 Intake and Output 11/14/17 11/14/17 11/15/17 08:00 16:00 00:00 Intake Total 766 ml Output Total 425 ml Balance 341 ml Result Diagram: 11/14/17 0550 11/14/17 0550 Other Results Laboratory Tests Test 11/13/17 18:15 11/13/17 23:35 11/14/17 05:50 Pleural Fluid pH 7.0 Pleural Fluid WBC 35 /MM3 Pleural Fluid RBC 303 /MM3 Pleural Fluid Neutrophils 11 % Pleural Fluid Lymphocytes 78 % Pleural Fluid Histiocytes 10 % Pleural Fluid Mesothelial Cells 1 % Pleural Fluid Total Protein 1.9 GM/DL Pleural Fluid LDH 69 U/L Pleural Fluid Glucose 213 MG/DL Potassium Level 3.8 MEQ/L 3.6 MEQ/L Lactate Dehydrogenase 199 U/L Total Protein 5.3 GM/DL White Blood Count 7.3 TH/MM3 Red Blood Count 5.25 MIL/MM3 Hemoglobin 13.0 GM/DL Hematocrit 40.6 % Mean Corpuscular Volume 77.2 FL Mean Corpuscular Hemoglobin 24.7 PG Mean Corpuscular Hemoglobin Concent 32.0 % Red Cell Distribution Width 19.3 % Platelet Count 252 TH/MM3 Mean Platelet Volume 7.9 FL Neutrophils (%) (Auto) 91.7 % Lymphocytes (%) (Auto) 2.2 % Monocytes (%) (Auto) 6.1 % Eosinophils (%) (Auto) 0.0 % Basophils (%) (Auto) 0.0 % Neutrophils # (Auto) 6.7 TH/MM3 Lymphocytes # (Auto) 0.2 TH/MM3 Monocytes # (Auto) 0.5 TH/MM3 Eosinophils # (Auto) 0.0 TH/MM3 Basophils # (Auto) 0.0 TH/MM3 CBC Comment DIFF FINAL Differential Comment Blood Urea Nitrogen 24 MG/DL Creatinine 0.64 MG/DL Random Glucose 287 MG/DL Calcium Level 7.5 MG/DL Sodium Level 149 MEQ/L Chloride Level 115 MEQ/L Carbon Dioxide Level 25.5 MEQ/L Anion Gap 9 MEQ/L Estimat Glomerular Filtration Rate 90 ML/MIN Imaging Last Impressions Chest X-Ray 11/13/17 Signed Impressions: CONCLUSION: Placement of small-caliber right chest tube with marked improvement in right pl eural effusion. Small left effusion with basilar consolidation. Endotracheal tu be, nasogastric tube and right central line unchanged. Renal Ultrasound 11/12/17 Signed Impressions: CONCLUSION: 1. Ascites otherwise unremarkable. Head CT 11/11/17 1211 Signed Impressions: CONCLUSION: 1. Negative CT Head non contrast. CT Angiography 11/11/17 Signed Impressions: CONCLUSION: 1. No pulmonary embolus. 2. Bilateral pleural effusions being moderate to large on the right and mild o n the left. 3. Suspected atelectasis at the posterior lower lobes bilaterally. 4. Scattered mosaic attenuation pattern typically seen with interstitial disea se and/or air trapping. Objective Remarks GENERAL: Elderly under nourished appearing frail female who is orotracheally intubated. SKIN: Skin perfused. HEAD: Atraumatic. Normocephalic. EYES: Right pupil is pinpoint, left pupil is 2 mm sluggishly reactive to 1 mm. Bilateral conjunctive is extremely erythematous and inflamed appearing. No exudate. ENT: No nasal bleeding or discharge. Mucous membranes dry NECK: Trachea midline. No JVD. CARDIOVASCULAR: Irregular, no murmurs rubs or gallops appreciated. RESPIRATORY: Orotracheally intubated on mechanical ventilation. No significant secretions with suctioning. Diminished breath sounds bilaterally. No wheezes rales GASTROINTESTINAL: Abdomen soft, non-tender, nondistended. Bowel sounds hypoactive. Vertical scar infraumbilical. : Hills in place with yellow urine output. MUSCULOSKELETAL: Extremities without clubbing, cyanosis 2+ edema bilateral lower extremities below the knee. NEUROLOGICAL: Eyes are spontaneously open and states that she often sleeps this way. Withdraws with all extremities to noxious stimuli. Not following commands or purposeful. Now on propofol for sedation A/P Assessment and Plan NEURO: Muscular dystrophy Prior stroke June 2017 Acute encephalopathy Propofol for sedation. Target RASS -[address] brain 11/11 - no acute abnormality RESP: Acute hypercapnic respiratory failure Bilateral pleural effusions, Bilateral consolidations/atelectasis PRVC RR 16, TV 450, IT:1.0, PEEP:5, FIO2: 35% Continue with vent support keep sats >92% ventilator bundle, DuoNeb every 4 hours, albuterol every 2 hours as needed. SBT as [place] Pulmonology following, Dr. Gray. Decrease solumederol 40mg Q12 s/p Right pigtail catheter placement 11/13 for plerual effusion 650ml pleural fluid removed ( transudative effusion) Monitor drainage CV: Atrial fibrillation Pulmonary Hypertension Severe TR Serial torponin negative. 2D echo from 06/16/17mild concentric LVH. EF 60-65%. Mild left atrial dilation. Moderate thickening of mitral valve. Severe tricuspid regurg. Pulmonary artery pressure 52.8 mm Follow-up 2D echo She is chronically on Eliquis which we will hold while she is critically ill , resume when all procedures done. Using heparin drip as she is at high risk of stroke. Held Norvasc 5 mg p.o. daily and metoprolol 75 mill grams p.o. every 8 hours due to hypotension GI: Orogastric tube. Jevity 1.5 currently at 40ml/hr increase goal rate to 50 mL /h per nutrition recommendations FEN/RENAL: Acute kidney-improving Monitor renal function, I/O's, electrolytes replacement as needed Renal ultrasound no hydronephrosis, Urine eosinophil negative. Diurese with Lasix 40mg x1 Add Free water 250ml Q12 monitor sodium level. ID: UTI Aspiration versus community-acquired pneumonia Hills was replaced in the emergency department 11/11 Blood cultures no growth to date. Urine culture with group D enterococcus. 11/11 Urine Legionella and pneumococcal antigen negative, Sputum culture NGTD. Received ceftriaxone and azithromycin in the emergency department. On Cefepime, azithromycin monitor for signs of infections ( Fever, WBC) Conjunctivitis/probable keratitis secondary to inability to close eyes completely. Patient previously refused surgical intervention for this Erythromycin ophthalmic twice daily Levofloxacin ocular drops Glaucoma Continue timolol 0.25% ophthalmic each eye every 12 hours HEME: Chronic anticoagulation with Eliquis for atrial fibrillation and history of stroke Eliquis held, on Heparin drip as per above Monitor CBC, coags ENDO: Increase SSI to medium scale, add Levemir 5units Q12 and pater steroids for glycemic control Hypothyroidism TSH:4.2 on 11/11 PROPH: SCDs for DVT prophylaxis. Heparin drip as per above. Famotidine for stress ulcer prophylaxis ACCESS: Right IJ central venous line placed 11/[address] Higuera: Her states she previously made advanced directives but they cannot be obtained because they are in a home in [place] and they no longer have access to them. He says he does not know which hospital she was in when she made them and does not believe that they were drawn up by an regulatory attorney that would have a copy. He states that he is familiar with her wishes and that she would wish to be full code but did not want prolonged life support "if there was no hope of getting better". Full code Level 3 f/u Vincent Mccullough MD Nov 14, 2017 09:46
[2017-11-14] MEDS ORDERED: FUROSEMIDE 40 MG/4 ML VIAL IV PUSH ONE (11:00)
[2017-11-14] MEDS: INSULIN NovoLIN REGULAR SUPPLEMENTAL SCALE SQ SCH ×4 (12:29→23:00)
[2017-11-14] MEDS: INSULIN DETEMIR 100 UNITS/ML VIAL SQ SCH ×2 (12:29→21:00)
[2017-11-14] MEDS: FREE WATER G-TUBE SCH ×2 (12:29→21:00)
--- NOTE | 2017-11-14 13:36 | HHI.PR ---
Subjective Remarks Same No significant events overnight the patient did have a chest tube with significant drainage. Objective Vital Signs Date Time Temp Pulse Resp B/P (MAP) Pulse Ox O2 Delivery O2 Flow Rate FiO2 11/14/17 11:55 100 35 11/14/17 10:00 89 11/14/17 08:47 100 35 11/14/17 08:00 35 11/14/17 08:00 97.4 91 16 91/57 (68) 99 11/14/17 08:00 91 11/14/17 08:00 97.4 11/14/17 06:00 97.9 100 16 108/67 (81) 100 11/14/17 06:00 100 11/14/17 04:14 99 35 11/14/17 04:00 35 11/14/17 04:00 98.2 90 16 102/64 (77) 99 11/14/17 04:00 97.8 11/14/17 04:00 90 11/14/17 02:00 98 11/14/17 00:05 100 35 11/14/17 00:00 98.2 101 27 128/81 (97) 100 11/14/17 00:00 98.6 11/14/17 00:00 35 11/14/17 00:00 101 11/13/17 22:00 94 11/13/17 20:32 100 35 11/13/17 20:00 86 11/13/17 20:00 98.6 11/13/17 20:00 35 11/13/17 20:00 98.1 86 16 107/71 (83) 100 Arterial Line 11/13/17 18:00 88 11/13/17 16:00 98.8 11/13/17 16:00 98.7 85 16 110/64 (79) 100 113/66 (82) 11/13/17 16:00 85 11/13/17 16:00 35 11/13/17 15:00 98.6 86 16 129/71 (90) 100 11/13/17 14:24 100 35 11/13/17 14:00 90 11/13/17 14:00 98.6 90 16 119/65 (83) 100 121/69 (86) I/O 11/13/17 11/13/17 11/13/17 11/14/17 11/14/17 11/14/17 07:00 15:00 23:00 07:00 15:00 23:00 Intake Total 646 ml 300 ml 1070 ml 766 ml Output Total 200 ml 1000 ml 425 ml Balance 446 ml 300 ml 70 ml 341 ml Intake IV Total 300 ml 300 ml 850 ml 350 ml Tube Feeding 160 ml 416 ml Tube Irrigant 296 ml 60 ml Other 50 ml Output Urine Total 200 ml 350 ml 350 ml Chest Tube Drainage Total 650 ml 75 ml # Bowel Movements 0 0 0 Result Diagram: 11/14/1750 11/14/1750 Objective Remarks Physical exam: General appearance: Intubated Head and neck examination: ET tube pump Neck: [supple trachea midline] Lungs: No wheezing heard, significant decrease of breath sounds over the right side Chest tube in place on the right side pleural fluid is joanie in color Heart: [normal S1-S2] Abdomen: [soft nontender positive bowel sounds] Extremities: [no significant edema no cyanosis] Neurological examination: Sedated on mechanical ventilator Skin: [no rashes seen] Assessment and Plan Assessment and Plan 1. Ventilator-dependent respiratory failure. 2. Bilateral pleural effusions, more on the right side./ transudative 3. Pulmonary hypertension. 4. Severe tricuspid regurgitation. 5. Muscle dystrophy. 6. Coagulopathy secondary to Eliquis. Continue current plan of care keep chest tube and continue draining of the pleural fluid continue to follow up on the pathology Medical care as per the milk route supervisor We will continue to follow discussed with the at the bedside in details. Discussed with the nurse as well. Ellis Gray MD Nov 14, 2017 13:36
[2017-11-14] MEDS: AZITHROMYCIN INJ 500 MG in SODIUM CHLOR 0.9% 250 ML INJ 250 ML IV SCH (17:57)
[2017-11-15] VITALS (22 sets, daily range): BP systolic 95–131; BP diastolic 56–77; PULSE 83–107; RESP 16–19; TEMP 98.6; O2SAT 97–100
[2017-11-15] MEDS: RESP: ALBUTEROL 2.5 MG/IPRATROPIUM 0.5 MG NEB (SCH) NEB ×5 (02:47→19:29)
[2017-11-15] MEDS: INSULIN NovoLIN REGULAR SUPPLEMENTAL SCALE SQ SCH ×6 (03:00→22:25)
[2017-11-15] MEDS: methylPREDNISolone SOD SUCC 125 MG/2 ML VIAL IV PUSH SCH ×2 (03:19→16:18)
[2017-11-15] MEDS: CEFEPIME INJ 2,000 MG in SODIUM CHLORIDE 0.9% INJ 100 ML IV SCH ×3 (03:19→21:04)
[2017-11-15] MEDS: PROPOFOL 1000 MG/100 ML INJ 100 ML IV PRN ×2 (03:20→21:13)
[2017-11-15] MEDS: CHLORHEXIDINE GLUCONATE 2 % 1 PACK (2 CLOTHS)(taper/protocol) TOPICAL SCH (03:20)
[2017-11-15] MEDS: TIMOLOL MALEATE 0.25% OPHT SOLN 5 ML BTL EACH EYE SCH ×2 (08:15→21:05)
[2017-11-15] MEDS: FREE WATER G-TUBE SCH ×2 (08:15→21:00)
[2017-11-15] MEDS: CHLORHEXIDINE 0.12% (ORAL KIT) 15 ML CUP MT SCH ×2 (08:15→21:04)
[2017-11-15] MEDS: SODIUM CHLORIDE 0.9% FLUSH 10 ML FLUSH IV FLUSH SCH ×2 (08:15→21:06)
[2017-11-15] MEDS: ERYTHROMYCIN 0.5% OPTH OINT 3.5 GM TUBO EACH EYE SCH ×2 (08:15→21:05)
[2017-11-15] MEDS: INSULIN DETEMIR 100 UNITS/ML VIAL SQ SCH ×2 (08:16→21:00)
[2017-11-15] MEDS: FAMOTIDINE 20 MG/2 ML VIAL IV PUSH SCH ×2 (08:16→21:05)
--- NOTE | 2017-11-15 09:26 | HHI.CCPN ---
Subjective Remarks/Hospital Course 81-year-old female presents from home via EMS due to respiratory distress. She was most recently admitted to [facility] 06/15/17 due to acute ischemic stroke and underwent IR embolectomy. She also has a history of muscular dystrophy, glaucoma, hypertension, hyperlipidemia, hypothyroidism, atrial fibrillation on chronic anticoagulation with Eliquis. After her stroke she was treated at [facility] and was discharged to home July 10, 2017. Her states she has generally been getting "weaker" over the last couple of weeks and has not been eating as much. She has complained of nausea but has not had any vomiting, diarrhea, abdominal pain, cough, fever, headache or chest pain. She has had decreased mobility over the last couple of weeks. Apparently she was able to use a walker when she left [place] but now she has had difficulty transferring to a wheelchair. Because of her decreased mobility a Hills was placed on Thursday 11/09. She also has decubitus ulcers on her buttocks and was receiving home health care to help manage her wounds. Earlier this morning home health came to assist her with her bath and reportedly sats were in the 80s. Subsequently home health came to assist with managing her wounds and reportedly sats were in the 50s. She was brought to the emergency department where she was lethargic on arrival and had acute hypercapnic respiratory failure with pH 7.22/PaCO2 of 76/PaO2 of 70 on 5 L nasal cannula. Chest x-ray demonstrated opacification of the right lower lobe which may be a combination of consolidation and effusion. She was placed on BiPAP and was initially going to be admitted to the hospitalist service on [facility].. She became hypotensive and unresponsive and so she was intubated. There is been difficulty obtaining cuff pressures and radial art line was attempted but unsuccessful. She has been started on Levophed. She has received normal saline total of 2 L bolus. I have placed a central line and art line. She will be admitted to [facility] [place]. 11/12 Off levophed. R pleural effusion needs drainage but waiting 48 hours after eliquis. UOP improved. Initiating tube feeds. Subjective: 11/13 Held heparin and I performed R pigtail catheter R chest this evening with drainage of >650 serous fluid so far. Will CPAP tomorrow and see if able to extubate. 11/14 Patient remains intubated and sedated. On Heparin drip. 11/15 No events overnight. Sedated with Diprivan and intubated. Did not tolerate CPAP trials yesterday. Afebrile. On Heparin drip. Objective Vital Signs Date Time Temp Pulse Resp B/P (MAP) Pulse Ox O2 Delivery O2 Flow Rate FiO2 11/15/17 08:29 100 35 11/15/17 04:30 98.4 93 16 111/72 (85) 11/11/17 18:40 Ventilator 11/11/17 12:55 5.00 Intake and Output 11/15/17 11/15/17 11/16/17 08:00 16:00 00:00 Intake Total 1046 ml Output Total 1330 ml Balance -284 ml Result Diagram: 11/14/17 0550 11/14/17 1304 Other Results Laboratory Tests Test 11/14/17 09:30 11/14/17 13:04 11/15/17 05:50 Activated Partial Thromboplast Time 48.5 SEC 42.4 SEC Potassium Level 3.5 MEQ/L Imaging Last Impressions Chest X-Ray 11/13/17 0000 Signed Impressions: CONCLUSION: Placement of small-caliber right chest tube with marked improvement in right pl eural effusion. Small left effusion with basilar consolidation. Endotracheal tu be, nasogastric tube and right central line unchanged. Renal Ultrasound 11/12/17 0000 Signed Impressions: CONCLUSION: 1. Ascites otherwise unremarkable. Head CT 11/11/17 1211 Signed Impressions: CONCLUSION: 1. Negative CT Head non contrast. CT Angiography 11/11/17 0000 Signed Impressions: CONCLUSION: 1. No pulmonary embolus. 2. Bilateral pleural effusions being moderate to large on the right and mild o n the left. 3. Suspected atelectasis at the posterior lower lobes bilaterally. 4. Scattered mosaic attenuation pattern typically seen with interstitial disea se and/or air trapping. Objective Remarks GENERAL: Elderly under nourished appearing frail female who is orotracheally intubated. SKIN: Skin perfused. HEAD: Atraumatic. Normocephalic. EYES: Right pupil is pinpoint, left pupil is 2 mm sluggishly reactive to 1 mm. Bilateral conjunctive is extremely erythematous and inflamed appearing. No exudate. ENT: No nasal bleeding or discharge. Mucous membranes dry NECK: Trachea midline. No JVD. CARDIOVASCULAR: Irregular, no murmurs rubs or gallops appreciated. RESPIRATORY: Orotracheally intubated on mechanical ventilation. No significant secretions with suctioning. Diminished breath sounds bilaterally. No wheezes rales GASTROINTESTINAL: Abdomen soft, non-tender, nondistended. Bowel sounds hypoactive. Vertical scar infraumbilical. : Hills in place with yellow urine output. MUSCULOSKELETAL: Extremities without clubbing, cyanosis 2+ edema bilateral lower extremities below the knee. NEUROLOGICAL: Eyes are spontaneously open and states that she often sleeps this way. Withdraws with all extremities to noxious stimuli. Not following commands or purposeful. Now on propofol for sedation A/P Assessment and Plan NEURO: Muscular dystrophy Prior stroke June 2017 Acute encephalopathy Propofol for sedation. Target RASS -[address] brain 11/11 - no acute abnormality RESP: Acute hypercapnic respiratory failure Bilateral pleural effusions, Bilateral consolidations/atelectasis PRVC RR 16, TV 450, IT:1.0, PEEP:5, FIO2: 35% Continue with vent support keep sats >92% ventilator bundle, DuoNeb every 4 hours, albuterol every 2 hours as needed. SBT as burke. Check CXR Pulmonology following, Dr. Gray. Solumederol 40mg Q12 s/p Right pigtail catheter placement 11/13 for plerual effusion 650ml pleural fluid removed ( transudative effusion) Monitor drainage CV: Atrial fibrillation Pulmonary Hypertension Severe TR Serial torponin negative. 2D echo from 06/16/17mild concentric LVH. EF 60-65%. Mild left atrial dilation. Moderate thickening of mitral valve. Severe tricuspid regurg. Pulmonary artery pressure 52.8 mm Follow-up 2D echo She is chronically on Eliquis on hold. Continue with heparin drip as she is at high risk of stroke. GI: Orogastric tube. Jevity 1.5@ 50 mL/h per nutrition recommendations FEN/RENAL: Acute kidney-improving Monitor renal function, I/O's, electrolytes replacement as needed Renal ultrasound no hydronephrosis, Urine eosinophil negative. s/p Lasix 40mg x1 11/14 On Free water 250ml Q12 monitor sodium level. ID: [id number] Aspiration versus community-acquired pneumonia Hills was replaced in the emergency department 11/11 Blood cultures no growth to date. Urine culture with group D enterococcus. 11/11 Urine Legionella and pneumococcal antigen negative, Sputum culture NGTD. Received ceftriaxone and azithromycin in the emergency department. On Cefepime, azithromycin monitor for signs of infections ( Fever, WBC) Conjunctivitis/probable keratitis secondary to inability to close eyes completely. Patient previously refused surgical intervention for this Erythromycin ophthalmic twice daily Levofloxacin ocular drops Glaucoma Continue timolol 0.25% ophthalmic each eye every 12 hours HEME: Chronic anticoagulation with Eliquis for atrial fibrillation and history of stroke Eliquis held, on Heparin drip as per above Monitor CBC, coags ENDO: Increase SSI to medium scale, add Levemir 5units Q12 and pater steroids for glycemic control Hypothyroidism TSH:4.2 on 11/11 PROPH: SCDs for DVT prophylaxis. Heparin drip as per above. Famotidine for stress ulcer prophylaxis ACCESS: Right IJ central venous line placed 11/[address] Higuera: Her states she previously made advanced directives but they cannot be obtained because they are in a home in [place] and they no longer have access to them. He says he does not know which hospital she was in when she made them and does not believe that they were drawn up by an energy attorney that would have a copy. He states that he is familiar with her wishes and that she would wish to be full code but did not want prolonged life support "if there was no hope of getting better". Consult palliative care. Follow up on labs today Full code Level 3 f/u Vincent Mccullough MD Nov 15, 2017 09:26
--- NOTE | 2017-11-15 09:54 | RADRPT ---
EXAM DATE: 11/15/2017 9:45 AM EDT AGE/SEX: 81 years / Female INDICATIONS: Short of breath CLINICAL DATA: This is the patient's subsequent encounter. Patient reports that signs and symptoms h ave been present for 4 - 6 days and indicates a pain score of Nonresponsive. MEDICAL/SURGICAL HISTORY: Hypertension. CVA Hysterectomy. section. bilat hipleft kne e COMPARISON: C, CHEST SINGLE AP, 11/13/2017. . FINDINGS: The chest is unchanged in appearance. Left basilar airspace disease and small left effusion remain ev ident. The right lung remains clear. Heart and mediastinal structures are stable. Support devices remain in good position. CONCLUSION: Stable chest as described above. Electronically signed by: Keith Martinez MD 11/15/2017 9:52 AM EDT
[2017-11-15 10:43] LABS: AUTOMATED NEUTROPHIL # 8.5 TH/MM3 (1.8-7.7); BASOPHIL % 0.1 % (0.0-2.0); HEMATOCRIT 40.8 % (35.0-46.0); HEMOGLOBIN 12.9 GM/DL (11.6-15.3); LYMPH % 2.4 % (9.0-44.0); LYMPHOCYTE # 0.2 TH/MM3 (1.0-4.8); MEAN CELL VOLUME 77.5 FL (80.0-100.0); MEAN CORPUSCULAR HEMOGLOBIN 24.5 PG (27.0-34.0); MEAN CORPUSCULAR HGB CONC 31.6 % (32.0-36.0); MEAN PLATELET VOLUME 8.1 FL (7.0-11.0); MONO % 7.7 % (0.0-8.0); MONOCYTE # 0.7 TH/MM3 (0-0.9); NEUT % 89.8 % (16.0-70.0); PLATELET COUNT 232 TH/MM3 (150-450); RED BLOOD COUNT 5.27 MIL/MM3 (4.00-5.30); RED CELL DISTRIBUTION WIDTH 19.4 % (11.6-17.2); WHITE BLOOD COUNT 9.5 TH/MM3 (4.0-11.0)
[2017-11-15 11:03] LABS: BICARBONATE 25.9 MEQ/L (21.0-32.0); CALCIUM 7.5 MG/DL (8.5-10.1); CREATININE 0.48 MG/DL (0.50-1.00); MAGNESIUM 2.1 MG/DL (1.5-2.5)
[2017-11-15 11:04] LABS: PHOSPHORUS 1.5 MG/DL (2.5-4.9)
[2017-11-15] MEDS: AZITHROMYCIN INJ 500 MG in SODIUM CHLOR 0.9% 250 ML INJ 250 ML IV SCH (16:19)
--- NOTE | 2017-11-15 17:13 | ECHRPT ---
Indication: SHORTNESS OF BREATH CONCLUSIONS Normal left ventricular size. Wall thickness is normal. The left ventricular systolic function is grossly normal on limited imaging. The right ventricle is mildly dilated. The left ventricular systolic function is low normal with an estimated ejection fraction in the ran ge of 50- 55%. Moderate mitral annular calcification. Mild mitral valve regurgitation. Aortic valve sclerosis is present. Trace aortic valve regurgitation. There is moderate to severe tricuspid valve regurgitation. The estimated pulmonary arterial pressure is 47 mmHg. Mild pulmonary valve regurgitation. Trivial pericardial effusion vs pericardial fat pad. BP: 119 / 71 HR: 92 Rhythm: Atrial fibrillation, Atrial flut ter MEASUREMENTS (Male / Female) Normal Values Technical Quality:Fair 2D ECHO LV Diastolic Diameter PLAX 2.5 cm 4.2 - 5.9 / 3.9 - 5.3 cm LV Systolic Diameter PLAX 1.6 cm IVS Diastolic Thickness 1.2 cm 0.6 - 1.0 / 0.6 - 0.9 cm LVPW Diastolic Thickness 0.9 cm 0.6 - 1.0 / 0.6 - 0.9 cm LV Relative Wall Thickness 0.9 RV Internal Dim ED PLAX 2.7 cm LVOT Diameter 1.5 cm Aortic Root Diameter 3.4 cm LA Systolic Diameter LX 2.8 cm 3.0 - 4.0 / 2.7 - 3.8 cm M-MODE AV Cusp Separation MM 1.9 cm DOPPLER AV Peak Velocity 110.9 cm/s AV Peak Gradient 4.9 mmHg AV Mean Gradient 3.0 mmHg AV Velocity Time Integral 12.9 cm LVOT Peak Velocity 82.3 cm/s LVOT Peak Gradient 2.7 mmHg LVOT Velocity Time Integral 9.3 cm AV Area Cont Eq vti 1.3 cm AV Area Cont Eq pk 1.3 cm Mitral E Point Velocity 99.0 cm/s LV E' Lateral Velocity 9.2 cm/s Mitral E to LV E' Lateral Ratio 10.8 LV E' Septal Velocity 5.5 cm/s Mitral E to LV E' Septal Ratio 18.0 TR Peak Velocity 304.0 cm/s TR Peak Gradient 37.0 mmHg Right Atrial Pressure 10.0 mmHg Pulmonary Artery Systolic Pressu 47.0 mmHg Right Ventricular Systolic Press 47.0 mmHg PV Peak Velocity 65.8 cm/s PV Peak Gradient 1.7 mmHg FINDINGS LEFT VENTRICLE Normal left ventricular size. Wall thickness is normal. The left ventricular systolic function is grossly normal on limited imaging. The left ventricular systolic function is low normal with an estimated ejection fraction in the ran ge of 50- 55%. RIGHT VENTRICLE The right ventricle is mildly dilated. LEFT ATRIUM The left atrial size is normal. RIGHT ATRIUM The right atrial size is normal. ATRIAL SEPTUM No atrial level shunt is demonstrated by color flow Doppler interrogation. AORTA The aortic root and proximal ascending aorta are not well visualized. MITRAL VALVE Moderate mitral annular calcification. Mild mitral valve regurgitation. AORTIC VALVE Aortic valve sclerosis is present. Trace aortic valve regurgitation. TRICUSPID VALVE There is moderate to severe tricuspid valve regurgitation. The estimated pulmonary arterial pressure is 47 mmHg. PULMONARY VALVE Mild pulmonary valve regurgitation. PERICARDIUM Trivial pericardial effusion vs pericardial fat pad. Link Apodaca MD, FACC (Electronically Signed) Final Date:15 November 2017 17:12
--- NOTE | 2017-11-15 18:59 | PD.CONS ---
Consult Service Palliative Care . Consult Requested By Dr. North . Primary Care Physician Unknown . Reason for Consultation a. To assist with evaluation and management of symptoms including: dyspnea, anxiety, weakness, pain. b. To assist medical decision maker(s) with: better understanding of current medical conditions; weighing benefits/burdens of medical treatment options; making medical treatment decisions. . HPI History of Present Illness Mrs. Martin is a 81-year-old female with past medical history of acute ischemic stroke in June 2017, muscular dystrophy, glaucoma, hypertension, hyperlipidemia, hypothyroidism and atrial fibrillation on chronic anticoagulation with Eliquis. Patient was previously admitted to [facility] on 06/15/17 secondary to acute ischemic stroke at which time she underwent IR embolectomy. Upon discharge she was [facility] to [facility] and eventually discharged home on 07/10/17. Patient had progressively worsening weakness since her return home in July. Patient presented from home via EMS due to respiratory distress. On the day of presentation to the emergency department [facility] came to assist her with her bath and reportedly sats were in the 80s. Subsequently [facility] came to assist with managing her wounds and reportedly sats were in the 50s. She was brought to the emergency department where she was lethargic on arrival and had acute hypercapnic respiratory failure with pH 7.22/PaCO2 of 76/PaO2 of 70 on 5 L nasal cannula. Chest x-ray demonstrated opacification of the right lower lobe which may be a combination of consolidation and effusion. She was placed on BiPAP and was initially going to be admitted to the hospitalist service on [facility].. She became hypotensive and unresponsive, she was intubated and placed on mechanical ventilation. Pulmonology, Dr. Gray was consulted. Since admission patient had right pleural effusion, right pigtail chest tube was placed with continued drainage. On heparin drip. patient continues to fail CPAP trials due to apnea. Palliative care was consulted to assist with clarification of medical treatment goals. Upon my arrival patient had been off sedation was awake and alert, she is able to nod yes/no appropriately. Conversation witnessed by her spouse and nurse, Amaris. Patient indicates she desires NO CODE STATUS. She does not want cardiac resuscitation, chest compressions, ACLS or shock or reintubation if she is able to be medically extubated in the coming days. She is willing to consider continuation of CPAP trials in the coming days, has a long history of anxiety and requests to be re-sedated if going to be maintained on mechanical ventilation overnight. Discussed with Dr. North nursing staff. She agrees to continuation of intermittent CPAP trials. She does not want to be prolonged artificially by machines. She does not want tracheostomy/feeding tube. She would want to be allowed to pass peacefully naturally with withdrawal of life support should she not be able to be weaned from mechanical ventilation. Her supports this decision. Palliative care will continue to follow to assist with clarification of treatment goals as needed. Advised that medical team will notify the patient should it appears she will not be able to be weaned from mechanical ventilation at which point she directs that withdrawal of life support and her wishes be followed. . Function/Cognitive Trajectory Her states she has generally been getting "weaker" over the last couple of weeks and has not been eating as much. She has had decreased mobility over the last couple of weeks. Prior to her stroke she was ambulating with a cane, upon discharge from [facility] she was ambulating with a walker. Since she returned home she has been able to stand and pivot with help and now dependent on wheelchair. Because of her decreased mobility a Hills was placed on Thursday 11/09. She also has decubitus ulcers on her buttocks and was receiving home health care to help manage her wounds. . Review of Systems ROS Limitations: Intubated Constitutional: COMPLAINS OF: Fatigue, Weight loss, Change in appetite ( Decreased), Pain, Generalized weakness Endocrine: DENIES: Abnorml menstrual pattern, Heat/cold intolerance, Polydipsia , Polyuria, Polyphagia Eyes: COMPLAINS OF: Blurred vision Ears, nose, mouth, throat: DENIES: Tinnitus, Hearing loss, Vertigo, Nasal discharge, Oral lesions, Throat pain, Hoarseness, Ear Pain, Running Nose, Epistaxis, Sinus Pain, Toothache, Odynophagia Respiratory: COMPLAINS OF: Apneas, Shortness of breath Cardiovascular: COMPLAINS OF: Dyspnea on Exertion, DENIES: Chest pain, Palpitations, Syncope, PND, Lower Extremity Edema, Orthopnea, Claudication Gastrointestinal: COMPLAINS OF: Constipation, Anorexia Genitourinary: DENIES: Abnormal vaginal bleeding, Dysmenorrhea, Dyspareunia, Sexual dysfunction, Urinary frequency, Urinary incontinence, Urgency, Hematuria , Dysuria, Nocturia, Vaginal discharge, Hesitancy, Dribbling, Decreased stream Musculoskeletal: COMPLAINS OF: Back pain Integumentary: COMPLAINS OF: Pruritus Hematologic/Lymphatics: COMPLAINS OF: Bruising Immunologic/Allergic: DENIES: Eczema, Urticaria Neurologic: COMPLAINS OF: Abnormal gait, Poor Balance (Previously ambulated with cane, progressed to a walker, recently wheelchair bound, able to stand and pivot with help.) Psychiatric: COMPLAINS OF: Anxiety Past Family Social History Coded Allergies: chocolate flavor (Verified Allergy, Intermediate, break out in pimples, 11/11/17) amoxicillin (Unverified Allergy, Mild, rash, 11/11/17) Past Medical History Conjunctivitis, recently started on antibiotics 4-5 days ago Muscular dystrophy Glaucoma Hypothyroidism Hypertension Hyperlipidemia Claustrophobia Arthritis Atrial fibrillation Tricuspid regurgitation Chronic anticoagulation with Eliquis . Past Surgical History Bilateral hip replacement Left knee arthroplasty Basal cell cancer removed Biopsy right breast 10-15 years ago which was negative for malignancy Left MCA angiography and embolectomy 06/15/17 (Dr. Jauregui) Hysterectomy and oophorectomy . Reported Medications Reported Meds & Active Scripts Active Norvasc (Amlodipine Besylate) 5 Mg Tab 5 Mg PO DAILY Lopressor (Metoprolol Tartrate) 50 Mg Tab 75 Mg PO Q8HR Eliquis (Apixaban) 5 Mg Tab 5 Mg PO BID Reported Timoptic Opth Drops (Timolol Opth Drops) 0.25 % Soln 1 Drop EACH EYE Q12HR Erythromycin Opth Oint 5 Mg/Gm Oint 1 Applic EACH EYE DAILY Levofloxacin Opth Drops 0.5% Soln 1 Drop EACH EYE QID Fiber (Calcium Polycarbophil) 625 Mg Tab 625 Mg PO PRN Current Medications Medications (Trade) Dose Ordered Sig/Conor Route Start Time Stop Time Status Last Admin Azithromycin 500 mg/Sodium Chloride 250 ml @ 250 mls/hr Q24H IV 11/12/17 17:00 11/15/17 16:19 (Timoptic 0.25% Opth Soln) 1 drop Q12HR EACH EYE 11/11/17 21:00 11/15/17 08:15 (NS Flush) 2 ml BID IV FLUSH 11/11/17 21:00 11/15/17 08:15 (NS Flush) 2 ml UNSCH PRN IV FLUSH 11/11/17 16:00 Cefepime HCl 2000 mg/Sodium Chloride 100 ml @ 200 mls/hr Q8H IV 11/11/17 20:00 11/15/17 11:42 Patient Own Medication PT OWN MED: Levofloxacin Opth . QID EACH EYE 11/11/17 18:00 Future Hold (Duoneb Neb) 1 ampule Q4HR NEB NEB 11/11/17 20:00 11/15/17 15:30 (Albuterol Neb) 2.5 mg Q2HR NEB PRN NEB 11/11/17 17:45 (Peridex 0.12% Liq) 15 ml BID@08,20 MT 11/11/17 20:00 11/15/17 08:15 Fentanyl Citrate 250 ml @ 5 mls/hr TITRATE PRN IV 11/11/17 18:00 ([facility] Nursing Information) Patient in critical care unit? Ass... [id number] .XX 11/11/17 20:00 11/11/17 20:00 (Chlorhexidine 2% Cloth) 3 pack DAILY@04 TOPICAL 11/12/17 04:00 11/16/17 04:01 11/15/17 03:20 (Chlorhexidine 2% Cloth) 3 pack UNSCH PRN TOPICAL 11/11/17 20:00 11/16/17 19:48 (Versed Inj) 2 mg Q15M PRN IV PUSH 11/11/17 20:00 Propofol 100 ml @ 1.65 mls/hr TITRATE PRN IV 11/11/17 20:00 11/15/17 03:20 Heparin Sodium/ Dextrose 250 ml @ 7 mls/hr TITRATE PRN IV 11/11/17 20:00 Future hold 11/14/17 00:41 (Pepcid Inj) 20 mg Q12H IV PUSH 11/11/17 21:00 11/15/17 08:16 (D50w (Vial) Inj) 50 ml UNSCH PRN IV PUSH 11/11/17 20:15 (Glucagon Inj) 1 mg UNSCH PRN OTHER 11/11/17 20:15 (Ilotycin 0.5% Opth Oint) 1 applic BID EACH EYE 11/12/17 21:00 11/15/17 08:15 Potassium Chloride 100 ml @ 50 mls/hr Q2H PRN IV 11/13/17 10:45 Potassium Chloride 100 ml @ 50 mls/hr Q2H PRN IV 11/13/17 10:45 11/13/17 18:19 (K-Lyte Cl Eff) 50 meq UNSCH PRN PO 11/13/17 10:45 11/14/17 15:22 Potassium Chloride 100 ml @ 25 mls/hr UNSCH PRN IV 11/13/17 10:45 Potassium Chloride 100 ml @ 50 mls/hr Q2H PRN IV 11/13/17 10:45 Magnesium Sulfate 4 gm/Sodium Chloride 100 ml @ 50 mls/hr UNSCH PRN IV 11/13/17 10:45 (Mag-Ox) 800 mg UNSCH PRN PO 11/13/17 10:45 Magnesium Sulfate 2 gm/Sodium Chloride 100 ml @ 50 mls/hr UNSCH PRN IV 11/13/17 10:45 (K-Phos) 2,000 mg Q4H PRN PO 11/13/17 10:45 Sodium Phosphate 30 mmol/Sodium Chloride 250 ml @ 42 mls/hr UNSCH PRN IV 11/13/17 10:45 (K-Phos) 2,000 mg UNSCH PRN PO/TUBE 11/13/17 10:45 Potassium Phosphate 30 mmol/ Sodium Chloride 260 ml @ 42 mls/hr UNSCH PRN IV 11/13/17 10:45 (SoluMEDROL INJ) 40 mg Q12H IV PUSH 11/14/17 16:00 11/15/17 16:18 (Levemir Inj) 5 units Q12HR SQ 11/14/17 11:00 11/15/17 08:16 (D50w (Vial) Inj) 50 ml UNSCH PRN IV PUSH 11/14/17 09:45 (Glucagon Inj) 1 mg UNSCH PRN OTHER 11/14/17 09:45 (NovoLIN R SUPPLEMENTAL SCALE) 1 Q4H SQ 11/14/17 11:00 11/15/17 18:23 (Free Water) 250 ml Q12HR G-TUBE 11/14/17 11:00 11/15/17 08:15 Family History Brother has fibromyalgia and muscular dystrophy. . Substance Use Tobacco:Lifetime non-smoker. Alcohol:Occasional wine with friends but no longer Prescription med abuse: None. Illicits: None. . Psychosocial History From [facility]. Has lived in [place] for approximately 15 years. to her , Daniel for 38 years. 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 . Spiritual/Cultural Factors Scientologist darrel. Welcomes Environmental Services Attendant support, requests sacrament of the sick. . Living Will: Completed, but not made available Health Care Surrogate: Completed, but not made available Health Care Surrogate(s): Patient appears capacitated to make her own health care decisions. Recommend shared decision making as patient remains intubated. Spouse unable to local written advanced directives. According to [place] statutes, healthcare proxy decision making falls to the patient's spouse, Daniel Martin. . Documented care wishes: Spouse unable to find written advance directives. . Today's verbally stated goals: Patient is able to communicate her wishes via nodding yes or no, remains intubated. Desires continued aggressive care short of NO CODE STATUS. Patient does not want chest compressions, shock, ACLS or reintubation if medically extubated. She does not want to be prolonged artificially on life support. She would not want tracheostomy/feeding tube. She indicates that if unable to be weaned from mechanical ventilation in the coming days she would want to be withdrawn from life support and be allowed to peacefully and naturally. She is willing to attempt CPAP trial this afternoon and again tomorrow if she can be sedated in between these trials as she has a significant history of anxiety/claustrophobia. Discussed with Dr. North and nursing staff. Nurse, Amaris and patient's spouse witnessed conversation with patient regarding medical treatment goals of care. Family/friends goals: Spouse supports patient wishes. . Ethical and Legal Issues Patient appears capacitated to make her own health care decisions. Recommend shared decision making as patient remains intubated. Spouse unable to local written advanced directives. According to [place] statutes, healthcare proxy decision making falls to the patient's spouse, Daniel Martin. . Physical Exam Vital Signs Date Time Temp Pulse Resp B/P (MAP) Pulse Ox O2 Delivery O2 Flow Rate FiO2 11/15/17 16:00 107 11/15/17 16:00 98.6 107 16 131/75 (93) 98 11/15/17 16:00 35 11/15/17 15:31 98 35 11/15/17 15:00 35 11/15/17 14:00 105 11/15/17 12:00 35 11/15/17 12:00 83 11/15/17 12:00 98.6 83 16 110/67 (81) 99 11/15/17 11:26 99 35 11/15/17 10:00 95 11/15/17 08:29 100 35 11/15/17 08:00 98.6 88 16 101/56 (71) 100 11/15/17 08:00 88 11/15/17 08:00 35 11/15/17 04:30 98.4 93 16 111/72 (85) 100 11/15/17 04:00 35 11/15/17 04:00 100 35 11/15/17 04:00 98.4 97 16 111/64 (80) 99 11/15/17 03:30 98.2 92 16 106/63 (77) 100 11/15/17 03:00 98.2 96 16 108/66 (80) 100 11/15/17 02:30 98.4 101 16 116/77 (90) 100 11/15/17 02:00 98.2 98 18 113/67 (82) 100 11/15/17 01:30 98.2 97 16 114/64 (81) 100 11/15/17 01:00 98.2 99 17 116/70 (85) 100 11/15/17 00:30 98.1 97 17 115/74 (88) 100 11/15/17 00:00 35 11/15/17 00:00 97 19 115/66 (82) 100 11/14/17 23:30 98.1 97 19 118/66 (83) 100 11/14/17 23:23 100 35 11/14/17 23:00 98.1 100 22 122/70 (87) 100 11/14/17 22:30 98.2 95 27 119/69 (86) 100 11/14/17 22:00 98.2 94 16 119/63 (81) 100 11/14/17 21:30 98.4 87 16 98/59 (72) 100 11/14/17 21:00 98.6 88 16 102/57 (72) 100 11/14/17 20:30 98.6 90 16 99/64 (76) 99 11/14/17 20:00 98.6 91 16 120/68 (85) 100 11/14/17 20:00 35 11/14/17 19:40 100 35 Exam CONSTITUTIONAL/GENERAL: This is a frail, elderly patient, on mechanical ventilation. Off sedation. TUBES/LINES/DRAINS: ETT, OG, right IJ central line, PIV, bilateral soft wrist restraints, Hills catheter, right chest tube, SCDs. SKIN: No jaundice, rashes, or lesions. Ecchymoses on upper extremities. No wounds seen anteriorly. Skin temperature appropriate. Not diaphoretic. HEAD: Atraumatic. Normocephalic. EYES: Bilateral conjunctiva erythematous. pupils equal and round and reactive. ENT: Hearing grossly normal. Nose without bleeding or purulent drainage. Dry oral mucosa. NECK: Trachea midline. CARDIOVASCULAR: Irregular, no murmurs noted. RESPIRATORY/CHEST: Orotracheally intubated on mechanical ventilation, diminished breath sounds bilaterally, right chest tube. GASTROINTESTINAL: Abdomen soft, non-tender, nondistended. bowel sounds hypoactive. GENITOURINARY: Without palpable bladder distension. Hills catheter in place, joanie urine. MUSCULOSKELETAL: Extremities with edema. No mottling or clubbing. LYMPHATICS: No palpable cervical or supraclavicular adenopathy. NEUROLOGICAL: Awakens easily, follows commands, nods yes/no appropriately to questions. Appropriately tearful during difficult conversation. PSYCHIATRIC: + Anxiety. . Diagnostic Tests Laboratory Laboratory Tests Test 11/12/17 20:05 11/13/17 02:10 11/13/17 07:40 11/13/17 18:15 Activated Partial Thromboplast Time 73.1 SEC (24.3-30.1) 57.6 SEC (24.3-30.1) 46.3 SEC (24.3-30.1) White Blood Count 6.5 TH/MM3 (4.0-11.0) Red Blood Count 4.89 MIL/MM3 (4.00-5.30) Hemoglobin 12.0 GM/DL (11.6-15.3) Hematocrit 37.6 % (35.0-46.0) Mean Corpuscular Volume 77.0 FL (80.0-100.0) Mean Corpuscular Hemoglobin 24.6 PG (27.0-34.0) Mean Corpuscular Hemoglobin Concent 32.0 % (32.0-36.0) Red Cell Distribution Width 19.0 % (11.6-17.2) Platelet Count 248 TH/MM3 (150-450) Mean Platelet Volume 8.0 FL (7.0-11.0) Neutrophils (%) (Auto) 90.0 % (16.0-70.0) Lymphocytes (%) (Auto) 2.4 % (9.0-44.0) Monocytes (%) (Auto) 7.5 % (0.0-8.0) Eosinophils (%) (Auto) 0.0 % (0.0-4.0) Basophils (%) (Auto) 0.1 % (0.0-2.0) Neutrophils # (Auto) 5.9 TH/MM3 (1.8-7.7) Lymphocytes # (Auto) 0.2 TH/MM3 (1.0-4.8) Monocytes # (Auto) 0.5 TH/MM3 (0-0.9) Eosinophils # (Auto) 0.0 TH/MM3 (0-0.4) Basophils # (Auto) 0.0 TH/MM3 (0-0.2) CBC Comment DIFF FINAL Differential Comment Blood Urea Nitrogen 26 MG/DL (7-18) Creatinine 0.71 MG/DL (0.50-1.00) Random Glucose 221 MG/DL (74-106) Total Protein 4.8 GM/DL (6.4-8.2) Calcium Level 7.2 MG/DL (8.5-10.1) Sodium Level 149 MEQ/L (136-145) Potassium Level 2.9 MEQ/L (3.5-5.1) Chloride Level 115 MEQ/L (98-107) Carbon Dioxide Level 25.2 MEQ/L (21.0-32.0) Anion Gap 9 MEQ/L (5-15) Estimat Glomerular Filtration Rate 79 ML/MIN (>89) Protein Corrected Calcium 8.5 MG/DL (8.5-10.1) Pleural Fluid pH 7.0 Pleural Fluid WBC 35 /MM3 (0-10) Pleural Fluid RBC 303 /MM3 (0-0) Pleural Fluid Neutrophils 11 % Pleural Fluid Lymphocytes 78 % Pleural Fluid Histiocytes 10 % Pleural Fluid Mesothelial Cells 1 % Pleural Fluid Total Protein 1.9 GM/DL Pleural Fluid LDH 69 U/L Pleural Fluid Glucose 213 MG/DL Test 11/13/17 23:35 11/14/17 05:50 11/14/17 09:30 11/14/17 13:04 Potassium Level 3.8 MEQ/L (3.5-5.1) 3.6 MEQ/L (3.5-5.1) 3.5 MEQ/L (3.5-5.1) Lactate Dehydrogenase 199 U/L (84-246) Total Protein 5.3 GM/DL (6.4-8.2) White Blood Count 7.3 TH/MM3 (4.0-11.0) Red Blood Count 5.25 MIL/MM3 (4.00-5.30) Hemoglobin 13.0 GM/DL (11.6-15.3) Hematocrit 40.6 % (35.0-46.0) Mean Corpuscular Volume 77.2 FL (80.0-100.0) Mean Corpuscular Hemoglobin 24.7 PG (27.0-34.0) Mean Corpuscular Hemoglobin Concent 32.0 % (32.0-36.0) Red Cell Distribution Width 19.3 % (11.6-17.2) Platelet Count 252 TH/MM3 (150-450) Mean Platelet Volume 7.9 FL (7.0-11.0) Neutrophils (%) (Auto) 91.7 % (16.0-70.0) Lymphocytes (%) (Auto) 2.2 % (9.0-44.0) Monocytes (%) (Auto) 6.1 % (0.0-8.0) Eosinophils (%) (Auto) 0.0 % (0.0-4.0) Basophils (%) (Auto) 0.0 % (0.0-2.0) Neutrophils # (Auto) 6.7 TH/MM3 (1.8-7.7) Lymphocytes # (Auto) 0.2 TH/MM3 (1.0-4.8) Monocytes # (Auto) 0.5 TH/MM3 (0-0.9) Eosinophils # (Auto) 0.0 TH/MM3 (0-0.4) Basophils # (Auto) 0.0 TH/MM3 (0-0.2) CBC Comment DIFF FINAL Differential Comment Blood Urea Nitrogen 24 MG/DL (7-18) Creatinine 0.64 MG/DL (0.50-1.00) Random Glucose 287 MG/DL (74-106) Calcium Level 7.5 MG/DL (8.5-10.1) Sodium Level 149 MEQ/L (136-145) Chloride Level 115 MEQ/L (98-107) Carbon Dioxide Level 25.5 MEQ/L (21.0-32.0) Anion Gap 9 MEQ/L (5-15) Estimat Glomerular Filtration Rate 90 ML/MIN (>89) Activated Partial Thromboplast Time 48.5 SEC (24.3-30.1) Test 11/15/17 05:50 11/15/17 10:20 Activated Partial Thromboplast Time 42.4 SEC (24.3-30.1) White Blood Count 9.5 TH/MM3 (4.0-11.0) Red Blood Count 5.27 MIL/MM3 (4.00-5.30) Hemoglobin 12.9 GM/DL (11.6-15.3) Hematocrit 40.8 % (35.0-46.0) Mean Corpuscular Volume 77.5 FL (80.0-100.0) Mean Corpuscular Hemoglobin 24.5 PG (27.0-34.0) Mean Corpuscular Hemoglobin Concent 31.6 % (32.0-36.0) Red Cell Distribution Width 19.4 % (11.6-17.2) Platelet Count 232 TH/MM3 (150-450) Mean Platelet Volume 8.1 FL (7.0-11.0) Neutrophils (%) (Auto) 89.8 % (16.0-70.0) Lymphocytes (%) (Auto) 2.4 % (9.0-44.0) Monocytes (%) (Auto) 7.7 % (0.0-8.0) Eosinophils (%) (Auto) 0.0 % (0.0-4.0) Basophils (%) (Auto) 0.1 % (0.0-2.0) Neutrophils # (Auto) 8.5 TH/MM3 (1.8-7.7) Lymphocytes # (Auto) 0.2 TH/MM3 (1.0-4.8) Monocytes # (Auto) 0.7 TH/MM3 (0-0.9) Eosinophils # (Auto) 0.0 TH/MM3 (0-0.4) Basophils # (Auto) 0.0 TH/MM3 (0-0.2) CBC Comment DIFF FINAL Differential Comment Blood Urea Nitrogen 24 MG/DL (7-18) Creatinine 0.48 MG/DL (0.50-1.00) Random Glucose 208 MG/DL (74-106) Calcium Level 7.5 MG/DL (8.5-10.1) Phosphorus Level 1.5 MG/DL (2.5-4.9) Magnesium Level 2.1 MG/DL (1.5-2.5) Sodium Level 146 MEQ/L (136-145) Potassium Level 4.0 MEQ/L (3.5-5.1) Chloride Level 112 MEQ/L (98-107) Carbon Dioxide Level 25.9 MEQ/L (21.0-32.0) Anion Gap 8 MEQ/L (5-15) Estimat Glomerular Filtration Rate 125 ML/MIN (>89) Result Diagram: 11/15/17 1020 11/15/17 1020 Microbiology Microbiology Date/Time Source Procedure Growth Status 11/13/17 18:15 Fluid Pleural Fluid Fungal Smear - Final NO FUNGAL ELEMENTS SEEN. Resulted 11/13/17 18:15 Fluid Pleural Fluid Fungal Culture Pending Resulted 11/13/17 18:15 Fluid Pleural Fluid Acid Fast Stain - Final NO ACID FAST BACILLI SEEN Resulted 11/13/17 18:15 Fluid Pleural Fluid Mycobacterial Culture Pending Resulted 11/13/17 18:15 Fluid Pleural Fluid Gram Stain - Final Resulted 11/13/17 18:15 Fluid Pleural Fluid Body Fluid Culture - Preliminary NO GROWTH IN 48 HOURS. Resulted Imaging Last Impressions Chest X-Ray 11/15/17 0000 Signed Impressions: CONCLUSION: Stable chest as described above. Renal Ultrasound 11/12/17 0000 Signed Impressions: CONCLUSION: 1. Ascites otherwise unremarkable. Head CT 11/11/17 1211 Signed Impressions: CONCLUSION: 1. Negative CT Head non contrast. CT Angiography 11/11/17 0000 Signed Impressions: CONCLUSION: 1. No pulmonary embolus. 2. Bilateral pleural effusions being moderate to large on the right and mild o n the left. 3. Suspected atelectasis at the posterior lower lobes bilaterally. 4. Scattered mosaic attenuation pattern typically seen with interstitial disea se and/or air trapping. Procedures * 11/13/17 - right pigtail chest tube placement * 11/11/17 - right IJ central line placement * 11/11/17 - right radial arterial line placement * 11/11/17 - intubated . Patient/Family Conference Present at Family Conference: Met with patient and her spouse. NurseAmaris also present for a portion of her conversation to witness patient wishes. . Family Conference Time (mins): 60 Family Conference Location: Bedside Issues Discussed: * Palliative care role, purpose, approach * Additional medical, psychosocial, and spiritual history * Patients general health, functional status, and cognitive changes in the months leading up to the current hospitalization * Patient/family understanding of the current medical problems * Patient/family understanding of prognosis * Patients goals of care as best understood from advance directives and/or conversations and/or values * Current medical treatment options and benefits/burdens of those options * Likely scenarios comparing ongoing aggressive care with a transition to comfort measures only * Questions answered to the best of my ability * Palliative care contact information provided Upon my arrival patient had been off sedation was awake and alert, she is able to nod yes/no appropriately. Conversation witnessed by her spouse and nurseAmaris. Patient indicates she desires NO CODE STATUS. She does not want cardiac resuscitation, chest compressions, ACLS or shock or reintubation if she is able to be medically extubated in the coming days. She is willing to consider continuation of CPAP trials in the coming days, has a long history of anxiety and requests to be re-sedated if going to be maintained on mechanical ventilation overnight. Discussed with Dr. North nursing staff. She agrees to continuation of intermittent CPAP trials. She does not want to be prolonged artificially by machines. She does not want tracheostomy/feeding tube. She would want to be allowed to pass peacefully naturally with withdrawal of life support should she not be able to be weaned from mechanical ventilation. Her supports this decision. Palliative care will continue to follow to assist with clarification of treatment goals as needed. Advised that medical team will notify the patient should it appears she will not be able to be weaned from mechanical ventilation at which point she directs that withdrawal of life support and her wishes be followed. . Assessment and Plan Disease Oriented Problem List: (1) Pneumonia (2) UTI (urinary tract infection) (3) Respiratory failure (4) Pleural effusion (5) Respiratory acidosis (6) Hypoxemia (7) Hypertension (8) Impaired mobility and activities of daily living (9) Right hemiparesis (10) Dyslipidemia (11) HTN (hypertension) (12) Muscular dystrophy (13) Atrial fibrillation Symptom Scale: (1) Dyspnea 0-10 Scale: Unable to quantify (2) Weakness 0-10 Scale: Unable to quantify (3) Pain 0-10 Scale: Unable to quantify (4) Anxiety 0-10 Scale: Unable to quantify Pertinent Non-Medical Issues Psychosocial: for 38 years. Spiritual: Scientologist darrel. Requests air cargo specialist support for sacrament of the sick. Legal:Patient appears capacitated to make her own health care decisions. Recommend shared decision making as patient remains intubated. Spouse unable to local written advanced directives. According to [place] statutes, healthcare proxy decision making falls to the patient's spouse, Daniel Martin. Ethical issues impacting care: No known concerns at this time. . Important Contacts * Daniel Martin, spouse/HCP: [phone] Prognosis Ms. Martin is a 81-year-old female with muscular dystrophy, recent stroke and prolonged rehabilitation, admitted with acute shortness of breath found to have acute hypercapnic respiratory failure, was intubated, placed on mechanical ventilation and admitted to ICU. Right chest tube in place. Patient has been failing CPAP trials. Overall prognosis appears poor for meaningful recovery given recent trajectory of decline. . Code Status: No Code Plan * Patient appears capacitated to make her own health care decisions. Recommend shared decision making as patient remains intubated. Spouse unable to local written advanced directives. According to [place] statutes, healthcare proxy decision making falls to the patient's spouse, Daniel Martin. * NO CODE - per patient wishes, supported by her spouse on 11/15/17. * Goals: Desires continued aggressive care short of NO CODE STATUS. Patient does not want chest compressions, shock, ACLS or reintubation if medically extubated. She does not want to be prolonged artificially on life support. She would not want tracheostomy/feeding tube. She indicates that if unable to be weaned from mechanical ventilation in the coming days she would want to be withdrawn from life support and be allowed to peacefully and naturally. She is willing to attempt CPAP trial this afternoon and again tomorrow if she can be sedated in between these trials as she has a significant history of anxiety/claustrophobia. Discussed with Dr. North and nursing staff. NurseAmaris and patient's spouse witnessed conversation with patient regarding medical treatment goals of care. * SYMPTOMS: Pain: Patient intermittently nods yes to pain, it appears most of her pain is secondary to ETT and OG tubes. As needed fentanyl available. Weakness: Secondary to stroke, muscular dystrophy, declining functional status. Dyspnea: On Solu-Medrol, on mechanical ventilation. Will continue CPAP trials. Anxiety: Long history of anxiety/claustrophobia. Propofol and lorazepam available. Will restart propofol if patient fails CPAP trial this afternoon. * Palliative care number provided. * Palliative care will continue to follow throughout hospital course to assist with further clarification of adequate treatment goals and symptom management. . Thank you for the opportunity to participate in the care of Ms. Martin. Attestation To help prompt me to consider important information that might be impacting today's encounter and assessment, information from prior notes written by myself or my colleagues may have been "brought forward" into today's note. My signature on this note, however, is an attestation that I personally performed the exam, history, and/or decision-making noted today, and, unless otherwise indicated, the interactions with patient, family, and staff as well as the review of records all occurred today. I also attest that the listed assessment and stated plan reflect my best clinical judgment today based on the combination of historical information, prior notes, and today's exam/ interactions. When time spent is documented, it refers only to time spent today by the signer, or if indicated, combined time spent today by collaborating physician/nurse practitioner. Rocio Vanessa Nov 15, 2017 18:59
--- NOTE | 2017-11-15 22:06 | HHI.PR ---
Subjective Remarks Same No significant events overnight chest tube with significant drainage. still Objective Vital Signs Date Time Temp Pulse Resp B/P (MAP) Pulse Ox O2 Delivery O2 Flow Rate FiO2 11/15/17 20:02 98 35 11/15/17 18:00 104 11/15/17 16:00 107 11/15/17 16:00 98.6 107 16 131/75 (93) 98 11/15/17 16:00 35 11/15/17 15:31 98 35 11/15/17 15:00 35 11/15/17 14:00 105 11/15/17 12:00 35 11/15/17 12:00 83 11/15/17 12:00 98.6 83 16 110/67 (81) 99 11/15/17 11:26 99 35 11/15/17 10:00 95 11/15/17 08:29 100 35 11/15/17 08:00 98.6 88 16 101/56 (71) 100 11/15/17 08:00 88 11/15/17 08:00 35 11/15/17 04:30 98.4 93 16 111/72 (85) 100 11/15/17 04:00 35 11/15/17 04:00 100 35 11/15/17 04:00 98.4 97 16 111/64 (80) 99 11/15/17 03:30 98.2 92 16 106/63 (77) 100 11/15/17 03:00 98.2 96 16 108/66 (80) 100 11/15/17 02:30 98.4 101 16 116/77 (90) 100 11/15/17 02:00 98.2 98 18 113/67 (82) 100 11/15/17 01:30 98.2 97 16 114/64 (81) 100 11/15/17 01:00 98.2 99 17 116/70 (85) 100 11/15/17 00:30 98.1 97 17 115/74 (88) 100 11/15/17 00:00 35 11/15/17 00:00 97 19 115/66 (82) 100 11/14/17 23:30 98.1 97 19 118/66 (83) 100 11/14/17 23:23 100 35 11/14/17 23:00 98.1 100 22 122/70 (87) 100 11/14/17 22:30 98.2 95 27 119/69 (86) 100 I/O 11/14/17 11/14/17 11/14/17 11/15/17 11/15/17 11/15/17 07:00 15:00 23:00 07:00 15:00 23:00 Intake Total 766 ml 786 ml 1143 ml 781 ml Output Total 425 ml 1680 ml 1330 ml 580 ml Balance 341 ml -894 ml -187 ml 201 ml Intake Oral 0 ml IV Total 350 ml 321 ml Tube Feeding 416 ml 536 ml 562 ml 531 ml Other 250 ml 260 ml 250 ml Output Urine Total 350 ml 1650 ml 1300 ml 550 ml Chest Tube Drainage Total 75 ml 30 ml 30 ml 30 ml # Bowel Movements 0 0 0 0 Result Diagram: 11/15/17 1020 11/15/17 1020 Objective Remarks Physical exam: General appearance: Intubated Head and neck examination: ET tube pump Neck: [supple trachea midline] Lungs: No wheezing heard, significant decrease of breath sounds over the right side Chest tube in place on the right side pleural fluid is joanie in color Heart: [normal S1-S2] Abdomen: [soft nontender positive bowel sounds] Extremities: [no significant edema no cyanosis] Neurological examination: Sedated on mechanical ventilator Skin: [no rashes seen] Assessment and Plan Assessment and Plan 1. Ventilator-dependent respiratory failure. 2. Bilateral pleural effusions, more on the right side./ transudative 3. Pulmonary hypertension. 4. Severe tricuspid regurgitation. 5. Muscle dystrophy. 6. Coagulopathy secondary to Eliquis. Continue current plan of care keep chest tube and continue draining of the pleural fluid Medical care as per the senior receptionist We will continue to follow discussed with the at the bedside in details. Discussed with the nurse as well. poor prx Ellis Gray MD Nov 15, 2017 22:06
[2017-11-15] MEDS: HEPARIN-D5W 25,000 U/250 ML 250 ML IV PRN (23:49)
[2017-11-16] VITALS (37 sets, daily range): BP systolic 97–137; BP diastolic 55–86; PULSE 79–101; RESP 16–18; TEMP 98.3; O2SAT 98–100
[2017-11-16] MEDS: INSULIN NovoLIN REGULAR SUPPLEMENTAL SCALE SQ SCH ×6 (03:00→23:38)
[2017-11-16] MEDS: methylPREDNISolone SOD SUCC 125 MG/2 ML VIAL IV PUSH SCH ×2 (03:18→16:53)
[2017-11-16] MEDS: PROPOFOL 1000 MG/100 ML INJ 100 ML IV PRN ×3 (03:18→21:58)
[2017-11-16] MEDS: CHLORHEXIDINE GLUCONATE 2 % 1 PACK (2 CLOTHS)(taper/protocol) TOPICAL SCH (03:18)
[2017-11-16] MEDS: CEFEPIME INJ 2,000 MG in SODIUM CHLORIDE 0.9% INJ 100 ML IV SCH ×3 (03:19→21:52)
--- NOTE | 2017-11-16 04:29 | RADRPT ---
EXAM DATE: 11/16/2017 4:26 AM EDT AGE/SEX: 81 years / Female INDICATIONS: Short of breath. CLINICAL DATA: This is the patient's subsequent encounter. Patient reports that signs and symptoms h ave been present for 1 week and indicates a pain score of 0/10. MEDICAL/SURGICAL HISTORY: Hypertension. CVA. Hysterectomy. section. Bilateral hip re placements, left knee replacement. COMPARISON: [facility] [place] CHEST SINGLE AP, 11/15/2017. . FINDINGS: Single AP view the chest. Endotracheal tube, nasogastric tube, and right IJ central venous catheter r emain in place along with right-sided chest tube. Small left pleural effusion unchanged. Left lower l jaki parenchymal opacity also unchanged. No evidence of pneumothorax. CONCLUSION: 1. Right-sided chest tube remains in place. No evidence of pneumothorax. 2. Left lung base parenchymal opacity and small left pleural effusion unchanged. Electronically signed by: Darrius Barlow MD 11/16/2017 4:28 AM EDT
[2017-11-16 05:35] LABS: BASOPHIL % 0.1 % (0.0-2.0); EOSINOPHIL % 0.1 % (0.0-4.0); HEMATOCRIT 39.5 % (35.0-46.0); HEMOGLOBIN 12.7 GM/DL (11.6-15.3); LYMPH % 3.6 % (9.0-44.0); LYMPHOCYTE # 0.3 TH/MM3 (1.0-4.8); MEAN CELL VOLUME 77.3 FL (80.0-100.0); MEAN CORPUSCULAR HEMOGLOBIN 24.8 PG (27.0-34.0); MEAN CORPUSCULAR HGB CONC 32.1 % (32.0-36.0); MEAN PLATELET VOLUME 8.1 FL (7.0-11.0); MONO % 5.6 % (0.0-8.0); MONOCYTE # 0.5 TH/MM3 (0-0.9); NEUT % 90.6 % (16.0-70.0); PLATELET COUNT 214 TH/MM3 (150-450); RED CELL DISTRIBUTION WIDTH 19.8 % (11.6-17.2); WHITE BLOOD COUNT 8.8 TH/MM3 (4.0-11.0)
[2017-11-16 05:51] LABS: BICARBONATE 29.4 MEQ/L (21.0-32.0); CALCIUM 7.5 MG/DL (8.5-10.1); CREATININE 0.43 MG/DL (0.50-1.00); MAGNESIUM 2.1 MG/DL (1.5-2.5); PHOSPHORUS 1.5 MG/DL (2.5-4.9)
[2017-11-16] MEDS: SODIUM CHLORIDE 0.9% FLUSH 10 ML FLUSH IV FLUSH SCH ×2 (07:45→20:57)
[2017-11-16] MEDS: FREE WATER G-TUBE SCH ×2 (07:45→23:38)
[2017-11-16] MEDS: FAMOTIDINE 20 MG/2 ML VIAL IV PUSH SCH ×2 (07:45→20:56)
[2017-11-16] MEDS: TIMOLOL MALEATE 0.25% OPHT SOLN 5 ML BTL EACH EYE SCH ×2 (07:46→21:52)
[2017-11-16] MEDS: ERYTHROMYCIN 0.5% OPTH OINT 3.5 GM TUBO EACH EYE SCH ×2 (07:46→21:52)
[2017-11-16] MEDS: CHLORHEXIDINE 0.12% (ORAL KIT) 15 ML CUP MT SCH ×2 (07:46→20:55)
[2017-11-16] MEDS: INSULIN DETEMIR 100 UNITS/ML VIAL SQ SCH ×2 (07:47→20:57)
--- NOTE | 2017-11-16 14:01 | HHI.HCPN ---
Palliative care supportive visit with Mrs. Martin. Patient seen in [facility], on mechanical ventilator, tolerating CPAP trails during my visit. She appears comfortable, no signs of distress. at bedside and confirms he feels she is comfortable at this time. Tells me he is hopeful she will continue to tolerate CPAP trails and be able to come off the ventilator. He denies any questions or concerns at this time. Verbalizes understanding and confirms plan to allow a day or so to see how Mrs. Martin does. Offered emotional support through active listening. appreciative of time spent. Mr. Martin requests follow-up tomorrow, 11/17 after 4pm when he will be at the hospital. Palliative care number provided. Palliative care will continue to follow throughout hospitalization. Kenna Maher, COURT CLERK Nov 16, 2017 14:01
[2017-11-16] MEDS: AZITHROMYCIN INJ 500 MG in SODIUM CHLOR 0.9% 250 ML INJ 250 ML IV SCH (16:53)
--- NOTE | 2017-11-16 18:51 | HHI.CCPN ---
Subjective Remarks/Hospital Course 81-year-old female presents from home via EMS due to respiratory distress. She was most recently admitted to [facility] 06/15/17 due to acute ischemic stroke and underwent IR embolectomy. She also has a history of muscular dystrophy, glaucoma, hypertension, hyperlipidemia, hypothyroidism, atrial fibrillation on chronic anticoagulation with Eliquis. After her stroke she was treated at [facility] and was discharged to home July 10, 2017. Her states she has generally been getting "weaker" over the last couple of weeks and has not been eating as much. She has complained of nausea but has not had any vomiting, diarrhea, abdominal pain, cough, fever, headache or chest pain. She has had decreased mobility over the last couple of weeks. Apparently she was able to use a walker when she left [place] but now she has had difficulty transferring to a wheelchair. Because of her decreased mobility a Hills was placed on Thursday 11/09. She also has decubitus ulcers on her buttocks and was receiving home health care to help manage her wounds. Earlier this morning home health came to assist her with her bath and reportedly sats were in the 80s. Subsequently home health came to assist with managing her wounds and reportedly sats were in the 50s. She was brought to the emergency department where she was lethargic on arrival and had acute hypercapnic respiratory failure with pH 7.22/PaCO2 of 76/PaO2 of 70 on 5 L nasal cannula. Chest x-ray demonstrated opacification of the right lower lobe which may be a combination of consolidation and effusion. She was placed on BiPAP and was initially going to be admitted to the hospitalist service on [facility].. She became hypotensive and unresponsive and so she was intubated. There is been difficulty obtaining cuff pressures and radial art line was attempted but unsuccessful. She has been started on Levophed. She has received normal saline total of 2 L bolus. I have placed a central line and art line. She will be admitted to [facility] [place]. 11/12 Off levophed. R pleural effusion needs drainage but waiting 48 hours after eliquis. UOP improved. Initiating tube feeds. 11/13 Held heparin and I performed R pigtail catheter R chest this evening with drainage of >650 serous fluid so far. Will CPAP tomorrow and see if able to extubate. 11/14 Patient remains intubated and sedated. On Heparin drip. 11/15 No events overnight. Sedated with Diprivan and intubated. Did not tolerate CPAP trials yesterday. Afebrile. On Heparin drip. Subjective: 11/16: no improvements. still failing CPAP trials. encephalopathy persists. Objective Vital Signs Date Time Temp Pulse Resp B/P (MAP) Pulse Ox O2 Delivery O2 Flow Rate FiO2 11/16/17 16:28 100 35 11/16/17 12:00 81 11/16/17 12:00 98.3 16 123/74 (90) Intake and Output 11/16/17 11/16/17 11/16/17 07:59 15:59 23:59 Intake Total 1078 ml Output Total 545 ml Balance 533 ml Result Diagram: 11/16/17 0511/16/17 05 Imaging Last Impressions Chest X-Ray 11/13/17 0000 Signed Impressions: CONCLUSION: Placement of small-caliber right chest tube with marked improvement in right pl eural effusion. Small left effusion with basilar consolidation. Endotracheal tu be, nasogastric tube and right central line unchanged. Renal Ultrasound 11/12/17 0000 Signed Impressions: CONCLUSION: 1. Ascites otherwise unremarkable. Head CT 11/11/17 1211 Signed Impressions: CONCLUSION: 1. Negative CT Head non contrast. CT Angiography 11/11/17 0000 Signed Impressions: CONCLUSION: 1. No pulmonary embolus. 2. Bilateral pleural effusions being moderate to large on the right and mild o n the left. 3. Suspected atelectasis at the posterior lower lobes bilaterally. 4. Scattered mosaic attenuation pattern typically seen with interstitial disea se and/or air trapping. Objective Remarks GENERAL: Elderly under nourished appearing frail female who is orotracheally intubated. SKIN: Skin perfused. HEAD: Atraumatic. Normocephalic. EYES: Right pupil is pinpoint, left pupil is 2 mm sluggishly reactive to 1 mm. Bilateral conjunctive is extremely erythematous and inflamed appearing. No exudate. ENT: No nasal bleeding or discharge. Mucous membranes dry NECK: Trachea midline. No JVD. CARDIOVASCULAR: Irregularly irregular. afib. RESPIRATORY: Orotracheally intubated on mechanical ventilation. No significant secretions with suctioning. Diminished breath sounds bilaterally. No wheezes rales GASTROINTESTINAL: Abdomen soft, non-tender, nondistended. Vertical scar infraumbilical. : Hills in place with yellow urine output. MUSCULOSKELETAL: Extremities without clubbing, cyanosis 2+ edema bilateral lower extremities below the knee. NEUROLOGICAL: Eyes are spontaneously open and states that she often sleeps this way. Withdraws with all extremities to noxious stimuli. Not following commands or purposeful. Now on propofol for sedation A/P Assessment and Plan NEURO: Muscular dystrophy Prior stroke June 2017 Acute encephalopathy Propofol for sedation. Target RASS -[address] brain 11/11 - no acute abnormality RESP: Acute hypercapnic respiratory failure Bilateral pleural effusions, Bilateral consolidations/atelectasis PRVC RR 16, TV 450, IT:1.0, PEEP:5, FIO2: 35% Continue with vent support keep sats >92% ventilator bundle, DuoNeb every 4 hours, albuterol every 2 hours as needed. SBT as burke. Pulmonology following, Dr. Gray. Solumederol 40mg Q12 s/p Right pigtail catheter placement 11/13 for plerual effusion 650ml pleural fluid removed ( transudative effusion) Monitor drainage CV: Atrial fibrillation Pulmonary Hypertension Severe TR Serial torponin negative. 2D echo from 06/16/17mild concentric LVH. EF 60-65%. Mild left atrial dilation. Moderate thickening of mitral valve. Severe tricuspid regurg. Pulmonary artery pressure 52.8 mm She is chronically on Eliquis on hold. Continue with heparin drip as she is at high risk of stroke. GI: Orogastric tube. Jevity 1.5@ 50 mL/h per nutrition recommendations FEN/RENAL: Acute kidney-improving Monitor renal function, I/O's, electrolytes replacement as needed Renal ultrasound no hydronephrosis, Urine eosinophil negative. start lasix 40mg iv q12h. increase Free water to 300mL q6h monitor sodium level. ID: UTI Aspiration versus community-acquired pneumonia Hills was replaced in the emergency department 11/11 Blood cultures no growth to date. Urine culture with group D enterococcus. 11/11 Urine Legionella and pneumococcal antigen negative, Sputum culture NGTD. Received ceftriaxone and azithromycin in the emergency department. On Cefepime, azithromycin monitor for signs of infections ( Fever, WBC): 11/17 will be complete 7 days of therapy. will d/c abx 11/17. Conjunctivitis/probable keratitis secondary to inability to close eyes completely. Patient previously refused surgical intervention for this Erythromycin ophthalmic twice daily Levofloxacin ocular drops Glaucoma Continue timolol 0.25% ophthalmic each eye every 12 hours HEME: Chronic anticoagulation with Eliquis for atrial fibrillation and history of stroke Eliquis held, on Heparin drip as per above Monitor CBC, coags ENDO: Increase SSI to medium scale, add Levemir 5units Q12 and pater steroids for glycemic control Hypothyroidism TSH:4.2 on 11/11 PROPH: SCDs for DVT prophylaxis. Heparin drip as per above. Famotidine for stress ulcer prophylaxis ACCESS: Right IJ central venous line placed 11/11: d/c today. no indication for CVL. Per Dr. Higuera: Her states she previously made advanced directives but they cannot be obtained because they are in a home in [place] and they no longer have access to them. He says he does not know which hospital she was in when she made them and does not believe that they were drawn up by an deputy commonwealth's attorney that would have a copy. He states that he is familiar with her wishes and that she would wish to be full code but did not want prolonged life support "if there was no hope of getting better". Consult palliative care. Harman Kyle MD Nov 16, 2017 18:51
[2017-11-16] MEDS: FUROSEMIDE 40 MG/4 ML VIAL IV PUSH SCH (20:55)
[2017-11-17] VITALS (25 sets, daily range): BP systolic 106–130; BP diastolic 65–75; PULSE 72–104; RESP 16–37; O2SAT 91–100
[2017-11-17] MEDS: INSULIN NovoLIN REGULAR SUPPLEMENTAL SCALE SQ SCH ×6 (03:05→23:00)
[2017-11-17] MEDS: CEFEPIME INJ 2,000 MG in SODIUM CHLORIDE 0.9% INJ 100 ML IV SCH ×3 (03:06→20:12)
[2017-11-17] MEDS: methylPREDNISolone SOD SUCC 125 MG/2 ML VIAL IV PUSH SCH ×2 (03:06→15:13)
[2017-11-17 03:39] LABS: HEMATOCRIT 40.4 % (35.0-46.0); HEMOGLOBIN 12.6 GM/DL (11.6-15.3); MEAN CELL VOLUME 78.5 FL (80.0-100.0); MEAN CORPUSCULAR HEMOGLOBIN 24.5 PG (27.0-34.0); MEAN CORPUSCULAR HGB CONC 31.2 % (32.0-36.0); MEAN PLATELET VOLUME 8.6 FL (7.0-11.0); PLATELET COUNT 201 TH/MM3 (150-450); RED BLOOD COUNT 5.15 MIL/MM3 (4.00-5.30); RED CELL DISTRIBUTION WIDTH 20.2 % (11.6-17.2)
[2017-11-17 04:03] LABS: CALCIUM 7.3 MG/DL (8.5-10.1); CREATININE 0.46 MG/DL (0.50-1.00)
[2017-11-17 04:16] LABS: CALCIUM-PROTEIN CORRECTED 8.5 MG/DL (8.5-10.1); TOTAL PROTEIN 4.9 GM/DL (6.4-8.2)
[2017-11-17] MEDS: PROPOFOL 1000 MG/100 ML INJ 100 ML IV PRN ×3 (05:31→22:35)
[2017-11-17] MEDS: FREE WATER G-TUBE SCH ×4 (05:31→23:42)
[2017-11-17] MEDS: INSULIN DETEMIR 100 UNITS/ML VIAL SQ SCH ×2 (08:30→20:12)
[2017-11-17] MEDS: TIMOLOL MALEATE 0.25% OPHT SOLN 5 ML BTL EACH EYE SCH ×2 (08:30→20:04)
[2017-11-17] MEDS: SODIUM CHLORIDE 0.9% FLUSH 10 ML FLUSH IV FLUSH SCH ×2 (08:30→20:04)
[2017-11-17] MEDS: ERYTHROMYCIN 0.5% OPTH OINT 3.5 GM TUBO EACH EYE SCH ×2 (08:30→20:04)
[2017-11-17] MEDS: FAMOTIDINE 20 MG/2 ML VIAL IV PUSH SCH ×2 (08:31→20:12)
[2017-11-17] MEDS: FUROSEMIDE 40 MG/4 ML VIAL IV PUSH SCH ×2 (08:32→23:42)
[2017-11-17] MEDS: CHLORHEXIDINE 0.12% (ORAL KIT) 15 ML CUP MT SCH ×2 (08:32→21:34)
[2017-11-17] MEDS: HEPARIN-D5W 25,000 U/250 ML 250 ML IV PRN (15:06)
--- NOTE | 2017-11-17 17:53 | HHI.PR ---
Subjective Remarks No significant events overnight chest tube with significant drainage. still Objective Vital Signs Date Time Temp Pulse Resp B/P (MAP) Pulse Ox O2 Delivery O2 Flow Rate FiO2 11/17/17 16:00 98.1 87 16 117/67 (84) 100 11/17/17 16:00 35 11/17/17 16:00 87 11/17/17 15:55 94 35 11/17/17 14:00 72 11/17/17 12:00 98.1 101 16 106/69 (81) 96 11/17/17 12:00 35 11/17/17 12:00 101 11/17/17 11:14 99 35 11/17/17 10:00 98 11/17/17 10:00 87 11/17/17 08:45 35 11/17/17 08:30 35 11/17/17 08:27 35 11/17/17 08:00 87 11/17/17 08:00 35 11/17/17 08:00 98.2 95 16 130/70 (90) 99 11/17/17 07:58 99 35 11/17/17 06:00 77 11/17/17 04:14 98.6 91 17 129/73 (91) 91 11/17/17 04:00 87 11/17/17 04:00 35 11/17/17 04:00 98.6 95 37 97 11/17/17 03:37 99 35 11/17/17 03:30 98.8 89 16 114/67 (83) 99 11/17/17 03:00 98.8 91 16 115/75 (88) 98 11/17/17 02:30 99.0 90 16 115/74 (88) 98 11/17/17 02:00 99.0 93 16 114/71 (85) 98 11/17/17 02:00 95 11/17/17 01:31 99.1 94 16 122/74 (90) 97 11/17/17 01:30 99.1 90 16 98 11/17/17 01:00 99.1 91 16 116/68 (84) 98 11/17/17 00:30 99.0 95 16 120/74 (89) 99 11/17/17 00:00 104 11/17/17 00:00 99.0 91 16 114/69 (84) 99 11/17/17 00:00 35 11/16/17 23:30 99.0 92 16 114/75 (88) 99 11/16/17 23:23 100 35 11/16/17 23:00 98.8 90 16 114/72 (86) 100 11/16/17 22:30 98.6 91 16 123/67 (85) 100 11/16/17 22:00 101 11/16/17 21:15 98.4 91 16 137/86 (103) 100 11/16/17 21:00 98.6 99 17 128/72 (90) 99 11/16/17 20:45 98.6 91 16 126/72 (90) 100 11/16/17 20:30 98.4 88 16 129/70 (89) 100 11/16/17 20:15 98.4 91 16 115/69 (84) 100 11/16/17 20:00 35 11/16/17 20:00 98.4 89 16 134/74 (94) 100 11/16/17 20:00 89 11/16/17 19:45 98.4 89 16 122/70 (87) 99 11/16/17 19:38 99 35 11/16/17 19:30 98.4 93 16 129/71 (90) 99 11/16/17 19:15 98.4 92 18 124/77 (93) 99 11/16/17 19:00 98.2 91 16 109/55 (73) 100 11/16/17 18:45 98.2 91 16 126/70 (88) 99 11/16/17 18:30 98.2 94 18 121/69 (86) 100 11/16/17 18:15 98.2 87 16 122/67 (85) 100 11/16/17 18:00 90 11/16/17 18:00 98.2 90 18 112/66 (81) 100 I/O 11/16/17 11/16/17 11/16/17 11/17/17 11/17/17 11/17/17 07:00 15:00 23:00 07:00 15:00 23:00 Intake Total 1323 ml 1626 ml 720 ml 107 ml Output Total 545 ml 300 ml 1870 ml Balance 778 ml 1326 ml -1150 ml 107 ml Intake Oral 0 ml IV Total 491 ml 800 ml 100 ml 107 ml Tube Feeding 572 ml 576 ml 420 ml Other 260 ml 250 ml 200 ml Output Urine Total 475 ml 250 ml 1850 ml Chest Tube Drainage Total 70 ml 50 ml 20 ml # Bowel Movements 1 0 Result Diagram: 11/17/1729911/17/17299 Objective Remarks Physical exam: General appearance: Intubated Head and neck examination: ET tube pump Neck: [supple trachea midline] Lungs: No wheezing heard, significant decrease of breath sounds over the right side Chest tube in place on the right side pleural fluid is joanie in color Heart: [normal S1-S2] Abdomen: [soft nontender positive bowel sounds] Extremities: [no significant edema no cyanosis] Neurological examination: Sedated on mechanical ventilator Skin: [no rashes seen] Assessment and Plan Assessment and Plan 1. Ventilator-dependent respiratory failure. 2. Bilateral pleural effusions, more on the right side./ transudative 3. Pulmonary hypertension. 4. Severe tricuspid regurgitation. 5. Muscle dystrophy. 6. Coagulopathy secondary to Eliquis. Continue current plan of care chest tube and continue draining of the pleural fluid Medical care as per the order editor We will continue to follow no new recs from pulm perspective at this point poor prx Ellis Gray MD Nov 17, 2017 17:53
--- NOTE | 2017-11-17 18:10 | HHI.CCPN ---
Subjective Remarks/Hospital Course 81-year-old female presents from home via EMS due to respiratory distress. She was most recently admitted to [facility] 06/15/17 due to acute ischemic stroke and underwent IR embolectomy. She also has a history of muscular dystrophy, glaucoma, hypertension, hyperlipidemia, hypothyroidism, atrial fibrillation on chronic anticoagulation with Eliquis. After her stroke she was treated at [facility] and was discharged to home July 10, 2017. Her states she has generally been getting "weaker" over the last couple of weeks and has not been eating as much. She has complained of nausea but has not had any vomiting, diarrhea, abdominal pain, cough, fever, headache or chest pain. She has had decreased mobility over the last couple of weeks. Apparently she was able to use a walker when she left [place] but now she has had difficulty transferring to a wheelchair. Because of her decreased mobility a Hills was placed on Thursday 11/09. She also has decubitus ulcers on her buttocks and was receiving home health care to help manage her wounds. Earlier this morning home health came to assist her with her bath and reportedly sats were in the 80s. Subsequently home health came to assist with managing her wounds and reportedly sats were in the 50s. She was brought to the emergency department where she was lethargic on arrival and had acute hypercapnic respiratory failure with pH 7.22/PaCO2 of 76/PaO2 of 70 on 5 L nasal cannula. Chest x-ray demonstrated opacification of the right lower lobe which may be a combination of consolidation and effusion. She was placed on BiPAP and was initially going to be admitted to the hospitalist service on [facility].. She became hypotensive and unresponsive and so she was intubated. There is been difficulty obtaining cuff pressures and radial art line was attempted but unsuccessful. She has been started on Levophed. She has received normal saline total of 2 L bolus. I have placed a central line and art line. She will be admitted to [facility]. 11/12 Off levophed. R pleural effusion needs drainage but waiting 48 hours after eliquis. UOP improved. Initiating tube feeds. 11/13 Held heparin and I performed R pigtail catheter R chest this evening with drainage of >650 serous fluid so far. Will CPAP tomorrow and see if able to extubate. 11/14 Patient remains intubated and sedated. On Heparin drip. 11/15 No events overnight. Sedated with Diprivan and intubated. Did not tolerate CPAP trials yesterday. Afebrile. On Heparin drip. 11/16: no improvements. still failing CPAP trials. encephalopathy persists. Subjective: 11/17: no changes or improvements. fails CPAP trials- unable to wean pressure support. long discussion with today- I do not think she will successfully separate from mechanical ventilation. Objective Vital Signs Date Time Temp Pulse Resp B/P (MAP) Pulse Ox O2 Delivery O2 Flow Rate FiO2 11/17/17 16:00 98.1 87 16 117/67 (84) 100 11/17/17 16:00 35 Intake and Output 11/17/17 11/17/17 11/18/17 08:00 16:00 00:00 Intake Total 720 ml 107 ml Output Total 995 ml Balance -275 ml 107 ml Result Diagram: 11/17/17 0300 11/17/17 0300 Imaging Last Impressions Chest X-Ray 11/13/17 0000 Signed Impressions: CONCLUSION: Placement of small-caliber right chest tube with marked improvement in right pl eural effusion. Small left effusion with basilar consolidation. Endotracheal tu be, nasogastric tube and right central line unchanged. Renal Ultrasound 11/12/17 0000 Signed Impressions: CONCLUSION: 1. Ascites otherwise unremarkable. Head CT 11/11/17 1211 Signed Impressions: CONCLUSION: 1. Negative CT Head non contrast. CT Angiography 11/11/17 0000 Signed Impressions: CONCLUSION: 1. No pulmonary embolus. 2. Bilateral pleural effusions being moderate to large on the right and mild o n the left. 3. Suspected atelectasis at the posterior lower lobes bilaterally. 4. Scattered mosaic attenuation pattern typically seen with interstitial disea se and/or air trapping. Objective Remarks GENERAL: Elderly under nourished appearing frail female who is orotracheally intubated. SKIN: Skin perfused. HEAD: Atraumatic. Normocephalic. EYES: Right pupil is pinpoint, left pupil is 2 mm sluggishly reactive to 1 mm. Bilateral conjunctive is extremely erythematous and inflamed appearing. No exudate. ENT: No nasal bleeding or discharge. Mucous membranes dry NECK: Trachea midline. No JVD. CARDIOVASCULAR: Irregularly irregular. afib. RESPIRATORY: Orotracheally intubated on mechanical ventilation. No significant secretions with suctioning. Diminished breath sounds bilaterally. No wheezes rales GASTROINTESTINAL: Abdomen soft, non-tender, nondistended. Vertical scar infraumbilical. : Hills in place with yellow urine output. MUSCULOSKELETAL: Extremities without clubbing, cyanosis 2+ edema bilateral lower extremities below the knee. NEUROLOGICAL: Eyes are spontaneously open and states that she often sleeps this way. Withdraws with all extremities to noxious stimuli. Not following commands or purposeful. Now on propofol for sedation A/P Assessment and Plan NEURO: Muscular dystrophy Prior stroke June 2017 Acute encephalopathy Propofol for sedation. Target RASS -[address] brain 11/11 - no acute abnormality RESP: Acute hypercapnic respiratory failure Bilateral pleural effusions, Bilateral consolidations/atelectasis PRVC RR 16, TV 450, IT:1.0, PEEP:5, FIO2: 35% Continue with vent support keep sats >92% ventilator bundle, DuoNeb every 4 hours, albuterol every 2 hours as needed. SBT as burke. Pulmonology following, Dr. Gray. Solumederol 40mg Q12 s/p Right pigtail catheter placement 11/13 for plerual effusion 650ml pleural fluid removed ( transudative effusion) Monitor drainage CV: Atrial fibrillation Pulmonary Hypertension Severe TR Serial torponin negative. 2D echo from 06/16/17mild concentric LVH. EF 60-65%. Mild left atrial dilation. Moderate thickening of mitral valve. Severe tricuspid regurg. Pulmonary artery pressure 52.8 mm She is chronically on Eliquis on hold. Continue with heparin drip as she is at high risk of stroke. GI: Orogastric tube. Jevity 1.5@ 50 mL/h per nutrition recommendations FEN/RENAL: Acute kidney-improving Monitor renal function, I/O's, electrolytes replacement as needed Renal ultrasound no hydronephrosis, Urine eosinophil negative. lasix 40mg iv increase to q8h diamox 500mg iv x 1. Free water to 300mL q6h monitor sodium level. ID: [id number] Aspiration versus community-acquired pneumonia Hills was replaced in the emergency department 11/11 Blood cultures no growth to date. Urine culture with group D enterococcus. 11/11 Urine Legionella and pneumococcal antigen negative, Sputum culture NGTD. Received ceftriaxone and azithromycin in the emergency department. On Cefepime, azithromycin monitor for signs of infections ( Fever, WBC): 11/17 will be complete 7 days of therapy. will d/c abx 11/17. Conjunctivitis/probable keratitis secondary to inability to close eyes completely. Patient previously refused surgical intervention for this Erythromycin ophthalmic twice daily Levofloxacin ocular drops Glaucoma Continue timolol 0.25% ophthalmic each eye every 12 hours HEME: Chronic anticoagulation with Eliquis for atrial fibrillation and history of stroke Eliquis held, on Heparin drip as per above Monitor CBC, coags ENDO: SSI medium scale, Levemir 5units Q12 for glycemic control Hypothyroidism TSH:4.2 on 11/11 PROPH: SCDs for DVT prophylaxis. Heparin drip as per above. Famotidine for stress ulcer prophylaxis ACCESS: piv Per Dr. Higuera: Her states she previously made advanced directives but they cannot be obtained because they are in a home in [place] and they no longer have access to them. He says he does not know which hospital she was in when she made them and does not believe that they were drawn up by an deputy attorney general that would have a copy. He states that he is familiar with her wishes and that she would wish to be full code but did not want prolonged life support "if there was no hope of getting better". Consult palliative care. Harman Kyle MD Nov 17, 2017 18:10
--- NOTE | 2017-11-17 19:41 | HHI.HCPN ---
Reason for visit a. To assist with evaluation and management of symptoms including: dyspnea, anxiety, weakness, pain. b. To assist medical decision maker(s) with: better understanding of current medical conditions; weighing benefits/burdens of medical treatment options; making medical treatment decisions. . Subjective/Interval History Patient seen and examined in ICU. , Daniel at bedside. On mech vent, FiO2 35%. Tolerated CPAP for about 2 hours per nurse. Now lightly sedated for tachypnea/ anxiety post CPAP trial. . Patient is awake. Seems to fall off to sleep intermittently during my visit. She is easily arousable. Answer some questions by nodding yes/no. She denies pain. Nods yes to anxiety and SOB, unable to quantify or qualify as she remains intubated on mech vent. Vital signs stable. Labs stable. Total protein 4.9. No new imaging. Patient appeared to want to tell us something, unable to determine what she is trying to say. Patient previously wanted to know if her condition was such that she could not be weaned from mechanical ventilation to be notified as she did not want to be prolonged artificially by machines. Following my visit I discussed with Dr. Kyle, patient does not appear to be able to be weaned from mechanical ventilation. Overall prognosis poor. Plan to meet with spouse after he has had the opportunity to speak with Dr. Maher, upon my arrival back to the room spouse had reportedly left for the day. Palliative care will follow up on 11/18/17 for further clarification of treatment goals. . . Family/friend interactions See interval note. Advance Directives Living Will: Completed, but not made available Health Care Surrogate: Completed, but not made available Advance Directive Specifics Health Care Surrogate(s): Patient appears capacitated to make her own health care decisions. Recommend shared decision making as patient remains intubated. Spouse unable to local written advanced directives. According to [place] statutes, healthcare proxy decision making falls to the patient's spouse, Daniel Martin. . Documented care wishes: Spouse unable to find written advance directives. . Significant change in goals: NO CODE (DNR/DNI). Palliative care will attempt to meet with patient and her again on 11/18/17 to further clarify treatment goals. . Objective Vital Signs Date Time Temp Pulse Resp B/P (MAP) Pulse Ox O2 Delivery O2 Flow Rate FiO2 11/17/17 18:00 87 11/17/17 16:00 98.1 87 16 117/67 (84) 100 11/17/17 16:00 35 11/17/17 16:00 87 11/17/17 15:55 94 35 11/17/17 14:00 72 11/17/17 12:00 98.1 101 16 106/69 (81) 96 11/17/17 12:00 35 11/17/17 12:00 101 11/17/17 11:14 99 35 11/17/17 10:00 98 11/17/17 10:00 87 11/17/17 08:45 35 11/17/17 08:30 35 11/17/17 08:27 35 11/17/17 08:00 87 11/17/17 08:00 35 11/17/17 08:00 98.2 95 16 130/70 (90) 99 11/17/17 07:58 99 35 11/17/17 06:00 77 11/17/17 04:14 98.6 91 17 129/73 (91) 91 11/17/17 04:00 87 11/17/17 04:00 35 11/17/17 04:00 98.6 95 37 97 11/17/17 03:37 99 35 11/17/17 03:30 98.8 89 16 114/67 (83) 99 11/17/17 03:00 98.8 91 16 115/75 (88) 98 11/17/17 02:30 99.0 90 16 115/74 (88) 98 11/17/17 02:00 99.0 93 16 114/71 (85) 98 11/17/17 02:00 95 11/17/17 01:31 99.1 94 16 122/74 (90) 97 11/17/17 01:30 99.1 90 16 98 11/17/17 01:00 99.1 91 16 116/68 (84) 98 11/17/17 00:30 99.0 95 16 120/74 (89) 99 11/17/17 00:00 104 11/17/17 00:00 99.0 91 16 114/69 (84) 99 11/17/17 00:00 35 11/16/17 23:30 99.0 92 16 114/75 (88) 99 11/16/17 23:23 100 35 11/16/17 23:00 98.8 90 16 114/72 (86) 100 11/16/17 22:30 98.6 91 16 123/67 (85) 100 11/16/17 22:00 101 11/16/17 21:15 98.4 91 16 137/86 (103) 100 11/16/17 21:00 98.6 99 17 128/72 (90) 99 11/16/17 20:45 98.6 91 16 126/72 (90) 100 11/16/17 20:30 98.4 88 16 129/70 (89) 100 11/16/17 20:15 98.4 91 16 115/69 (84) 100 11/16/17 20:00 35 11/16/17 20:00 98.4 89 16 134/74 (94) 100 11/16/17 20:00 89 11/16/17 19:45 98.4 89 16 122/70 (87) 99 11/16/17 19:38 99 35 Physical Exam CONSTITUTIONAL/GENERAL: This is a frail, elderly patient, on mechanical ventilation. Off sedation. TUBES/LINES/DRAINS: ETT, OG, right IJ central line, PIV, bilateral soft wrist restraints, Hills catheter, right chest tube, SCDs. SKIN: No jaundice, rashes, or lesions. Ecchymoses on upper extremities. No wounds seen anteriorly. Skin temperature appropriate. Not diaphoretic. EYES: Bilateral conjunctiva erythematous. pupils equal and round and reactive. ENT: Hearing grossly normal. Nose without bleeding or purulent drainage. Dry oral mucosa. CARDIOVASCULAR: Irregular, no murmurs noted. RESPIRATORY/CHEST: Orotracheally intubated on mechanical ventilation, diminished breath sounds bilaterally, right chest tube. GASTROINTESTINAL: Abdomen soft, non-tender, nondistended. bowel sounds hypoactive. GENITOURINARY: Without palpable bladder distension. Hills catheter in place, joanie urine. MUSCULOSKELETAL: Extremities with edema. No mottling or clubbing. NEUROLOGICAL: Awakens, lethargic, nods yes/no appropriately to some questions. PSYCHIATRIC: + Anxiety. . Diagnostic Tests Laboratory Laboratory Tests Test 11/15/17 05:50 11/15/17 10:20 11/16/17 05:10 11/16/17 12:45 Activated Partial Thromboplast Time 42.4 SEC (24.3-30.1) 37.0 SEC (24.3-30.1) 44.9 SEC (24.3-30.1) White Blood Count 9.5 TH/MM3 (4.0-11.0) 8.8 TH/MM3 (4.0-11.0) Red Blood Count 5.27 MIL/MM3 (4.00-5.30) 5.10 MIL/MM3 (4.00-5.30) Hemoglobin 12.9 GM/DL (11.6-15.3) 12.7 GM/DL (11.6-15.3) Hematocrit 40.8 % (35.0-46.0) 39.5 % (35.0-46.0) Mean Corpuscular Volume 77.5 FL (80.0-100.0) 77.3 FL (80.0-100.0) Mean Corpuscular Hemoglobin 24.5 PG (27.0-34.0) 24.8 PG (27.0-34.0) Mean Corpuscular Hemoglobin Concent 31.6 % (32.0-36.0) 32.1 % (32.0-36.0) Red Cell Distribution Width 19.4 % (11.6-17.2) 19.8 % (11.6-17.2) Platelet Count 232 TH/MM3 (150-450) 214 TH/MM3 (150-450) Mean Platelet Volume 8.1 FL (7.0-11.0) 8.1 FL (7.0-11.0) Neutrophils (%) (Auto) 89.8 % (16.0-70.0) 90.6 % (16.0-70.0) Lymphocytes (%) (Auto) 2.4 % (9.0-44.0) 3.6 % (9.0-44.0) Monocytes (%) (Auto) 7.7 % (0.0-8.0) 5.6 % (0.0-8.0) Eosinophils (%) (Auto) 0.0 % (0.0-4.0) 0.1 % (0.0-4.0) Basophils (%) (Auto) 0.1 % (0.0-2.0) 0.1 % (0.0-2.0) Neutrophils # (Auto) 8.5 TH/MM3 (1.8-7.7) 8.0 TH/MM3 (1.8-7.7) Lymphocytes # (Auto) 0.2 TH/MM3 (1.0-4.8) 0.3 TH/MM3 (1.0-4.8) Monocytes # (Auto) 0.7 TH/MM3 (0-0.9) 0.5 TH/MM3 (0-0.9) Eosinophils # (Auto) 0.0 TH/MM3 (0-0.4) 0.0 TH/MM3 (0-0.4) Basophils # (Auto) 0.0 TH/MM3 (0-0.2) 0.0 TH/MM3 (0-0.2) CBC Comment DIFF FINAL DIFF FINAL Differential Comment Blood Urea Nitrogen 24 MG/DL (7-18) 26 MG/DL (7-18) Creatinine 0.48 MG/DL (0.50-1.00) 0.43 MG/DL (0.50-1.00) Random Glucose 208 MG/DL (74-106) 133 MG/DL (74-106) Calcium Level 7.5 MG/DL (8.5-10.1) 7.5 MG/DL (8.5-10.1) Phosphorus Level 1.5 MG/DL (2.5-4.9) 1.5 MG/DL (2.5-4.9) Magnesium Level 2.1 MG/DL (1.5-2.5) 2.1 MG/DL (1.5-2.5) Sodium Level 146 MEQ/L (136-145) 147 MEQ/L (136-145) Potassium Level 4.0 MEQ/L (3.5-5.1) 4.5 MEQ/L (3.5-5.1) Chloride Level 112 MEQ/L (98-107) 112 MEQ/L (98-107) Carbon Dioxide Level 25.9 MEQ/L (21.0-32.0) 29.4 MEQ/L (21.0-32.0) Anion Gap 8 MEQ/L (5-15) 6 MEQ/L (5-15) Estimat Glomerular Filtration Rate 125 ML/MIN (>89) 142 ML/MIN (>89) Test 11/16/17 17:30 11/17/17 03:00 Activated Partial Thromboplast Time 50.0 SEC (24.3-30.1) 44.1 SEC (24.3-30.1) White Blood Count 10.0 TH/MM3 (4.0-11.0) Red Blood Count 5.15 MIL/MM3 (4.00-5.30) Hemoglobin 12.6 GM/DL (11.6-15.3) Hematocrit 40.4 % (35.0-46.0) Mean Corpuscular Volume 78.5 FL (80.0-100.0) Mean Corpuscular Hemoglobin 24.5 PG (27.0-34.0) Mean Corpuscular Hemoglobin Concent 31.2 % (32.0-36.0) Red Cell Distribution Width 20.2 % (11.6-17.2) Platelet Count 201 TH/MM3 (150-450) Mean Platelet Volume 8.6 FL (7.0-11.0) Blood Urea Nitrogen 28 MG/DL (7-18) Creatinine 0.46 MG/DL (0.50-1.00) Random Glucose 184 MG/DL (74-106) Total Protein 4.9 GM/DL (6.4-8.2) Calcium Level 7.3 MG/DL (8.5-10.1) Sodium Level 147 MEQ/L (136-145) Potassium Level 4.2 MEQ/L (3.5-5.1) Chloride Level 109 MEQ/L (98-107) Carbon Dioxide Level 29.0 MEQ/L (21.0-32.0) Anion Gap 9 MEQ/L (5-15) Estimat Glomerular Filtration Rate 131 ML/MIN (>89) Protein Corrected Calcium 8.5 MG/DL (8.5-10.1) Result Diagram: 11/17/17 0300 11/17/17 0300 Microbiology Microbiology Date/Time Source Procedure Growth Status 11/11/17 12:35 Blood Peripheral Aerobic Blood Culture - Final NO GROWTH IN 5 DAYS Complete 11/11/17 12:35 Blood Peripheral Anaerobic Blood Culture - Final NO GROWTH IN 5 DAYS Complete 11/13/17 18:15 Fluid Pleural Fluid Fungal Smear - Final NO FUNGAL ELEMENTS SEEN. Resulted 11/13/17 18:15 Fluid Pleural Fluid Fungal Culture Pending Resulted 11/11/17 23:40 Sputum Endotracheal Gram Stain - Final Complete 11/11/17 23:40 Sputum Endotracheal Sputum Culture - Final NO GROWTH IN 48 HOURS. Complete 11/12/17 17:40 Urine Catheterized Urine Urine Culture - Final Enterococcus Faecalis Complete Imaging Last Impressions Chest X-Ray 11/16/17 0600 Signed Impressions: CONCLUSION: 1. Right-sided chest tube remains in place. No evidence of pneumothorax. 2. Left lung base parenchymal opacity and small left pleural effusion unchange d. Renal Ultrasound 11/12/17 0000 Signed Impressions: CONCLUSION: 1. Ascites otherwise unremarkable. Head CT 11/11/17 1211 Signed Impressions: CONCLUSION: 1. Negative CT Head non contrast. CT Angiography 11/11/17 0000 Signed Impressions: CONCLUSION: 1. No pulmonary embolus. 2. Bilateral pleural effusions being moderate to large on the right and mild o n the left. 3. Suspected atelectasis at the posterior lower lobes bilaterally. 4. Scattered mosaic attenuation pattern typically seen with interstitial disea se and/or air trapping. Procedures * 11/13/17 - right pigtail chest tube placement * 11/11/17 - right IJ central line placement * 11/11/17 - right radial arterial line placement * 11/11/17 - intubated . Assessment and Plan Disease Oriented Problem List: (1) Pneumonia (2) UTI (urinary tract infection) (3) Respiratory failure (4) Pleural effusion (5) Respiratory acidosis (6) Hypoxemia (7) Hypertension (8) Impaired mobility and activities of daily living (9) Right hemiparesis (10) Dyslipidemia (11) HTN (hypertension) (12) Muscular dystrophy (13) Atrial fibrillation Symptom Scale: (1) Dyspnea 0-10 Scale: Unable to quantify (2) Weakness 0-10 Scale: Unable to quantify (3) Pain 0-10 Scale: Unable to quantify (4) Anxiety 0-10 Scale: Unable to quantify Pertinent Non-Medical Issues Psychosocial: for 38 years. Spiritual: Evangelical darrel. Requests .net developer support for [employer]. Legal:Patient appears capacitated to make her own health care decisions. Recommend shared decision making as patient remains intubated. Spouse unable to local written advanced directives. According to [place] statutes, healthcare proxy decision making falls to the patient's spouse, Daniel Martin. Ethical issues impacting care: No known concerns at this time. . Important Contacts * Daniel Martin, spouse/HCP: [phone] Prognosis Ms. Martin is a 81-year-old female with muscular dystrophy, recent stroke and prolonged rehabilitation, admitted with acute shortness of breath found to have acute hypercapnic respiratory failure, was intubated, placed on mechanical ventilation and admitted to ICU. Right chest tube in place. Patient has been failing CPAP trials. Overall prognosis appears poor for meaningful recovery given recent trajectory of decline. . Code Status: No Code Plan * Patient appears capacitated to make her own health care decisions. Recommend shared decision making as patient remains intubated. Spouse unable to local written advanced directives. According to [place] statutes, healthcare proxy decision making falls to the patient's spouse, Daniel Martin. * NO CODE - per patient wishes, supported by her spouse on 11/15/17. * Goals: Patient's spouse, Daniel wanted to speak with dynamics ax solution architect prior to making any additional decisions. Dr. Kyle agreed to speak with patient's spouse following my visit today. Palliative care will follow up on 11/18/17 to further clarify treatment goals. * SYMPTOMS: Pain: Patient intermittently nods yes to pain, it appears most of her pain is secondary to ETT and OG tubes. As needed fentanyl available. Weakness: Secondary to stroke, muscular dystrophy, declining functional status. Dyspnea: On Solu-Medrol, on mechanical ventilation. Will continue CPAP trials. Anxiety: Long history of anxiety/claustrophobia. Propofol and lorazepam available. Will restart propofol if patient fails CPAP trial this afternoon. * Palliative care will continue to follow throughout hospital course to assist with further clarification of adequate treatment goals and symptom management. . Attestation To help prompt me to consider important information that might be impacting today's encounter and assessment, information from prior notes written by myself or my colleagues may have been "brought forward" into today's note. My signature on this note, however, is an attestation that I personally performed the exam, history, and/or decision-making noted today, and, unless otherwise indicated, the interactions with patient, family, and staff as well as the review of records all occurred today. I also attest that the listed assessment and stated plan reflect my best clinical judgment today based on the combination of historical information, prior notes, and today's exam/ interactions. When time spent is documented, it refers only to time spent today by the signer, or if indicated, combined time spent today by collaborating physician/nurse practitioner. Rocio Vanessa Nov 17, 2017 19:41
[2017-11-18] VITALS (21 sets, daily range): BP systolic 119–122; BP diastolic 64–69; PULSE 75–106; RESP 16–17; TEMP 97.9; O2SAT 97–100
[2017-11-18] MEDS: INSULIN NovoLIN REGULAR SUPPLEMENTAL SCALE SQ SCH ×3 (03:00→11:00)
[2017-11-18] MEDS: methylPREDNISolone SOD SUCC 125 MG/2 ML VIAL IV PUSH SCH (03:43)
[2017-11-18] MEDS: FREE WATER G-TUBE SCH ×2 (03:43→08:00)
--- NOTE | 2017-11-18 07:09 | HHI.CCPN ---
Subjective Remarks/Hospital Course 81-year-old female presents from home via EMS due to respiratory distress. She was most recently admitted to [facility] 06/15/17 due to acute ischemic stroke and underwent IR embolectomy. She also has a history of muscular dystrophy, glaucoma, hypertension, hyperlipidemia, hypothyroidism, atrial fibrillation on chronic anticoagulation with Eliquis. After her stroke she was treated at [facility] and was discharged to home July 10, 2017. Her states she has generally been getting "weaker" over the last couple of weeks and has not been eating as much. She has complained of nausea but has not had any vomiting, diarrhea, abdominal pain, cough, fever, headache or chest pain. She has had decreased mobility over the last couple of weeks. Apparently she was able to use a walker when she left [place] but now she has had difficulty transferring to a wheelchair. Because of her decreased mobility a Hills was placed on Thursday 11/09. She also has decubitus ulcers on her buttocks and was receiving home health care to help manage her wounds. Earlier this morning home health came to assist her with her bath and reportedly sats were in the 80s. Subsequently home health came to assist with managing her wounds and reportedly sats were in the 50s. She was brought to the emergency department where she was lethargic on arrival and had acute hypercapnic respiratory failure with pH 7.22/PaCO2 of 76/PaO2 of 70 on 5 L nasal cannula. Chest x-ray demonstrated opacification of the right lower lobe which may be a combination of consolidation and effusion. She was placed on BiPAP and was initially going to be admitted to the hospitalist service on [facility].. She became hypotensive and unresponsive and so she was intubated. There is been difficulty obtaining cuff pressures and radial art line was attempted but unsuccessful. She has been started on Levophed. She has received normal saline total of 2 L bolus. I have placed a central line and art line. She will be admitted to [facility]. 11/12 Off levophed. R pleural effusion needs drainage but waiting 48 hours after eliquis. UOP improved. Initiating tube feeds. 11/13 Held heparin and I performed R pigtail catheter R chest this evening with drainage of >650 serous fluid so far. Will CPAP tomorrow and see if able to extubate. 11/14 Patient remains intubated and sedated. On Heparin drip. 11/15 No events overnight. Sedated with Diprivan and intubated. Did not tolerate CPAP trials yesterday. Afebrile. On Heparin drip. 11/16: no improvements. still failing CPAP trials. encephalopathy persists. Subjective: 11/17: no changes or improvements. fails CPAP trials- unable to wean pressure support. long discussion with today- I do not think she will successfully separate from mechanical ventilation. 11/18 No events overnight. Sedated with Diprivan and intubated. Afebrile. On Heparin drip. Tolerating tube feeds. Objective Vital Signs Date Time Temp Pulse Resp B/P (MAP) Pulse Ox O2 Delivery O2 Flow Rate FiO2 11/18/17 06:00 78 11/18/17 04:00 35 11/18/17 04:00 97.9 16 122/69 (86) 100 Intake and Output 11/18/17 11/18/17 11/19/17 08:00 16:00 00:00 Intake Total 1580 ml Output Total 690 ml Balance 890 ml Result Diagram: 11/17/17 0300 11/17/17 0300 Other Results Laboratory Tests Test 11/18/17 05:53 Imaging Last Impressions Chest X-Ray 11/16/17 0600 Signed Impressions: CONCLUSION: 1. Right-sided chest tube remains in place. No evidence of pneumothorax. 2. Left lung base parenchymal opacity and small left pleural effusion unchange d. Renal Ultrasound 11/12/17 0000 Signed Impressions: CONCLUSION: 1. Ascites otherwise unremarkable. Head CT 11/11/17 1211 Signed Impressions: CONCLUSION: 1. Negative CT Head non contrast. CT Angiography 11/11/17 0000 Signed Impressions: CONCLUSION: 1. No pulmonary embolus. 2. Bilateral pleural effusions being moderate to large on the right and mild o n the left. 3. Suspected atelectasis at the posterior lower lobes bilaterally. 4. Scattered mosaic attenuation pattern typically seen with interstitial disea se and/or air trapping. Objective Remarks GENERAL: Elderly under nourished appearing frail female who is orotracheally intubated. SKIN: Skin perfused. HEAD: Atraumatic. Normocephalic. EYES: Right pupil is pinpoint, left pupil is 2 mm sluggishly reactive to 1 mm. Bilateral conjunctive is extremely erythematous and inflamed appearing. No exudate. ENT: No nasal bleeding or discharge. Mucous membranes dry NECK: Trachea midline. No JVD. CARDIOVASCULAR: Irregularly irregular. afib. RESPIRATORY: Orotracheally intubated on mechanical ventilation. No significant secretions with suctioning. Diminished breath sounds bilaterally. No wheezes rales GASTROINTESTINAL: Abdomen soft, non-tender, nondistended. Vertical scar infraumbilical. : Hills in place with yellow urine output. MUSCULOSKELETAL: Extremities without clubbing, cyanosis 2+ edema bilateral lower extremities below the knee. NEUROLOGICAL: Eyes are spontaneously open and states that she often sleeps this way. Withdraws with all extremities to noxious stimuli. Not following commands or purposeful. Now on propofol for sedation A/P Assessment and Plan NEURO: Muscular dystrophy Prior stroke June 2017 Acute encephalopathy Propofol for sedation. Target RASS -[address] brain 11/11 - no acute abnormality RESP: Acute hypercapnic respiratory failure Bilateral pleural effusions, Bilateral consolidations/atelectasis PRVC RR 16, TV 450, IT:1.0, PEEP:5, FIO2: 35% Continue with vent support keep sats >92% ventilator bundle, DuoNeb every 4 hours, albuterol every 2 hours as needed. SBT as burke. Pulmonology following, Dr. Gray. Solumederol 40mg Q12 s/p Right pigtail catheter placement 11/13 for plerual effusion 650ml pleural fluid removed ( transudative effusion) Monitor drainage CV: Atrial fibrillation Pulmonary Hypertension Severe TR Monitor HR and BP keep MAP>65mmHg Serial torponin negative. 2D echo from 06/16/17mild concentric LVH. EF 60-65%. Mild left atrial dilation. Moderate thickening of mitral valve. Severe tricuspid regurg. Pulmonary artery pressure 52.8 mm She is chronically on Eliquis on hold. Continue with heparin drip as she is at high risk of stroke. GI: Orogastric tube. Jevity 1.5@ 50 mL/h per nutrition recommendations FEN/RENAL: Acute kidney-improving Monitor renal function, I/O's, electrolytes replacement as needed Renal ultrasound no hydronephrosis, Urine eosinophil negative. On lasix 40mg iv q8h d/c Free water ID: UTI Aspiration versus community-acquired pneumonia Hills was replaced in the emergency department 11/11 Blood cultures no growth to date. Urine culture with group D enterococcus. 11/11 Urine Legionella and pneumococcal antigen negative, Sputum culture NGTD. Received ceftriaxone and azithromycin in the emergency department. Off abx s/p Cefepime, and azithromycin ( finished 7 days course 11/17) monitor for signs of infections ( Fever, WBC) Conjunctivitis/probable keratitis secondary to inability to close eyes completely. Patient previously refused surgical intervention for this Erythromycin ophthalmic twice daily Levofloxacin ocular drops Glaucoma Continue timolol 0.25% ophthalmic each eye every 12 hours HEME: Chronic anticoagulation with Eliquis for atrial fibrillation and history of stroke Eliquis held, on Heparin drip as per above Monitor CBC, coags ENDO: SSI medium scale, Levemir 5units Q12 for glycemic control Hypothyroidism TSH:4.2 on 11/11 PROPH: SCDs for DVT prophylaxis. Heparin drip as per above. Famotidine for stress ulcer prophylaxis ACCESS: piv Per Dr. Higuera: Her states she previously made advanced directives but they cannot be obtained because they are in a home in [place] and they no longer have access to them. He says he does not know which hospital she was in when she made them and does not believe that they were drawn up by an plastic cutter that would have a copy. He states that he is familiar with her wishes and that she would wish to be full code but did not want prolonged life support "if there was no hope of getting better". Palliative care met with family today and they elected to proceed with withdrawal life support and transition to comfort care. Vincent Mccullough MD Nov 18, 2017 07:09
[2017-11-18] MEDS ORDERED: RESP: ALBUTEROL 2.5 MG/IPRATROPIUM 0.5 MG NEB (PRN) NEB (07:15)
[2017-11-18 07:17] LABS: BICARBONATE 21.5 MEQ/L (21.0-32.0); CALCIUM 7.3 MG/DL (8.5-10.1); CREATININE 0.43 MG/DL (0.50-1.00)
[2017-11-18 07:50] LABS: CALCIUM-PROTEIN CORRECTED 8.8 MG/DL (8.5-10.1); TOTAL PROTEIN 4.4 GM/DL (6.4-8.2)
[2017-11-18] MEDS: CHLORHEXIDINE 0.12% (ORAL KIT) 15 ML CUP MT SCH (08:00)
[2017-11-18] MEDS: INSULIN DETEMIR 100 UNITS/ML VIAL SQ SCH (09:00)
[2017-11-18] MEDS: FUROSEMIDE 40 MG/4 ML VIAL IV PUSH SCH (09:09)
[2017-11-18] MEDS: FAMOTIDINE 20 MG/2 ML VIAL IV PUSH SCH (09:09)
[2017-11-18] MEDS: SODIUM CHLORIDE 0.9% FLUSH 10 ML FLUSH IV FLUSH SCH (09:10)
[2017-11-18] MEDS: PROPOFOL 1000 MG/100 ML INJ 100 ML IV PRN (09:11)
[2017-11-18] MEDS: ERYTHROMYCIN 0.5% OPTH OINT 3.5 GM TUBO EACH EYE SCH (09:16)
[2017-11-18] MEDS: TIMOLOL MALEATE 0.25% OPHT SOLN 5 ML BTL EACH EYE SCH (09:16)
[2017-11-18] MEDS ORDERED: RESP: ALBUTEROL 2.5 MG/IPRATROPIUM 0.5 MG NEB (SCH) NEB (10:00)
[2017-11-18 10:18] LABS: HEMATOCRIT 42.2 % (35.0-46.0); HEMOGLOBIN 13.3 GM/DL (11.6-15.3); MEAN CELL VOLUME 77.8 FL (80.0-100.0); MEAN CORPUSCULAR HEMOGLOBIN 24.6 PG (27.0-34.0); MEAN CORPUSCULAR HGB CONC 31.6 % (32.0-36.0); MEAN PLATELET VOLUME 8.8 FL (7.0-11.0); PLATELET COUNT 202 TH/MM3 (150-450); RED BLOOD COUNT 5.42 MIL/MM3 (4.00-5.30); RED CELL DISTRIBUTION WIDTH 20.1 % (11.6-17.2); WHITE BLOOD COUNT 10.7 TH/MM3 (4.0-11.0)
[2017-11-18] MEDS ORDERED: LORazepam 2 MG/ML VIAL IV PUSH ONE ×2 (14:30→15:00)
[2017-11-18] MEDS ORDERED: MORPHINE SULFATE 8 MG/ML INJ IV PUSH ONE (14:30)
[2017-11-18] MEDS ORDERED: HYOSCYAMINE 0.5 MG/ML AMP IV PUSH ONE (14:30)
--- NOTE | 2017-11-18 14:35 | HHI.HCPN ---
Reason for visit a. To assist with evaluation and management of symptoms including: dyspnea, anxiety, weakness, pain. b. To assist medical decision maker(s) with: better understanding of current medical conditions; weighing benefits/burdens of medical treatment options; making medical treatment decisions. . Subjective/Interval History Patient seen and examined in ICU. , Daniel at bedside. On mech vent. Patient is awake. Off sedation. She is waiting for her daughter to arrive from [place]. She seems to be indicating to her that she wants to "take out the tubes after daughter arrives." She nods yes to indicate that is what she is wanting. Anticipatory guidance provided. She denies pain. Nods yes to anxiety and SOB, unable to quantify or qualify as she remains intubated on mech vent. Tachycardic. Labs stable. Total protein 4.4. No new imaging. Discussed with Dr. North. He verbalizes that patient has a terminal condition and support her decision for comfort measures with withdrawal of life support. . Family/friend interactions 10:30am: Met with patient and spouse at bedside. The patient is awaiting the arrival of her daughter from [place], she seems to be wanting to proceed with comfort measures and compassionate withdrawal of life support after daughter arrives. 2pm: Mr. Martin came out of room to notify the patient is ready to "take out the tubes." He is asking how long she will last, advised minutes to days is possible. As we were talking their daughter arrived. Allowed time for them to visit as a family. Anticipatory guidance provided to patient and her family. She is ready to proceed. Family supports patient wishes. Offered support. Questions answered. . Advance Directives Living Will: Completed, but not made available Health Care Surrogate: Completed, but not made available Advance Directive Specifics Health Care Surrogate(s): Patient appears capacitated to make her own health care decisions. Recommend shared decision making as patient remains intubated. Spouse unable to local written advanced directives. According to [place] statutes, healthcare proxy decision making falls to the patient's spouse, Daniel Martin. . Documented care wishes: Spouse unable to find written advance directives. . Significant change in goals: NO CODE (DNR/DNI). Patient is ready to "take out the tubes." Patient confirmed she is ready to proceed with withdrawal of life support and comfort measures. Family supports patient wishes. . Objective Vital Signs Date Time Temp Pulse Resp B/P (MAP) Pulse Ox O2 Delivery O2 Flow Rate FiO2 11/18/17 14:00 104 11/18/17 13:30 103 11/18/17 13:00 101 11/18/17 12:30 103 11/18/17 12:20 97 35 11/18/17 12:00 35 11/18/17 12:00 106 11/18/17 11:30 100 11/18/17 11:00 101 11/18/17 10:30 104 11/18/17 10:00 99 11/18/17 09:30 95 11/18/17 09:00 75 11/18/17 08:40 99 35 11/18/17 08:30 79 11/18/17 08:00 35 11/18/17 08:00 85 11/18/17 06:00 78 11/18/17 04:00 85 11/18/17 04:00 35 11/18/17 04:00 97.9 85 16 122/69 (86) 100 11/18/17 03:51 100 35 11/18/17 02:00 94 11/18/17 01:16 100 35 11/18/17 00:00 85 11/18/17 00:00 98.4 85 17 119/64 (82) 100 11/18/17 00:00 35 11/17/17 22:00 93 11/17/17 20:00 35 11/17/17 20:00 98.1 87 16 119/65 (83) 100 11/17/17 20:00 89 11/17/17 19:35 100 35 11/17/17 18:00 87 11/17/17 16:00 98.1 87 16 117/67 (84) 100 11/17/17 16:00 35 11/17/17 16:00 87 11/17/17 15:55 94 35 Intake & Output 11/18/17 11/18/17 07:00 19:00 Intake Total 1780 ml Output Total 690 ml Balance 1090 ml IV Total 335 ml Tube Feeding 495 ml Other 950 ml Output Urine Total 650 ml Chest Tube Drainage Total 40 ml Physical Exam CONSTITUTIONAL/GENERAL: This is a frail, elderly patient, on mechanical ventilation. Off sedation. TUBES/LINES/DRAINS: ETT, OG, right IJ central line, PIV, bilateral soft wrist restraints, Hills catheter, right chest tube, SCDs. SKIN: Ecchymoses on upper extremities. No wounds seen anteriorly. Skin temperature appropriate. Not diaphoretic. EYES: Bilateral conjunctiva erythematous. pupils equal and round and reactive. ENT: Copious amount of clear, oral secretions noted. CARDIOVASCULAR: Irregular, no murmurs noted. RESPIRATORY/CHEST: Orotracheally intubated on mechanical ventilation, diminished breath sounds bilaterally, right chest tube. GASTROINTESTINAL: Abdomen soft, non-tender, nondistended. bowel sounds hypoactive. GENITOURINARY: Without palpable bladder distension. Hills catheter in place, joanie urine. MUSCULOSKELETAL: Extremities with edema. No mottling or clubbing. NEUROLOGICAL: Awake and alert. Nods yes/no appropriately to some questions. PSYCHIATRIC: + Anxiety. . Diagnostic Tests Laboratory Laboratory Tests Test 11/16/17 05:10 11/16/17 12:45 11/16/17 17:30 11/17/17 03:00 White Blood Count 8.8 TH/MM3 (4.0-11.0) 10.0 TH/MM3 (4.0-11.0) Red Blood Count 5.10 MIL/MM3 (4.00-5.30) 5.15 MIL/MM3 (4.00-5.30) Hemoglobin 12.7 GM/DL (11.6-15.3) 12.6 GM/DL (11.6-15.3) Hematocrit 39.5 % (35.0-46.0) 40.4 % (35.0-46.0) Mean Corpuscular Volume 77.3 FL (80.0-100.0) 78.5 FL (80.0-100.0) Mean Corpuscular Hemoglobin 24.8 PG (27.0-34.0) 24.5 PG (27.0-34.0) Mean Corpuscular Hemoglobin Concent 32.1 % (32.0-36.0) 31.2 % (32.0-36.0) Red Cell Distribution Width 19.8 % (11.6-17.2) 20.2 % (11.6-17.2) Platelet Count 214 TH/MM3 (150-450) 201 TH/MM3 (150-450) Mean Platelet Volume 8.1 FL (7.0-11.0) 8.6 FL (7.0-11.0) Neutrophils (%) (Auto) 90.6 % (16.0-70.0) Lymphocytes (%) (Auto) 3.6 % (9.0-44.0) Monocytes (%) (Auto) 5.6 % (0.0-8.0) Eosinophils (%) (Auto) 0.1 % (0.0-4.0) Basophils (%) (Auto) 0.1 % (0.0-2.0) Neutrophils # (Auto) 8.0 TH/MM3 (1.8-7.7) Lymphocytes # (Auto) 0.3 TH/MM3 (1.0-4.8) Monocytes # (Auto) 0.5 TH/MM3 (0-0.9) Eosinophils # (Auto) 0.0 TH/MM3 (0-0.4) Basophils # (Auto) 0.0 TH/MM3 (0-0.2) CBC Comment DIFF FINAL Differential Comment Activated Partial Thromboplast Time 37.0 SEC (24.3-30.1) 44.9 SEC (24.3-30.1) 50.0 SEC (24.3-30.1) 44.1 SEC (24.3-30.1) Blood Urea Nitrogen 26 MG/DL (7-18) 28 MG/DL (7-18) Creatinine 0.43 MG/DL (0.50-1.00) 0.46 MG/DL (0.50-1.00) Random Glucose 133 MG/DL (74-106) 184 MG/DL (74-106) Calcium Level 7.5 MG/DL (8.5-10.1) 7.3 MG/DL (8.5-10.1) Phosphorus Level 1.5 MG/DL (2.5-4.9) Magnesium Level 2.1 MG/DL (1.5-2.5) Sodium Level 147 MEQ/L (136-145) 147 MEQ/L (136-145) Potassium Level 4.5 MEQ/L (3.5-5.1) 4.2 MEQ/L (3.5-5.1) Chloride Level 112 MEQ/L (98-107) 109 MEQ/L (98-107) Carbon Dioxide Level 29.4 MEQ/L (21.0-32.0) 29.0 MEQ/L (21.0-32.0) Anion Gap 6 MEQ/L (5-15) 9 MEQ/L (5-15) Estimat Glomerular Filtration Rate 142 ML/MIN (>89) 131 ML/MIN (>89) Total Protein 4.9 GM/DL (6.4-8.2) Protein Corrected Calcium 8.5 MG/DL (8.5-10.1) Test 11/18/17 05:53 11/18/17 09:51 Blood Urea Nitrogen 33 MG/DL (7-18) Creatinine 0.43 MG/DL (0.50-1.00) Random Glucose 136 MG/DL (74-106) Total Protein 4.4 GM/DL (6.4-8.2) Calcium Level 7.3 MG/DL (8.5-10.1) Sodium Level 139 MEQ/L (136-145) Potassium Level 3.8 MEQ/L (3.5-5.1) Chloride Level 107 MEQ/L (98-107) Carbon Dioxide Level 21.5 MEQ/L (21.0-32.0) Anion Gap 11 MEQ/L (5-15) Estimat Glomerular Filtration Rate 142 ML/MIN (>89) Protein Corrected Calcium 8.8 MG/DL (8.5-10.1) White Blood Count 10.7 TH/MM3 (4.0-11.0) Red Blood Count 5.42 MIL/MM3 (4.00-5.30) Hemoglobin 13.3 GM/DL (11.6-15.3) Hematocrit 42.2 % (35.0-46.0) Mean Corpuscular Volume 77.8 FL (80.0-100.0) Mean Corpuscular Hemoglobin 24.6 PG (27.0-34.0) Mean Corpuscular Hemoglobin Concent 31.6 % (32.0-36.0) Red Cell Distribution Width 20.1 % (11.6-17.2) Platelet Count 202 TH/MM3 (150-450) Mean Platelet Volume 8.8 FL (7.0-11.0) Activated Partial Thromboplast Time 55.3 SEC (24.3-30.1) Result Diagram: 11/18/17 0951 11/18/17 0553 Microbiology Microbiology Date/Time Source Procedure Growth Status 11/11/17 12:35 Blood Peripheral Aerobic Blood Culture - Final NO GROWTH IN 5 DAYS Complete 11/11/17 12:35 Blood Peripheral Anaerobic Blood Culture - Final NO GROWTH IN 5 DAYS Complete 11/13/17 18:15 Fluid Pleural Fluid Fungal Smear - Final NO FUNGAL ELEMENTS SEEN. Resulted 11/13/17 18:15 Fluid Pleural Fluid Fungal Culture Pending Resulted 11/11/17 23:40 Sputum Endotracheal Gram Stain - Final Complete 11/11/17 23:40 Sputum Endotracheal Sputum Culture - Final NO GROWTH IN 48 HOURS. Complete 11/12/17 17:40 Urine Catheterized Urine Urine Culture - Final Enterococcus Faecalis Complete Imaging Last Impressions Chest X-Ray 11/16/17 0600 Signed Impressions: CONCLUSION: 1. Right-sided chest tube remains in place. No evidence of pneumothorax. 2. Left lung base parenchymal opacity and small left pleural effusion unchange d. Renal Ultrasound 11/12/17 0000 Signed Impressions: CONCLUSION: 1. Ascites otherwise unremarkable. Head CT 11/11/17 1211 Signed Impressions: CONCLUSION: 1. Negative CT Head non contrast. CT Angiography 11/11/17 0000 Signed Impressions: CONCLUSION: 1. No pulmonary embolus. 2. Bilateral pleural effusions being moderate to large on the right and mild o n the left. 3. Suspected atelectasis at the posterior lower lobes bilaterally. 4. Scattered mosaic attenuation pattern typically seen with interstitial disea se and/or air trapping. Procedures * 11/13/17 - right pigtail chest tube placement * 11/11/17 - right IJ central line placement * 11/11/17 - right radial arterial line placement * 11/11/17 - intubated . Assessment and Plan Disease Oriented Problem List: (1) Pneumonia (2) UTI (urinary tract infection) (3) Respiratory failure (4) Pleural effusion (5) Respiratory acidosis (6) Hypoxemia (7) Hypertension (8) Impaired mobility and activities of daily living (9) Right hemiparesis (10) Dyslipidemia (11) HTN (hypertension) (12) Muscular dystrophy (13) Atrial fibrillation Symptom Scale: (1) Dyspnea 0-10 Scale: Unable to quantify (2) Weakness 0-10 Scale: Unable to quantify (3) Pain 0-10 Scale: Unable to quantify (4) Anxiety 0-10 Scale: Unable to quantify Pertinent Non-Medical Issues Psychosocial: for 38 years. 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 Legal:Patient appears capacitated to make her own health care decisions. Recommend shared decision making as patient remains intubated. Spouse unable to local written advanced directives. According to [place] statutes, healthcare proxy decision making falls to the patient's spouse, Daniel Martin. Ethical issues impacting care: No known concerns at this time. . Important Contacts * Daniel Martin, spouse/HCP: [phone] Prognosis Ms. Martin is a 81-year-old female with muscular dystrophy, recent stroke and prolonged rehabilitation, admitted with acute shortness of breath found to have acute hypercapnic respiratory failure, was intubated, placed on mechanical ventilation and admitted to ICU. Right chest tube in place. Patient has been failing CPAP trials, unable to be weaned from vent. Patient is terminal. . Code Status: No Code Plan * Patient appears capacitated to make her own health care decisions. Recommend shared decision making as patient remains intubated. Spouse unable to local written advanced directives. According to [place] statutes, healthcare proxy decision making falls to the patient's spouse, Daniel Martin. * NO CODE - per patient wishes, supported by her spouse on 11/15/17. * Goals: Patient's spouse, Daniel and patient want to proceed with compassionate withdrawal of life support now that daughter has arrived. Patient is ready to "take out the tubes." Patient confirmed she is ready to proceed with withdrawal of life support and comfort measures. Family supports patient wishes. * Discussed with Dr. North and Dr. Soriano. * Exhibits B & C on chart. * Orders written for comfort measures with withdrawal of life support. * SYMPTOMS: Pain: Patient intermittently nods yes to pain, it appears most of her pain is secondary to ETT and OG tubes. As needed fentanyl available. Weakness: Secondary to stroke, muscular dystrophy, declining functional status. Dyspnea: On Solu-Medrol, on mechanical ventilation. Anxiety: Long history of anxiety/claustrophobia. Comfort measure order written. * Palliative care will continue to follow throughout hospital course to assist with further clarification of adequate treatment goals and symptom management. . Attestation To help prompt me to consider important information that might be impacting today's encounter and assessment, information from prior notes written by myself or my colleagues may have been "brought forward" into today's note. My signature on this note, however, is an attestation that I personally performed the exam, history, and/or decision-making noted today, and, unless otherwise indicated, the interactions with patient, family, and staff as well as the review of records all occurred today. I also attest that the listed assessment and stated plan reflect my best clinical judgment today based on the combination of historical information, prior notes, and today's exam/ interactions. When time spent is documented, it refers only to time spent today by the signer, or if indicated, combined time spent today by collaborating physician/nurse practitioner. Rocio Vanessa Nov 18, 2017 14:35
[2017-11-18] MEDS ORDERED: MORPHINE SULFATE 4 MG/ML INJ IV PUSH PRN (15:00)
[2017-11-18] MEDS ORDERED: LORazepam 2 MG/ML VIAL IV PUSH PRN ×2 (15:00)
[2017-11-18] MEDS ORDERED: MORPHINE SULFATE 8 MG/ML INJ IV PUSH PRN (15:00)
[2017-11-18] MEDS ORDERED: HYOSCYAMINE 0.5 MG/ML AMP IV PUSH PRN (15:00)
[2017-11-18] MEDS ORDERED: ACETAMINOPHEN 650 MG SUPP RECTAL PRN (15:00)
[2017-11-18] MEDS ORDERED: BISACODYL 10 MG SUPP RECTAL PRN (15:00)
[2017-11-18] MEDS ORDERED: FUROSEMIDE 20 MG/2 ML VIAL IV PUSH PRN (15:00)
[2017-11-18] MEDS ORDERED: MORPHINE SULFATE 4 MG/ML INJ IV PUSH ONE (15:00)
[2017-11-18] MEDS ORDERED: LORazepam 2 MG/ML VIAL IV PUSH SCH (16:00)
== END 2017-11-18 16:11 | disposition expired | DRG 207 ==
LOC: NEPC 11:55 → NEDA 15:49 → HIMN 19:40
PROVIDERS: ADMIT Emergency Medicine; ATTEND Emergency Medicine
PROC: 5A1955Z Respiratory Ventilation, Greater than 96 Consecutive Hours (ICD-10-PCS; principal; 2017-11-11)
PROC: 03HY32Z Insertion of Monitoring Device into Upper Artery, Percutaneous Approach (ICD-10-PCS; 2017-11-11)
PROC: 0BH17EZ Insertion of Endotracheal Airway into Trachea, Via Natural or Artificial Opening (ICD-10-PCS; 2017-11-11)
PROC: 02HV33Z Insertion of Infusion Device into Superior Vena Cava, Percutaneous Approach (ICD-10-PCS; 2017-11-11)
PROC: B543ZZA Ultrasonography of Right Jugular Veins, Guidance (ICD-10-PCS; 2017-11-11)
PROC: 0W9930Z Drainage of Right Pleural Cavity with Drainage Device, Percutaneous Approach (ICD-10-PCS; 2017-11-13)
DX: J96.01 Acute respiratory failure with hypoxia (principal); J18.9 Pneumonia, unspecified organism; G93.40 Encephalopathy, unspecified; Z51.5 Encounter for palliative care; N17.9 Acute kidney failure, unspecified; J90 Pleural effusion, not elsewhere classified; G71.0 Muscular dystrophy; E87.2 Acidosis; L89.309 Pressure ulcer of unspecified buttock, unspecified stage; N39.0 Urinary tract infection, site not specified; J98.11 Atelectasis; G81.91 Hemiplegia, unspecified affecting right dominant side; I95.9 Hypotension, unspecified; I48.91 Unspecified atrial fibrillation; J96.02 Acute respiratory failure with hypercapnia; I10 Essential (primary) hypertension; E78.5 Hyperlipidemia, unspecified; E03.9 Hypothyroidism, unspecified; I07.1 Rheumatic tricuspid insufficiency; H10.9 Unspecified conjunctivitis; I27.20 Pulmonary hypertension, unspecified; H16.9 Unspecified keratitis; M15.9 Polyosteoarthritis, unspecified; H40.9 Unspecified glaucoma; F41.9 Anxiety disorder, unspecified; F40.240 Claustrophobia; Z66 Do not resuscitate; Z79.01 Long term (current) use of anticoagulants; Z88.1 Allergy status to other antibiotic agents; Z85.828 Personal history of other malignant neoplasm of skin; Z86.73 Personal history of transient ischemic attack (TIA), and cerebral infarction without residual deficits; Z96.643 Presence of artificial hip joint, bilateral; Z96.652 Presence of left artificial knee joint; Z99.3 Dependence on wheelchair
CPT/HCPCS: 31500; 32551; 36600; 70450; 71045; 71275; 76775; 76937; 80048; 80053; 81001; 82140; 82550; 82552; 82805; 82945; 82948; 83605; 83615; 83735; 83880; 83986; 84100; 84132; 84155; 84157; 84443; 84484; 85025; 85027; 85610; 85730; 87015; 87040; 87070; 87077; 87086; 87102; 87116; 87186; 87205; 87206; 87449; 87641; 88112; 88305; 89051; 93005; 93306; 94002; 94003; 94640; 94664; 96361; 96365; 96368; 96375; J0330; J0456; J0692; J0696; J1120; J1644; J1815; J1940; J1980; J2060; J2250; J2270; J2930; J3480; J7030; J7040; J7050; J7120; Q9967